=== PATIENT | female | born 1945 | race Two or more races ===

== ENCOUNTER 2018-10-28 00:53 | Inpatient (IN) | payer MEDICARE, MEDICAID ==
[2018-10-28] VITALS (7 sets, daily range): BP systolic 100–155; BP diastolic 66–80
[~2018-10-28] VITALS: Ht 154.9 cm; Wt 54.6 kg
--- NOTE | 2018-10-28 00:53 | NUR ---
ED Nurse Note: Patient marium from [facility] c/o ALOC that started about 14 today, patients baseline is alert and oriented x0. patient responds to deep pain, patient is nonverbal and is trached. patient presents with a disheveled apperance, has a pressure ulcer on the lower coccyx area, presents with no fever. initially [facility] called due to patient having an episode of hypotensiveness, states that it was 70/40 initially. when EMS got to the facility, stated blood pressure was 118/72. at time of arrival patients blood pressure is 103/82. IV started on right wrist 18 gauge, barboza inserted. will wait for further oders
--- NOTE | 2018-10-28 00:55 | NUR ---
RESPIRATORY NOTE: Pt received in ER, placed on vent with settings AC/VC 16, 500 VT, FiO2 40%, PEEP +5. Pt is trach-dependent with cuffed portex 7. Bilateral rhonchi breath sounds noted upon auscultation. Thin white, yellow secretions noted upon sxn. Pt is disoriented. No respiratory distress noted. Alarms on and audible. Ambubag present in room. Will continue to monitor.
--- NOTE | 2018-10-28 01:17 | Emergency Room Report ---
History of Present Illness General Chief Complaint: Altered Level of Consciousness Source: Medical Record, EMS Present Illness HPI This is a 72-year-old female who is vent dependent and also has a tracheostomy and G-tube. She presents with low blood pressure. detention called 911 because her blood pressure was 70/40. On arrival at the [facility], EMS got blood pressure 120/70. detention decided to send the patient here for evaluation just in case. Unable to get any history from this patient. She is nonverbal. There is no fever chills. There is no cough or congestion. Allergies: Coded Allergies: No Known Allergies (Unverified , 10/28/18) Patient History Past Medical History: see triage record, old chart reviewed Past Surgical History: other Pertinent Family History: none Social History: Denies: smoking Now: No Immunizations: other Reviewed Nursing Documentation: PMH: Agreed; PSxH: Agreed Nursing Documentation-PMH Hx Cardiac Problems: No Hx Hypertension: No Hx Pacemaker: No Hx COPD: No - TRACHEOSTOMY Hx Diabetes: No - GASTROSTOMY Hx Cancer: No - MALIGNANT NEOPLASM Hx Gastrointestinal Problems: No Hx Dialysis: No - PRESSURE ULCER ON L HIP, SACRAL, OTHER SITE Hx Neurological Problems: No - RESP FAILURE, DYSPHAGIA, ENCEPHALOPATHY Hx Cerebrovascular Accident: No Hx Seizures: No Review of Systems All Other Systems: limited - Secondary to patient condition Physical Exam Vital Signs Date Time Temp Pulse Resp B/P (MAP) Pulse Ox O2 Delivery O2 Flow Rate FiO2 10/28/18 00:51 98.8 81 20 120/76 (91) Room Air Vitals normal Sp02 EP Interpretation: reviewed, normal General Appearance: normal inspection, no apparent distress, Postictal Head: normocephalic, atraumatic Eyes: bilateral eye PERRL, bilateral eye EOMI ENT: hearing grossly normal, normal pharynx Neck: full range of motion, supple, no meningismus, tracheotomy Respiratory: chest non-tender, lungs clear, normal breath sounds Cardiovascular #1: regular rate, rhythm, no murmur Gastrointestinal: normal bowel sounds, non tender, no mass, no organomegaly, no bruit, non-distended Musculoskeletal: back normal, other - Contracted Psychiatric: mood/affect normal Medical Decision Making Diagnostic Impression: Primary Impression: HCAP (healthcare-associated pneumonia) Additional Impressions: UTI (urinary tract infection) Qualified Codes: N30.00 - Acute cystitis without hematuria Dehydration Respiratory failure, acute and chronic Qualified Codes: J96.20 - Acute and chronic respiratory failure, unspecified whether with hypoxia or hypercapnia Anemia, chronic disease ER Course Patient with altered mental status and transient hypotension. She does have a left lower lobe infiltrate. Also with UTI. Wide spectrum antibiotics given to cover for H CAP. Blood pressure stable. Patient will be admitted here. I discussed the case with Dr. Frias this patient for admission. Lab Results Impression Labs with leukocytosis and anemia EKG Diagnostic Results Rate: normal Rhythm: NSR ST Segments: no acute changes Rhythm Strip Diag. Results EP Interpretation: yes Rate: 80 Rhythm: NSR, no PVC's, no ectopy Chest X-Ray Diagnostic Results Chest X-Ray Diagnostic Results : Chest X-Ray Ordered: Yes # of Views/Limited/Complete: 1 View Indication: Shortness of Breath EP Interpretation: Yes Interpretation: no effusion, no pneumothorax, other - Left lower lobe infiltrate Impression: Other - LLL infiltrate Last Vital Signs Date Time Temp Pulse Resp B/P (MAP) Pulse Ox O2 Delivery O2 Flow Rate FiO2 10/28/18 00:51 98.8 81 20 120/76 (91) Room Air Status: improved Disposition: ADMITTED INPATIENT Condition: Serious Chris Holt MD Oct 28, 2018 01:17
[2018-10-28 01:41] LABS: APPEARANCE,URINE CLEAR; BILIRUBIN, URINE NEGATIVE (NEGATIVE); COLOR,URINE PALE YELLOW; GLUCOSE, URINE (UA) NEGATIVE (NEGATIVE); KETONES,URINE NEGATIVE (NEGATIVE); LEUKOCYTE ESTERASE ,URINE 2+ (NEGATIVE); NITRITE,URINE NEGATIVE (NEGATIVE); PH,URINE 7 (4.5-8.0); PROTEIN,URINE 1+ (NEGATIVE); UROBILINOGEN,URINE 1 MG/DL (0.0-1.0)
[2018-10-28 01:44] LABS: BASOPHILS % (AUTO) 0.4 % (0.0-2.0); EOSINOPHILS % (AUTO) 3.1 % (0.0-3.0); HEMATOCRIT 26.7 % (37.0-47.0); HEMOGLOBIN 8.4 G/DL (12.0-16.0); LYMPHOCYTES % (AUTO) 15.3 % (20.0-45.0); MEAN CORPUSCULAR VOLUME 93 FL (80-99); MONOCYTES % (AUTO) 4.6 % (1.0-10.0); NEUTROPHILS % (AUTO) 76.5 % (45.0-75.0); PLATELET COUNT 287 K/UL (150-450); RED BLOOD COUNT 2.86 M/UL (4.20-5.40); RED CELL DISTRIBUTION WIDTH 18.2 % (11.6-14.8); WHITE BLOOD COUNT 12.1 K/UL (4.8-10.8)
[2018-10-28 01:45] LABS: ANION GAP 6 mmol/L (5-15); BLOOD UREA NITROGEN 50 mg/dL (7-18); CALCIUM 9.4 MG/DL (8.5-10.1); CARBON DIOXIDE 36 MMOL/L (21-32); CHLORIDE 98 MMOL/L (98-107); CREATININE 0.6 MG/DL (0.55-1.30); POTASSIUM 4.7 MMOL/L (3.5-5.1); SODIUM 139 MMOL/L (136-145)
[2018-10-28 01:58] LABS: ALANINE AMINOTRANSFERASE 39 U/L (12-78); ALBUMIN 1.8 G/DL (3.4-5.0); ALBUMIN/GLOBULIN RATIO 0.3 (1.0-2.7); ALKALINE PHOSPHATASE 181 U/L (46-116); ASPARTATE AMINO TRANSFERASE 80 U/L (15-37); BILIRUBIN,TOTAL 0.3 MG/DL (0.2-1.0); CKMB 1.2 NG/ML (0.0-3.6); CREATINE KINASE 66 U/L (26-308)
[2018-10-28] MEDS ORDERED: Cefepime HCl 1 GM in D5W 55 ML IVPB ONE (02:00)
--- NOTE | 2018-10-28 02:30 | NUR ---
ED Nurse Note: Patient at no distress at this time
--- NOTE | 2018-10-28 03:15 | NUR ---
TRANSFER TO FLOOR: Patient transferred to SDU as ordered, per . Report given to EPIFANIO Pulido
[2018-10-28] MEDS ORDERED: LEVOTHYROXINE75 MCG ORAL (03:16)
[2018-10-28] MEDS ORDERED: METOPROLOL TART50 M1 ORAL (03:16)
[2018-10-28] MEDS ORDERED: ZOFRAN4 M3 ORAL (03:16)
[2018-10-28] MEDS ORDERED: PANTOPRAZOLE SO40 MG ORAL (03:16)
[2018-10-28] MEDS ORDERED: FUROSEMIDE20 M1 ORAL (03:16)
[2018-10-28] MEDS ORDERED: POTASSIUM BICARB1 GM MC (03:16)
[2018-10-28] MEDS ORDERED: LOSARTAN-HCTZ1 EAC2 ORAL (03:16)
[2018-10-28] MEDS ORDERED: ACIDOPHILUS1 EAC6 PO (03:16)
[2018-10-28] MEDS ORDERED: REFRESH OPTIVE1 EAC1 OP (03:16)
--- NOTE | 2018-10-28 03:29 | NUR ---
NURSE NOTES: RECEIVED PATIENT FROM ER NURSE/ARVIND [facility]IA [facility]. PATIENT NO RESPONSE TO VERBALLY STIMULI, ON TRACH TO VENT AC 16/TV500/FIO2 40%/PEEP5, O2 SATURATION 100% NOTED, ABDOMEN SOFT, HYPOACTIVE BOWEL SOUND TO 4 QUADRANTS, NO BOWEL MOVEMENT STATUS, G TUBE TO LEFT UPPER QUADRANT, INTACT AND PATENT, F/C INTACT AND PATENT, YELLOW URINE OUTED, PERIPHERAL LINE TO RIGHT WRIST 18G, INTACT AND PATENT, ONGOING LEVAQUIN IVPB, CONTRACTED, SKIN TEAR TO LEFT CHIN AND NECK AREA, PRESSURE WOUND TO LEFT EAR AND SACRAL, MADE LOWER BED POSITION, ON BED ALARM, WILL CONTINUE TO MONITOR.
--- NOTE | 2018-10-28 04:27 | NUR ---
NURSE NOTES: CALLED DR. BLANK REGARDING ADMISSION ORDER, LEFT MESSAGE.
--- NOTE | 2018-10-28 04:40 | NUR ---
NURSE NOTES: CALLED BACK FROM DR. BLANK, RECEIVED ADMISSION ORDER AND CARRIED OUT.
[2018-10-28] MEDS ORDERED: Albuterol/Ipratropium 3ml neb HHN PRN (05:00)
[2018-10-28] MEDS ORDERED: Milk of Magnesia 30ml Ud GT PRN (05:00)
--- NOTE | 2018-10-28 05:31 | NUR ---
RESPIRATORY NOTE: While doing trach care, noticed redness and minimal bleeding outside the stoma. RN notified.
[2018-10-28] MEDS ORDERED: OMEPRAZOLE20 M2 GT ×2 (06:13→19:20)
[2018-10-28] MEDS ORDERED: DUONEB 0.5-3(2.53 ML HHN ×2 (06:13)
[2018-10-28] MEDS ORDERED: ZOFRAN 4 MG4 MG/2 ML IV (06:33)
[2018-10-28] MEDS ORDERED: MILK OF MA400 MG/51 GT (06:33)
[2018-10-28] MEDS ORDERED: ATORVASTATIN CA10 MG GT (06:33)
[2018-10-28] MEDS ORDERED: LEVOTHYROXINE75 MCG GT (06:33)
[2018-10-28] MEDS ORDERED: FUROSEMIDE20 M1 GT (06:33)
[2018-10-28] MEDS ORDERED: ACIDOPHILUS1 EAC6 GT (06:33)
[2018-10-28] MEDS ORDERED: SENNA8.6 M2 GT (06:33)
[2018-10-28] MEDS ORDERED: VITAMIN C500 M1 GT (06:33)
[2018-10-28] MEDS ORDERED: MULTI-DELYN237 ML GT (06:33)
[2018-10-28] MEDS ORDERED: METOPROLOL TART50 M1 GT (06:33)
[2018-10-28] MEDS ORDERED: COLACE100 MG GT (06:33)
[2018-10-28] MEDS ORDERED: ACETAMINOPHEN325 M1 GT (06:33)
--- NOTE | 2018-10-28 06:36 | Consultation ---
History of Present Illness General Date patient seen: Oct 28, 2018 Chief Complaint: Altered Level of Consciousness Present Illness HPI 72 year old female with hx of sudden cardiac arrest, hypoxemic encephalopathy, s /p tracheostomy, s/p PEG, hypothyroid, HTN, CHF, COPD, on total life support in a subacute unit, was brought to ER with CC of Altered and less responsive and possible pneumonia. Allergies: Coded Allergies: No Known Allergies (Unverified , 10/28/18) Medication History Scheduled Furosemide* (Lasix*), 20 MG ORAL DAILY, (Reported) Ipratropium/Albuterol Sulfate (DuoNeb 0.5-3(2.5)mg/3ml), 3 ML HHN Q6HR, ( Reported) Levothyroxine Sodium* (Levothyroxine Sodium*), 75 MCG ORAL DAILY, (Reported) Losartan/Hydrochlorothiazide (Losartan-Hctz 50-12.5 Mg Tab), 1 TAB ORAL DAILY, ( Reported) Metoprolol Tartrate* (Metoprolol Tartrate*), 50 MG ORAL EVERY 12 HOURS, ( Reported) Omeprazole (Omeprazole), 20 MG GT DAILY, (Reported) Pantoprazole* (Pantoprazole*), 40 MG ORAL DAILY, (Reported) Scheduled PRN Ipratropium/Albuterol Sulfate (DuoNeb 0.5-3(2.5)mg/3ml), 3 ML HHN Q3HR PRN for Shortness of Breath, (Reported) Ondansetron* (Zofran*), 4 MG ORAL Q6H PRN for Nausea & Vomiting, (Reported) Miscellaneous Medications Carboxymethyl/Gly/Poly80/Pf (Refresh Optive Advanced Drops), 1 EACH OP, ( Reported) Lactobacillus Acidophilus (Acidophilus), 1 EACH PO, (Reported) Potassium Bicarbonate (Potassium Bicarbonate), 1 GM MC, (Reported) Patient History Healthcare decision maker Resuscitation status Advanced Directive on File Past Medical/Surgical History Past Medical/Surgical History: (1) PRESSURE WOUND (2) History of sudden cardiac arrest (3) Neoplasm of esophagus, malignant (4) Acute and chronic respiratory failure (5) Hypothyroidism (6) History of CHF (congestive heart failure) Review of Systems All Other Systems: negative except mentioned in HPI Physical Exam General Appearance: WD/WN Lines, tubes and drains: peripheral HEENT: normocephalic, atraumatic Neck: non-tender, normal alignment Respiratory/Chest: chest wall non-tender, lungs clear Breasts: no masses Cardiovascular/Chest: normal peripheral pulses, normal rate Abdomen: normal bowel sounds, non tender Genitourinary/Rectal: normal rectal exam Extremities: normal range of motion, non-tender Skin Exam: normal pigmentation Physical Exam Narrative very big decubiti ulcer. Last 24 Hour Vital Signs Date Time Temp Pulse Resp B/P (MAP) Pulse Ox O2 Delivery O2 Flow Rate FiO2 10/28/18 05:25 100 16 40 10/28/18 04:00 101 10/28/18 04:00 40 10/28/18 03:30 98.4 104 24 139/72 (94) 95 10/28/18 03:23 100 24 40 10/28/18 03:15 98.0 83 16 119/65 100 Mechanical Ventilator 40 10/28/18 03:06 98.2 89 16 123/69 99 Mechanical Ventilator 10/28/18 00:55 79 24 40 10/28/18 00:55 79 24 100 Mechanical Ventilator 40 10/28/18 00:53 98.8 83 20 115/73 100 Mechanical Ventilator 10/28/18 00:53 81 20 Endotracheal Tube 10/28/18 00:51 98.8 81 20 120/76 (91) Room Air Intake and Output 10/27/18 10/28/18 19:00 07:00 Intake Total 2000 ml Output Total 200 ml Balance 1800 ml Intake IV Total 2000 ml Output Urine Total 200 ml Laboratory Tests Test 10/28/18 01:05 White Blood Count 12.1 K/UL (4.8-10.8) H Red Blood Count 2.86 M/UL (4.20-5.40) L Hemoglobin 8.4 G/DL (12.0-16.0) L Hematocrit 26.7 % (37.0-47.0) L Mean Corpuscular Volume 93 FL (80-99) Mean Corpuscular Hemoglobin 29.5 PG (27.0-31.0) Mean Corpuscular Hemoglobin Concent 31.7 G/DL (32.0-36.0) L Red Cell Distribution Width 18.2 % (11.6-14.8) H Platelet Count 287 K/UL (150-450) Mean Platelet Volume 6.6 FL (6.5-10.1) Neutrophils (%) (Auto) 76.5 % (45.0-75.0) H Lymphocytes (%) (Auto) 15.3 % (20.0-45.0) L Monocytes (%) (Auto) 4.6 % (1.0-10.0) Eosinophils (%) (Auto) 3.1 % (0.0-3.0) H Basophils (%) (Auto) 0.4 % (0.0-2.0) Urine Color Pale yellow Urine Appearance Clear Urine pH 7 (4.5-8.0) Urine Specific Startex 1.010 (1.005-1.035) Urine Protein 1+ (NEGATIVE) H Urine Glucose (UA) Negative (NEGATIVE) Urine Ketones Negative (NEGATIVE) Urine Blood Negative (NEGATIVE) Urine Nitrite Negative (NEGATIVE) Urine Bilirubin Negative (NEGATIVE) Urine Urobilinogen 1 MG/DL (0.0-1.0) H Urine Leukocyte Esterase 2+ (NEGATIVE) H Urine RBC 2-4 /HPF (0 - 2) H Urine WBC 30-40 /HPF (0 - 2) H Urine Squamous Epithelial Cells Few /LPF (NONE/OCC) Urine Bacteria Few /HPF (NONE) Urine Yeast Few /HPF (NONE) H Sodium Level 139 MMOL/L (136-145) Potassium Level 4.7 MMOL/L (3.5-5.1) Chloride Level 98 MMOL/L (98-107) Carbon Dioxide Level 36 MMOL/L (21-32) H Anion Gap 6 mmol/L (5-15) Blood Urea Nitrogen 50 mg/dL (7-18) H Creatinine 0.6 MG/DL (0.55-1.30) Estimat Glomerular Filtration Rate mL/min (>60) Glucose Level 121 MG/DL (74-106) H Lactic Acid Level 1.90 mmol/L (0.4-2.0) Calcium Level 9.4 MG/DL (8.5-10.1) Total Bilirubin 0.3 MG/DL (0.2-1.0) Aspartate Amino Transf (AST/SGOT) 80 U/L (15-37) H Alanine Aminotransferase (ALT/SGPT) 39 U/L (12-78) Alkaline Phosphatase 181 U/L (46-116) H Total Creatine Kinase 66 U/L (26-308) Creatine Kinase MB 1.2 NG/ML (0.0-3.6) Creatine Kinase MB Relative Index 1.8 Troponin I 0.017 ng/mL (0.000-0.056) Total Protein 7.6 G/DL (6.4-8.2) Albumin 1.8 G/DL (3.4-5.0) L Globulin 5.8 g/dL Albumin/Globulin Ratio 0.3 (1.0-2.7) L Height (Feet): 5 Weight (Pounds): 180 Medications Current Medications Medications (Trade) Dose Ordered Sig/Reginaldo Route PRN Reason Start Time Stop Time Status Last Admin Dose Admin Acetaminophen (Tylenol) 650 mg Q4H PRN GT Mild Pain/Temp > 100.5 10/28/18 05:00 11/27/18 04:59 Albuterol/ Ipratropium (Albuterol/ Ipratropium) 3 ml Q3H PRN N Shortness of Breath 10/28/18 05:00 11/02/18 04:59 Albuterol/ Ipratropium (Albuterol/ Ipratropium) 3 ml Q6HRT HHN 10/28/18 07:00 11/02/18 06:59 Artificial Tears (Akwa-Tears) 1 drop TID BOTH EYES 10/28/18 09:00 11/27/18 08:59 Ascorbic Acid (Vitamin C) 500 mg DAILY GT 10/28/18 09:00 11/27/18 08:59 Atorvastatin Calcium (Lipitor) 10 mg BEDTIME GT 10/28/18 21:00 11/27/18 20:59 Cefepime HCl 1 gm/ Dextrose 55 ml @ 110 mls/hr Q24H IVPB 10/29/18 02:00 11/05/18 01:59 Docusate Sodium (Colace) 100 mg DAILY ORAL 10/28/18 09:00 11/27/18 08:59 Heparin Sodium (Porcine) (Heparin 5000 units/ml) 5,000 units EVERY 12 HOURS SUBQ 10/28/18 09:00 11/27/18 08:59 Lactobacillus Acidophilus (Culturelle) 1 tab DAILY GT 10/28/18 09:00 11/27/18 08:59 Lansoprazole (Prevacid) 30 mg BID GT 10/28/18 09:00 11/27/18 08:59 Levofloxacin 150 ml @ 100 mls/hr Q48H IVPB 10/29/18 03:00 11/05/18 02:59 Levothyroxine Sodium (Synthroid) 75 mcg DAILY@0630 GT 10/28/18 06:30 11/27/18 06:29 10/28/18 05:56 Losartan Potassium (Cozaar) 12.5 mg DAILY GT 10/28/18 09:00 11/27/18 08:59 Magnesium Hydroxide (Mom) 30 ml HSPRN PRN GT Constipation 10/28/18 05:00 11/27/18 04:59 Multivitamins (Multivitamins) 1 tab DAILY GT 10/28/18 09:00 11/27/18 08:59 Ondansetron HCl (Zofran) 4 mg Q4H PRN IVP Nausea & Vomiting 10/28/18 05:00 11/27/18 04:59 Sennosides (Senokot) 17.2 mg BEDTIME GT 10/28/18 21:00 11/27/18 20:59 Vitamin D (Vitamin D) 5,000 intlu DAILY GT 10/28/18 09:00 11/27/18 08:59 Assessment/Plan Problem List: (1) Respiratory failure, acute and chronic ICD Codes: J96.20 - Acute and chronic respiratory failure, unspecified whether with hypoxia or hypercapnia SNOMED: 40876916, [id number] Qualifiers: Qualified Codes: J96.20 - Acute and chronic respiratory failure, unspecified whether with hypoxia or hypercapnia (2) HCAP (healthcare-associated pneumonia) ICD Codes: J18.9 - Pneumonia, unspecified organism SNOMED: 573776125, 147214447 (3) ATN (acute tubular necrosis) ICD Codes: N17.0 - Acute kidney failure with tubular necrosis SNOMED: 81184852 (4) Dehydration ICD Codes: E86.0 - Dehydration SNOMED: 73113426, 086446983 (5) Hypothyroidism ICD Codes: E03.9 - Hypothyroidism, unspecified SNOMED: 60557897 (6) PRESSURE WOUND (7) Anemia, chronic disease ICD Codes: D63.8 - Anemia in other chronic diseases classified elsewhere SNOMED: 770687289, 850557631 (8) History of CHF (congestive heart failure) ICD Codes: Z86.79 - Personal history of other diseases of the circulatory system SNOMED: 718518263 (9) Neoplasm of esophagus, malignant ICD Codes: C15.9 - Malignant neoplasm of esophagus, unspecified SNOMED: 264286111 (10) History of sudden cardiac arrest ICD Codes: Z86.74 - Personal history of sudden cardiac arrest SNOMED: 45572148, 024047468 Respiratory: monitor respiratory rate, adjust FIO2, CXR Cardiac: continue to monitor HR/BP Renal: F/U I&O Infectious Disease: check cultures, continue antibiotics Gastrointestinal: continue feedings/current rate Endocrine: monitor blood sugar Neurologic: PRN Ativan, PRN Morphine Affect: PRN ativan Prophylaxis: Heparin Time Spent (Minutes): 40 Discussed with: nurses Belem Brooke MD Oct 28, 2018 06:36
--- NOTE | 2018-10-28 06:40 | NUR ---
NURSE NOTES: SEEN THE PATIENT BY DR. OROCSO, MADE NEW ORDER.
[2018-10-28] MEDS ORDERED: EFFER-K 20 MEQ20 MEQ GT (06:41)
[2018-10-28] MEDS ORDERED: LOSARTAN POTASS25 MG GT (06:41)
[2018-10-28] MEDS ORDERED: VITAMIN D1000 UNI1 GT (06:42)
[2018-10-28 07:21] LABS: HEMATOCRIT 25.2 % (37.0-47.0); MEAN CORPUSCULAR VOLUME 94 FL (80-99); PLATELET COUNT 262 K/UL (150-450); RED BLOOD COUNT 2.67 M/UL (4.20-5.40); RED CELL DISTRIBUTION WIDTH 18.6 % (11.6-14.8); WHITE BLOOD COUNT 13.9 K/UL (4.8-10.8)
[2018-10-28 07:22] LABS: BASOPHILS % (AUTO) 0.2 % (0.0-2.0); EOSINOPHILS % (AUTO) 2.4 % (0.0-3.0); LYMPHOCYTES % (AUTO) 8.9 % (20.0-45.0); NEUTROPHILS % (AUTO) 82.4 % (45.0-75.0)
--- NOTE | 2018-10-28 07:31 | NUR ---
NURSE NOTES: Report received from EPIFANIO Pulido. Observed patient in bed sleeping. Open eyes with shaking, non-verbal. On ventilator with previous setting and pt. is tolerated well with ventilator. No s/s of pain at this time. IV site intact and patent. GT site intact. GT feeding is on hold at this time due to Synthroid. F/C intact and draining well. Bed in lowest position. Call light within reach. Will continue to monitor.
[2018-10-28 07:43] LABS: ALANINE AMINOTRANSFERASE 35 U/L (12-78); ANION GAP 6 mmol/L (5-15); ASPARTATE AMINO TRANSFERASE 69 U/L (15-37); BLOOD UREA NITROGEN 38 mg/dL (7-18); CALCIUM 8.6 MG/DL (8.5-10.1); CARBON DIOXIDE 34 MMOL/L (21-32); CHLORIDE 102 MMOL/L (98-107); CREATININE 0.5 MG/DL (0.55-1.30); POTASSIUM 3.8 MMOL/L (3.5-5.1); SODIUM 141 MMOL/L (136-145)
[2018-10-28] MEDS: Losartan 25mg tab GT SCH (08:26)
[2018-10-28] MEDS: Artificial Tears 1.4% Op Soln BOTH EYES SCH ×3 (08:33→17:46)
[2018-10-28] MEDS: Lactobacillus-GG tablet GT SCH (08:33)
[2018-10-28] MEDS: Docusate 100mg/10ml Liq GT SCH (08:33)
[2018-10-28] MEDS: Acetaminophen 650mg/20.3ml GT PRN ×2 (08:34→16:09)
[2018-10-28] MEDS ORDERED: Ascorbic Acid 500mg tab GT SCH (09:00)
[2018-10-28] MEDS ORDERED: Heparin 5000 units/ml inj SUBQ SCH (09:00)
[2018-10-28] MEDS ORDERED: Vitamin D 1000 IU Tab GT SCH (09:00)
[2018-10-28 09:03] LABS: INR 1.1 (0.9-1.1)
[2018-10-28 09:16] LABS: CREATINE KINASE 42 U/L (26-308)
[2018-10-28 09:21] LABS: APPEARANCE,URINE CLEAR; BILIRUBIN, URINE NEGATIVE (NEGATIVE); COLOR,URINE PALE YELLOW; GLUCOSE, URINE (UA) NEGATIVE (NEGATIVE); KETONES,URINE NEGATIVE (NEGATIVE); LEUKOCYTE ESTERASE ,URINE 1+ (NEGATIVE); NITRITE,URINE NEGATIVE (NEGATIVE); PH,URINE 6 (4.5-8.0); PROTEIN,URINE 1+ (NEGATIVE); UROBILINOGEN,URINE NORMAL MG/DL (0.0-1.0)
--- NOTE | 2018-10-28 09:22 | NUR ---
RADIOLOGY DEPT., CHEST X-RAY DONE.-P.DYE
[2018-10-28 09:28] LABS: LACTATE DEHYDROGENASE 299 U/L (81-234)
[2018-10-28 09:48] LABS: % IRON SATURATION 11 % (15-50); IRON 20 ug/dL (50-175); TOTAL IRON BINDING CAPACITY 174 ug/dL (250-450)
[2018-10-28] MEDS: Albuterol/Ipratropium 3ml neb HHN SCH ×3 (09:55→19:44)
--- NOTE | 2018-10-28 10:36 | Diagnostic Imaging Report ---
Indication: Dyspnea Comparison: None A single view chest radiograph was obtained. Findings: The interstitium of the lung is prominent. Heart is enlarged. There may be a small left pleural effusion. Tracheostomy is present. Aorta is ectatic and bones are osteopenic. IMPRESSION: Prominent interstitium. Suspect chronic disease or fibrosis. Superimposed pneumonitis or mild CHF not excluded. Please correlate clinically. Possible small left pleural effusion Tracheostomy.
--- NOTE | 2018-10-28 11:39 | Consultation ---
History of Present Illness General Date patient seen: Oct 28, 2018 Chief Complaint: Altered Level of Consciousness Present Illness HPI 72 year old female skilled nursing resident with multiple medical comorbidities presented with hypotension, tachycardia, leukocytosis, sepsis. On admission noted to have multiple wounds requiring care. surgery called to evaluate and assist with care. patient seen, chart reviewed, patient examined. Allergies: Coded Allergies: No Known Allergies (Unverified , 10/28/18) Medication History Scheduled Atorvastatin Calcium* (Lipitor*), 10 MG GT BEDTIME, (Reported) Carboxymethyl/Gly/Poly80/Pf (Refresh Optive Advanced Drops), 1 DRP OP TID, ( Reported) Cholecalciferol (Vitamin D3)* (Vitamin D*), 5,000 UNIT GT DAILY, (Reported) Cran/Vitc/Mannose/Inulin/Brom (Uti-Stat Liquid), 30 ML GT BID, (Reported) Docusate Sodium* (Colace*), 100 MG GT DAILY, (Reported) Furosemide* (Lasix*), 20 MG GT DAILY, (Reported) Lactobacillus Acidophilus (Acidophilus), 1 EACH GT DAILY, (Reported) Levothyroxine Sodium* (Levothyroxine Sodium*), 75 MCG GT DAILY, (Reported) Losartan Potassium* (Losartan Potassium*), 12.5 MG GT DAILY, (Reported) Metoprolol Tartrate* (Metoprolol Tartrate*), 50 MG GT EVERY 12 HOURS, (Reported) Omeprazole (Omeprazole), 20 MG GT TWICE A DAY, (Reported) Potassium Bicarbonate/Cit Ac (Effer-K 20 Meq Tablet Eff), 40 MEQ GT DAILY, ( Reported) Sennosides (Senna), 17.2 MG GT QHS, (Reported) Scheduled PRN Acetaminophen* (Acetaminophen 325MG Tablet*), 650 MG GT Q4H PRN for Mild Pain/ Temp > 100.5, (Reported) Magnesium Hydroxide* (Milk Of Magnesia*), 30 ML GT QHS PRN for INEFFECTIVE COLACE, (Reported) Ondansetron* (Zofran*), 4 MG IV Q4HR PRN for Nausea & Vomiting, (Reported) Discontinued Medications Ascorbic Acid* (Vitamin C*), 500 MG GT DAILY, (Reported) Discontinued Reason: Pt stopped taking med Ipratropium/Albuterol Sulfate (DuoNeb 0.5-3(2.5)mg/3ml), 3 ML HHN Q3HR PRN for Shortness of Breath, (Reported) Discontinued Reason: Pt stopped taking med Ipratropium/Albuterol Sulfate (DuoNeb 0.5-3(2.5)mg/3ml), 3 ML HHN Q6HR, ( Reported) Discontinued Reason: Pt stopped taking med Lactobacillus Acidophilus (Acidophilus), 1 EACH PO, (Reported) Discontinued Reason: Pt stopped taking med Multivitamin Liquid* (Multi-Delyn*), 5 ML GT DAILY, (Reported) Discontinued Reason: Pt stopped taking med Omeprazole (Omeprazole), 20 MG GT DAILY, (Reported) Discontinued Reason: Pt stopped taking med Patient History Limited by: medical condition History Provided By: Medical Record, PMD Healthcare decision maker Resuscitation status Full Code Advanced Directive on File Past Medical/Surgical History Past Medical/Surgical History: (1) ATN (acute tubular necrosis) (2) Respiratory failure, acute and chronic (3) Anemia, chronic disease (4) Dehydration (5) UTI (urinary tract infection) (6) HCAP (healthcare-associated pneumonia) (7) PRESSURE WOUND (8) History of sudden cardiac arrest (9) Neoplasm of esophagus, malignant (10) Acute and chronic respiratory failure (11) Hypothyroidism (12) History of CHF (congestive heart failure) Review of Systems ROS Narrative cannot provide given medical condition Physical Exam General Appearance: no apparent distress Lines, tubes and drains: peripheral HEENT: mucous membranes moist Neck: trach Respiratory/Chest: on vent Cardiovascular/Chest: tachycardia Abdomen: soft, no organomegaly, no mass, feeding tube Extremities: normal inspection, other Skin Exam: warm/dry, other Neurologic: other Last 24 Hour Vital Signs Date Time Temp Pulse Resp B/P (MAP) Pulse Ox O2 Delivery O2 Flow Rate FiO2 10/28/18 11:32 40 10/28/18 10:59 118 16 40 10/28/18 09:05 120 16 40 10/28/18 09:04 99.7 10/28/18 08:26 106/75 10/28/18 08:00 40 10/28/18 08:00 100.9 113 16 106/75 (85) 95 10/28/18 08:00 114 10/28/18 08:00 Mechanical Ventilator 10/28/18 07:15 115 16 100 Mechanical Ventilator 50.0 40 10/28/18 07:00 115 16 100 Mechanical Ventilator 50.0 40 10/28/18 06:33 68 16 40 10/28/18 05:25 100 16 40 10/28/18 04:00 101 10/28/18 04:00 40 10/28/18 04:00 Mechanical Ventilator 10/28/18 03:35 Mechanical Ventilator 10/28/18 03:30 98.4 104 24 139/72 (94) 95 10/28/18 03:23 100 24 40 10/28/18 03:15 98.0 83 16 119/65 100 Mechanical Ventilator 40 10/28/18 03:06 98.2 89 16 123/69 99 Mechanical Ventilator 10/28/18 00:55 79 24 40 10/28/18 00:55 79 24 100 Mechanical Ventilator 40 10/28/18 00:53 98.8 83 20 115/73 100 Mechanical Ventilator 10/28/18 00:53 81 20 Endotracheal Tube 10/28/18 00:51 98.8 81 20 120/76 (91) Room Air Intake and Output 10/27/18 10/28/18 18:59 06:59 Intake Total 2000 ml Output Total 200 ml Balance 1800 ml IV Total 2000 ml Output Urine Total 200 ml Laboratory Tests Test 10/28/18 01:05 10/28/18 05:00 10/28/18 05:20 10/28/18 08:05 White Blood Count 12.1 K/UL (4.8-10.8) H 13.9 K/UL (4.8-10.8) H Red Blood Count 2.86 M/UL (4.20-5.40) L 2.67 M/UL (4.20-5.40) L Hemoglobin 8.4 G/DL (12.0-16.0) L 8.0 G/DL (12.0-16.0) L Hematocrit 26.7 % (37.0-47.0) L 25.2 % (37.0-47.0) L Mean Corpuscular Volume 93 FL (80-99) 94 FL (80-99) Mean Corpuscular Hemoglobin 29.5 PG (27.0-31.0) 29.9 PG (27.0-31.0) Mean Corpuscular Hemoglobin Concent 31.7 G/DL (32.0-36.0) L 31.7 G/DL (32.0-36.0) L Red Cell Distribution Width 18.2 % (11.6-14.8) H 18.6 % (11.6-14.8) H Platelet Count 287 K/UL (150-450) 262 K/UL (150-450) Mean Platelet Volume 6.6 FL (6.5-10.1) 6.3 FL (6.5-10.1) L Neutrophils (%) (Auto) 76.5 % (45.0-75.0) H 82.4 % (45.0-75.0) H Lymphocytes (%) (Auto) 15.3 % (20.0-45.0) L 8.9 % (20.0-45.0) L Monocytes (%) (Auto) 4.6 % (1.0-10.0) 6.0 % (1.0-10.0) Eosinophils (%) (Auto) 3.1 % (0.0-3.0) H 2.4 % (0.0-3.0) Basophils (%) (Auto) 0.4 % (0.0-2.0) 0.2 % (0.0-2.0) Urine Color Pale yellow Urine Appearance Clear Urine pH 7 (4.5-8.0) Urine Specific [place] 1.010 (1.005-1.035) Urine Protein 1+ (NEGATIVE) H Urine Glucose (UA) Negative (NEGATIVE) Urine Ketones Negative (NEGATIVE) Urine Blood Negative (NEGATIVE) Urine Nitrite Negative (NEGATIVE) Urine Bilirubin Negative (NEGATIVE) Urine Urobilinogen 1 MG/DL (0.0-1.0) H Urine Leukocyte Esterase 2+ (NEGATIVE) H Urine RBC 2-4 /HPF (0 - 2) H Urine WBC 30-40 /HPF (0 - 2) H Urine Squamous Epithelial Cells Few /LPF (NONE/OCC) Urine Bacteria Few /HPF (NONE) Urine Yeast Few /HPF (NONE) H Sodium Level 139 MMOL/L (136-145) 141 MMOL/L (136-145) Potassium Level 4.7 MMOL/L (3.5-5.1) 3.8 MMOL/L (3.5-5.1) Chloride Level 98 MMOL/L (98-107) 102 MMOL/L (98-107) Carbon Dioxide Level 36 MMOL/L (21-32) H 34 MMOL/L (21-32) H Anion Gap 6 mmol/L (5-15) 6 mmol/L (5-15) Blood Urea Nitrogen 50 mg/dL (7-18) H 38 mg/dL (7-18) H Creatinine 0.6 MG/DL (0.55-1.30) 0.5 MG/DL (0.55-1.30) L Estimat Glomerular Filtration Rate mL/min (>60) mL/min (>60) Glucose Level 121 MG/DL (74-106) H 97 MG/DL (74-106) Lactic Acid Level 1.90 mmol/L (0.4-2.0) Calcium Level 9.4 MG/DL (8.5-10.1) 8.6 MG/DL (8.5-10.1) Total Bilirubin 0.3 MG/DL (0.2-1.0) Aspartate Amino Transf (AST/SGOT) 80 U/L (15-37) H 69 U/L (15-37) H Alanine Aminotransferase (ALT/SGPT) 39 U/L (12-78) 35 U/L (12-78) Alkaline Phosphatase 181 U/L (46-116) H Total Creatine Kinase 66 U/L (26-308) 42 U/L (26-308) Creatine Kinase MB 1.2 NG/ML (0.0-3.6) Creatine Kinase MB Relative Index 1.8 Troponin I 0.017 ng/mL (0.000-0.056) Total Protein 7.6 G/DL (6.4-8.2) Albumin 1.8 G/DL (3.4-5.0) L Globulin 5.8 g/dL Albumin/Globulin Ratio 0.3 (1.0-2.7) L Vitamin D 25-Hydroxy Pending 25-Hydroxy Vitamin D2 Pending 25-Hydroxy Vitamin D3 Pending Differential Total Cells Counted 100 Neutrophils % (Manual) 77 % (45-75) H Lymphocytes % (Manual) 4 % (20-45) L Monocytes % (Manual) 5 % (1-10) Eosinophils % (Manual) 1 % (0-3) Basophils % (Manual) 0 % (0-2) Band Neutrophils 13 % (0-8) H Platelet Estimate Adequate Platelet Morphology Normal Hypochromasia 1+ Anisocytosis 2+ Erythrocyte Sedimentation Rate 133 MM/HR (0-30) H Pending Hemoglobin A1c 5.7 % (4.3-6.0) Reticulocyte Count Pending Prothrombin Time 11.4 SEC (9.30-11.50) Prothromb Time International Ratio 1.1 (0.9-1.1) Activated Partial Thromboplast Time 27 SEC (23-33) Uric Acid 3.9 MG/DL (2.6-7.2) Iron Level 20 ug/dL (50-175) L Total Iron Binding Capacity 174 ug/dL (250-450) L Percent Iron Saturation 11 % (15-50) L Unsaturated Iron Binding 154 ug/dL (112-346) Lactate Dehydrogenase 299 U/L (81-234) H Carcinoembryonic Antigen Pending Vitamin B12 Level 1472 PG/ML (193-986) H Folate 45.4 NG/ML (8.6-58.9) Test 10/28/18 08:46 Urine Color Pale yellow Urine Appearance Clear Urine pH 6 (4.5-8.0) Urine Specific [place] 1.010 (1.005-1.035) Urine Protein 1+ (NEGATIVE) H Urine Glucose (UA) Negative (NEGATIVE) Urine Ketones Negative (NEGATIVE) Urine Blood 1+ (NEGATIVE) H Urine Nitrite Negative (NEGATIVE) Urine Bilirubin Negative (NEGATIVE) Urine Urobilinogen Normal MG/DL (0.0-1.0) Urine Leukocyte Esterase 1+ (NEGATIVE) H Urine RBC 0-2 /HPF (0 - 2) Urine WBC 2-4 /HPF (0 - 2) Urine Squamous Epithelial Cells None /LPF (NONE/OCC) Urine Bacteria None /HPF (NONE) Urine Yeast Occasional /HPF (NONE) H Urine Eosinophils None seen (NONE SEEN) Urine Osmolality 519 mOsm/kg (429-449) H Urine Random Creatinine Pending Urine Random Microalbumin Pending Urine Random Sodium < 20 mmol/L (20-110) L Urine Microalbumin/Creatinine Ratio Pending Height (Feet): 5 Height (Inches): 1.00 Weight (Pounds): 96 Medications Current Medications Medications (Trade) Dose Ordered Sig/Reginaldo Route PRN Reason Start Time Stop Time Status Last Admin Dose Admin Acetaminophen (Tylenol) 650 mg Q4H PRN GT Mild Pain/Temp > 100.5 10/28/18 05:00 11/27/18 04:59 10/28/18 08:34 Albuterol/ Ipratropium (Albuterol/ Ipratropium) 3 ml Q3H PRN HHN Shortness of Breath 10/28/18 05:00 11/02/18 04:59 Albuterol/ Ipratropium (Albuterol/ Ipratropium) 3 ml Q6HRT HHN 10/28/18 07:00 11/02/18 06:59 10/28/18 09:55 Artificial Tears (Akwa-Tears) 1 drop TID BOTH EYES 10/28/18 09:00 11/27/18 08:59 10/28/18 08:33 Cefepime HCl 1 gm/ Dextrose 55 ml @ 110 mls/hr Q24H IVPB 10/29/18 02:00 11/05/18 01:59 Dextrose 1,000 ml @ 75 mls/hr [id number] IV 10/28/18 07:00 11/27/18 06:59 10/28/18 06:57 Docusate Sodium (Colace) 100 mg DAILY GT 10/28/18 09:00 11/27/18 08:59 10/28/18 08:33 Heparin Sodium (Porcine) (Heparin 5000 units/ml) 5,000 units EVERY 12 HOURS SUBQ 10/28/18 09:00 11/27/18 08:59 10/28/18 08:37 Lactobacillus Acidophilus (Culturelle) 1 tab DAILY GT 10/28/18 09:00 11/27/18 08:59 10/28/18 08:33 Lansoprazole (Prevacid) 30 mg BID GT 10/28/18 09:00 11/27/18 08:59 10/28/18 08:33 Levofloxacin 150 ml @ 100 mls/hr Q48H IVPB 10/29/18 03:00 11/05/18 02:59 Levothyroxine Sodium (Synthroid) 75 mcg DAILY@0630 GT 10/28/18 06:30 11/27/18 06:29 10/28/18 05:56 Losartan Potassium (Cozaar) 12.5 mg DAILY GT 10/28/18 09:00 11/27/18 08:59 Magnesium Hydroxide (Mom) 30 ml HSPRN PRN GT Constipation 10/28/18 05:00 11/27/18 04:59 Ondansetron HCl (Zofran) 4 mg Q4H PRN IVP Nausea & Vomiting 10/28/18 05:00 11/27/18 04:59 Assessment/Plan Problem List: (1) Sepsis Assessment & Plan: 72 year old female presented with sepsis. hypotension, tachycardic, leukocytosis. currently in [facility] under good care labs improving on iv abx responding to fluids cont with current care trend labs will follow with recs ICD Codes: A41.9 - Sepsis, unspecified organism SNOMED: 34520834 (2) ATN (acute tubular necrosis) ICD Codes: N17.0 - Acute kidney failure with tubular necrosis SNOMED: 01304595 (3) Respiratory failure, acute and chronic ICD Codes: J96.20 - Acute and chronic respiratory failure, unspecified whether with hypoxia or hypercapnia SNOMED: 61975198, 145788929 Qualifiers: Qualified Codes: J96.20 - Acute and chronic respiratory failure, unspecified whether with hypoxia or hypercapnia (4) Anemia, chronic disease ICD Codes: D63.8 - Anemia in other chronic diseases classified elsewhere SNOMED: 389501797, 782241522 (5) Dehydration ICD Codes: E86.0 - Dehydration SNOMED: 03499692, 218303979 (6) UTI (urinary tract infection) ICD Codes: N39.0 - Urinary tract infection, site not specified SNOMED: 07232272, 102983881 Qualifiers: Qualified Codes: N30.00 - Acute cystitis without hematuria (7) HCAP (healthcare-associated pneumonia) ICD Codes: J18.9 - Pneumonia, unspecified organism SNOMED: 830815901, 223959640 (8) PRESSURE WOUND (9) History of sudden cardiac arrest ICD Codes: Z86.74 - Personal history of sudden cardiac arrest SNOMED: 34565459, 095091754 (10) Neoplasm of esophagus, malignant ICD Codes: C15.9 - Malignant neoplasm of esophagus, unspecified SNOMED: 576115088 (11) Acute and chronic respiratory failure ICD Codes: J96.20 - Acute and chronic respiratory failure, unspecified whether with hypoxia or hypercapnia SNOMED: 51101978 (12) Hypothyroidism ICD Codes: E03.9 - Hypothyroidism, unspecified SNOMED: 11278296 (13) History of CHF (congestive heart failure) ICD Codes: Z86.79 - Personal history of other diseases of the circulatory system SNOMED: 438248819 (14) Decubitus skin ulcer Assessment & Plan: Patient presented with multiple decubitus ulcers unstageable large sacral decubitus - will need debridement left ear and left mandible with skin tears and pressure ulcers - ICD Codes: L89.90 - Pressure ulcer of unspecified site, unspecified stage SNOMED: 545850146 Emory Tran Oct 28, 2018 11:39
--- NOTE | 2018-10-28 12:00 | Diagnostic Imaging Report ---
Indication: Dyspnea Comparison: 10/28/2018 at 01:33 A single view chest radiograph was obtained. Findings: Current study performed 07:51 The lungs are hyperexpanded. There are interstitial opacities bilaterally without change. Heart is borderline enlarged. There is a probable small left pleural effusion. Tracheostomy noted. IMPRESSION: No change from the prior film
--- NOTE | 2018-10-28 12:38 | NUR ---
NURSE NOTES: Noted with episode of A-fib with HR went up to 150'. Informed Dr. Brooke with new order. Order carried out.
[2018-10-28] MEDS ORDERED: Heparin 25,000u/D5W 500ml 500 ML IV SCH ×2 (12:45→19:30)
[2018-10-28] MEDS ORDERED: Digoxin 0.5mg/2ml Inj IVP SCH (12:45)
[2018-10-28] MEDS ORDERED: Heparin 5000 units/ml inj IV ONE (12:45)
--- NOTE | 2018-10-28 13:07 | NUR ---
HAND-OFF: Report given to EPIFANIO Valentine. Informed about episode of new onset of A-fib with RVR and started Heparin drip.
--- NOTE | 2018-10-28 13:12 | NUR ---
NURSE NOTES: Received bedside report from Marsha GODFREY. Heparin drip running at present with 18u/kg/hr rate. PTT at 1900. Will cont. to monitor.
--- NOTE | 2018-10-28 13:52 | NUR ---
CASE MANAGEMENT: INITIAL REVIEW 72 YO F DAY[facility] FROM [facility] CC: [facility]OC PMHx: TRACH. MENDOZAUBE. ENCEPHALOPATHY. Si:HCAP. UTI. T 98.8 HR 108 RR 16 B/P 100/66 SATS 99% ON MECH VENT FIO2 40 WBC 13.9 CO2 34 BUN 38 CR 0.5 LACTATE DEHY 299 AST 69 IS: NS BOLUS X2 CEFEPIME IV X1 LEVOFLOXACIN X1 PATIENT ADMITTED TO SDU 10/28/2018 @ 0223 DCP: PATIENT TO BE DISCHARGED TO SNF ONCE MEDICALLY CLEARED. PLAN OF CARE: 2D ECHO US RENAL CXR Addendum: 10/30/18 at 0754 by Tamie Fairchild CM INTERQUAL MET
--- NOTE | 2018-10-28 16:44 | NUR ---
NURSE NOTES: Called Dr. Martinez (but per Dr. Perez Martinez out of town) told RN to call Dr. Kincaid instead. Call Dr. Kincaid and left a message regarding x1 episode of AFib with RVR HR 150 with orders already from Dr[address] Brooke. Awaiting for response.
--- NOTE | 2018-10-28 17:54 | Cardiology Progress Note ---
Assessment/Plan Assessment/Plan The patient is seen and examined, full consult note will be dictated. Objective Last 24 Hour Vital Signs Date Time Temp Pulse Resp B/P (MAP) Pulse Ox O2 Delivery O2 Flow Rate FiO2 10/28/18 17:24 104 20 40 10/28/18 16:39 99.0 10/28/18 16:00 Mechanical Ventilator 10/28/18 16:00 40 10/28/18 16:00 100.6 119 24 155/79 (104) 97 10/28/18 15:04 108 22 40 10/28/18 13:17 110 20 40 10/28/18 13:10 112 20 100 Mechanical Ventilator 50.0 40 10/28/18 13:00 110 20 100 Mechanical Ventilator 50.0 40 10/28/18 12:53 135 10/28/18 12:00 98.2 108 16 100/66 (77) 99 10/28/18 12:00 106 10/28/18 11:47 Mechanical Ventilator 10/28/18 11:32 40 10/28/18 10:59 118 16 40 10/28/18 09:05 120 16 40 10/28/18 08:26 106/75 10/28/18 08:00 40 10/28/18 08:00 100.9 113 16 106/75 (85) 95 10/28/18 08:00 114 10/28/18 08:00 Mechanical Ventilator 10/28/18 07:15 115 16 100 Mechanical Ventilator 50.0 40 10/28/18 07:00 115 16 100 Mechanical Ventilator 50.0 40 10/28/18 06:33 68 16 40 10/28/18 05:25 100 16 40 10/28/18 04:00 101 10/28/18 04:00 40 10/28/18 04:00 Mechanical Ventilator 10/28/18 03:35 Mechanical Ventilator 10/28/18 03:30 98.4 104 24 139/72 (94) 95 10/28/18 03:23 100 24 40 10/28/18 03:15 98.0 83 16 119/65 100 Mechanical Ventilator 40 10/28/18 03:06 98.2 89 16 123/69 99 Mechanical Ventilator 10/28/18 00:55 79 24 40 10/28/18 00:55 79 24 100 Mechanical Ventilator 40 10/28/18 00:53 98.8 83 20 115/73 100 Mechanical Ventilator 10/28/18 00:53 81 20 Endotracheal Tube 10/28/18 00:51 98.8 81 20 120/76 (91) Room Air Intake and Output 10/27/18 10/28/18 19:00 07:00 Intake Total 2000 ml Output Total 200 ml Balance 1800 ml IV Total 2000 ml Output Urine Total 200 ml Laboratory Tests Test 10/28/18 01:05 10/28/18 05:00 10/28/18 05:20 10/28/18 08:05 White Blood Count 12.1 K/UL (4.8-10.8) H 13.9 K/UL (4.8-10.8) H Red Blood Count 2.86 M/UL (4.20-5.40) L 2.67 M/UL (4.20-5.40) L Hemoglobin 8.4 G/DL (12.0-16.0) L 8.0 G/DL (12.0-16.0) L Hematocrit 26.7 % (37.0-47.0) L 25.2 % (37.0-47.0) L Mean Corpuscular Volume 93 FL (80-99) 94 FL (80-99) Mean Corpuscular Hemoglobin 29.5 PG (27.0-31.0) 29.9 PG (27.0-31.0) Mean Corpuscular Hemoglobin Concent 31.7 G/DL (32.0-36.0) L 31.7 G/DL (32.0-36.0) L Red Cell Distribution Width 18.2 % (11.6-14.8) H 18.6 % (11.6-14.8) H Platelet Count 287 K/UL (150-450) 262 K/UL (150-450) Mean Platelet Volume 6.6 FL (6.5-10.1) 6.3 FL (6.5-10.1) L Neutrophils (%) (Auto) 76.5 % (45.0-75.0) H 82.4 % (45.0-75.0) H Lymphocytes (%) (Auto) 15.3 % (20.0-45.0) L 8.9 % (20.0-45.0) L Monocytes (%) (Auto) 4.6 % (1.0-10.0) 6.0 % (1.0-10.0) Eosinophils (%) (Auto) 3.1 % (0.0-3.0) H 2.4 % (0.0-3.0) Basophils (%) (Auto) 0.4 % (0.0-2.0) 0.2 % (0.0-2.0) Urine Color Pale yellow Urine Appearance Clear Urine pH 7 (4.5-8.0) Urine Specific [place] 1.010 (1.005-1.035) Urine Protein 1+ (NEGATIVE) H Urine Glucose (UA) Negative (NEGATIVE) Urine Ketones Negative (NEGATIVE) Urine Blood Negative (NEGATIVE) Urine Nitrite Negative (NEGATIVE) Urine Bilirubin Negative (NEGATIVE) Urine Urobilinogen 1 MG/DL (0.0-1.0) H Urine Leukocyte Esterase 2+ (NEGATIVE) H Urine RBC 2-4 /HPF (0 - 2) H Urine WBC 30-40 /HPF (0 - 2) H Urine Squamous Epithelial Cells Few /LPF (NONE/OCC) Urine Bacteria Few /HPF (NONE) Urine Yeast Few /HPF (NONE) H Sodium Level 139 MMOL/L (136-145) 141 MMOL/L (136-145) Potassium Level 4.7 MMOL/L (3.5-5.1) 3.8 MMOL/L (3.5-5.1) Chloride Level 98 MMOL/L (98-107) 102 MMOL/L (98-107) Carbon Dioxide Level 36 MMOL/L (21-32) H 34 MMOL/L (21-32) H Anion Gap 6 mmol/L (5-15) 6 mmol/L (5-15) Blood Urea Nitrogen 50 mg/dL (7-18) H 38 mg/dL (7-18) H Creatinine 0.6 MG/DL (0.55-1.30) 0.5 MG/DL (0.55-1.30) L Estimat Glomerular Filtration Rate mL/min (>60) mL/min (>60) Glucose Level 121 MG/DL (74-106) H 97 MG/DL (74-106) Lactic Acid Level 1.90 mmol/L (0.4-2.0) Calcium Level 9.4 MG/DL (8.5-10.1) 8.6 MG/DL (8.5-10.1) Total Bilirubin 0.3 MG/DL (0.2-1.0) Aspartate Amino Transf (AST/SGOT) 80 U/L (15-37) H 69 U/L (15-37) H Alanine Aminotransferase (ALT/SGPT) 39 U/L (12-78) 35 U/L (12-78) Alkaline Phosphatase 181 U/L (46-116) H Total Creatine Kinase 66 U/L (26-308) 42 U/L (26-308) Creatine Kinase MB 1.2 NG/ML (0.0-3.6) Creatine Kinase MB Relative Index 1.8 Troponin I 0.017 ng/mL (0.000-0.056) Total Protein 7.6 G/DL (6.4-8.2) Albumin 1.8 G/DL (3.4-5.0) L Globulin 5.8 g/dL Albumin/Globulin Ratio 0.3 (1.0-2.7) L Vitamin D 25-Hydroxy Pending 25-Hydroxy Vitamin D2 Pending 25-Hydroxy Vitamin D3 Pending Differential Total Cells Counted 100 Neutrophils % (Manual) 77 % (45-75) H Lymphocytes % (Manual) 4 % (20-45) L Monocytes % (Manual) 5 % (1-10) Eosinophils % (Manual) 1 % (0-3) Basophils % (Manual) 0 % (0-2) Band Neutrophils 13 % (0-8) H Platelet Estimate Adequate Platelet Morphology Normal Hypochromasia 1+ Anisocytosis 2+ Erythrocyte Sedimentation Rate 133 MM/HR (0-30) H 133 MM/HR (0-30) H Hemoglobin A1c 5.7 % (4.3-6.0) Reticulocyte Count 1.0 % (0.5-2.0) Prothrombin Time 11.4 SEC (9.30-11.50) Prothromb Time International Ratio 1.1 (0.9-1.1) Activated Partial Thromboplast Time 27 SEC (23-33) Uric Acid 3.9 MG/DL (2.6-7.2) Iron Level 20 ug/dL (50-175) L Total Iron Binding Capacity 174 ug/dL (250-450) L Percent Iron Saturation 11 % (15-50) L Unsaturated Iron Binding 154 ug/dL (112-346) Lactate Dehydrogenase 299 U/L (81-234) H Carcinoembryonic Antigen Pending Vitamin B12 Level 1472 PG/ML (193-986) H Folate 45.4 NG/ML (8.6-58.9) Test 10/28/18 08:46 Urine Color Pale yellow Urine Appearance Clear Urine pH 6 (4.5-8.0) Urine Specific [place] 1.010 (1.005-1.035) Urine Protein 1+ (NEGATIVE) H Urine Glucose (UA) Negative (NEGATIVE) Urine Ketones Negative (NEGATIVE) Urine Blood 1+ (NEGATIVE) H Urine Nitrite Negative (NEGATIVE) Urine Bilirubin Negative (NEGATIVE) Urine Urobilinogen Normal MG/DL (0.0-1.0) Urine Leukocyte Esterase 1+ (NEGATIVE) H Urine RBC 0-2 /HPF (0 - 2) Urine WBC 2-4 /HPF (0 - 2) Urine Squamous Epithelial Cells None /LPF (NONE/OCC) Urine Bacteria None /HPF (NONE) Urine Yeast Occasional /HPF (NONE) H Urine Eosinophils None seen (NONE SEEN) Urine Osmolality 519 mOsm/kg (429-449) H Urine Random Creatinine Pending Urine Random Microalbumin Pending Urine Random Sodium < 20 mmol/L (20-110) L Urine Microalbumin/Creatinine Ratio Pending Microbiology Date/Time Source Procedure Growth Status 10/28/18 01:30 Rectum Received Stephan Kincaid MD Oct 28, 2018 17:54
--- NOTE | 2018-10-28 18:00 | NUR ---
NURSE NOTES: Seen by Dr. Kincaid with new orders.
--- NOTE | 2018-10-28 19:12 | NUR ---
NURSE NOTES: Received patient from Meme GODFREY. Patient is obtunded, receiving oxygen via trach to vent: Portex 7, AC 16, TV 500, FiO2 40%, PEEP 5. G-tube is patent and intact receiving Glucerna 1.2 at 40cc/hr, goal is 65cc/hr. Ellis catheter is patent and draining. IV site is right wrist 18g, patent and asymptomatic. Bed is locked, placed in lowest position, side rails up x3, bed alarm on, call light within reach. Will continue to monitor.
--- NOTE | 2018-10-28 19:22 | NUR ---
HAND-OFF: Report given to Wilfrido RN. Pt. remain stable.
[2018-10-28] MEDS ORDERED: Heparin 5000 units/ml inj IV SCH (19:30)
[2018-10-28] MEDS ORDERED: UTI-STAT L3875 MG/31 GT (19:32)
--- NOTE | 2018-10-28 19:43 | NUR ---
NURSE NOTES: Received new order for Heparin drip from Juliette from Pharmacy, 3500 units IV bolus, new rate of rate 22u/kg/hr.
[2018-10-28] MEDS: Metoprolol Tartrate 50mg tab GT SCH (20:31)
[2018-10-28] MEDS ORDERED: Sennosides 8.6mg tab GT SCH (21:00)
--- NOTE | 2018-10-28 23:30 | Consultation ---
DATE OF CONSULTATION: 10/28/2018 CARDIOLOGY CONSULTATION CONSULTING PHYSICIAN: Stephan Kincaid M.D. REFERRING PHYSICIAN: Che Firas M.D., covering for Dr. Archie Martinez. HISTORY OF PRESENT ILLNESS: The patient is a very unfortunate 72-year-old female, nonverbal, who was brought in by ambulance after nursing staff called 911 due to hypotension with blood pressure of 70/40 mmHg. The patient at the time of arrival to this facility had the blood pressure of 120/76 and pulse of 81. In the emergency department, initially the patient had a rhythm of sinus tachycardia, however, converted to atrial fibrillation with rapid ventricular response at the rate of 146. There were no acute ischemic changes. First troponin I level was negative. Review of the record shows that the patient had been taking furosemide 20 mg daily. PAST MEDICAL HISTORY: 1. Dysphagia, status post PEG placement. 2. History of head and neck cancer, status post tracheostomy tube placement. 3. Ventilatory-drive respiratory failure. 4. Pressure ulcer on the left hip, sacral. 5. Encephalopathy. PAST SURGICAL HISTORY: PEG placement and tracheostomy tube placement. MEDICATIONS: List of medications in the nursing facility: Acetaminophen 650 G-tube q.4 hours p.r.n. temperature above 100.5 and mild pain, ascorbic acid 500 mg G-tube daily, Lipitor 10 mg G-tube at bedtime, vitamin D 5000 unit G-tube daily, Colace 100 mg G-tube daily, Lasix 20 mg G-tube daily, DuoNeb 3 mL HHN q.3 hours p.r.n. shortness of breath, acidophilus 1 capsule G-tube daily, levothyroxine 75 mg G-tube daily, losartan 12.5 mg G-tube daily, milk of magnesia 30 mL G-tube at bedtime p.r.n. constipation, metoprolol 50 mg G-tube q.12 hours, 5 mL G-tube daily, omeprazole 10 mg G-tube daily, Zofran 4 mg intravenous q.4 hours p.r.n. nausea and vomiting, acetate 40 mEq G-tube daily, and senna 17.2 mg G-tube at bedtime. FAMILY HISTORY: No premature coronary artery disease according to the records in the first-degree relatives. SOCIAL HISTORY: No history of tobacco, alcohol, or illicit drug use in the past. REVIEW OF SYSTEMS: The patient is nonverbal. Therefore, cannot provide 12-system review. PHYSICAL EXAMINATION: VITAL SIGNS: At the time of arrival to the hospital, blood pressure was 120/76, respirations 20, pulse of 81, temperature 98.8 degrees Fahrenheit, and O2 saturation was not determined in the emergency department. GENERAL: The patient is a very unfortunate 72-year-old lady, nonverbal with facial asymmetry, protruded tongue, comatose. HEENT: Atraumatic. Bitemporal wasting. Pupils are equal, round, and reactive to light and accommodation. Conjunctiva pallor. NECK: JVP cannot be assessed as the patient in positive respiratory inspiration. CVS: Normal S1 and S2. Regular rate and rhythm. Tachycardic. No murmurs, gallops, or rubs. LUNGS: Clear to auscultation bilaterally. ABDOMEN: Soft, nontender, and nondistended. Positive G-tube in place. EXTREMITIES: posture muscle. No edema. LABORATORY FINDINGS: Sodium 139, potassium 4.7, chloride 98, bicarbonate 36, BUN 15, creatinine 0.6, and glucose 121. Calcium 9.4. Troponin I was 0.017. WBC 12.1, hemoglobin of 8.4, hematocrit of 26.7, and platelet count is 287,000. INR is 1.1. Chest x-ray shows no acute cardiopulmonary disease with hyperexpanded lungs, possible small left pleural effusion and tracheostomy tube in place. ASSESSMENT AND PLAN: The patient is a very unfortunate 72-year-old lady, who is seen in Cardiology consultation on behalf of Dr. Archie Martinez. 1. Paroxysmal atrial fibrillation with rapid ventricular response, could be treated by a combination of hypovolemia, as the patient was on furosemide in the nursing facility, also presence of sepsis, as there is evidence of leukocytosis with left shift and bandemia. The patient is on IV antibiotic. We will administer intravenous fluids. She is off furosemide. We will be more aggressive with doses of metoprolol. I agree with administration of digoxin. I believe that the patient is not a suitable candidate for anticoagulation treatment in view of current anemia. 2. Ventilatory-drive respiratory failure, status post tracheostomy tube placement. 3. Dysphagia, status post PEG placement. 4. Head and neck cancer. 5. Hypothyroidism, on thyroid supplementation. 6. History of hypertension. I would like to thank, Dr. Frias, for allowing me to participate in the care of this patient. Stephan Kincaid M.D. DR: REYNALDO JOB#: [id number] CC: Archie Martinez M.D.
[2018-10-29] VITALS: BP 102/67
[2018-10-29] MEDS: Metoprolol 5mg/5ml Inj IVP PRN ×2 (00:55→06:55)
[2018-10-29] MEDS: Albuterol/Ipratropium 3ml neb HHN SCH ×4 (01:24→20:19)
--- NOTE | 2018-10-29 01:55 | NUR ---
NURSE NOTES: Patient had first ECG conversion to Atrial Flutter, previously all other ECG were Sinus Tachycardia. Dr. Kincaid was notified.
[2018-10-29] MEDS ORDERED: Cefepime HCl 1 GM in D5W 55 ML IVPB SCH (02:00)
--- NOTE | 2018-10-29 02:00 | NUR ---
NURSE NOTES: New ECG reading was received. Patient converted from Atrial Flutter to Sinus Rhythm with PAC's. Dr. Kincaid was notified.
[2018-10-29 02:07] LABS: BASOPHILS % (AUTO) 0.3 % (0.0-2.0); EOSINOPHILS % (AUTO) 0.2 % (0.0-3.0); HEMATOCRIT 25.7 % (37.0-47.0); HEMOGLOBIN 8.2 G/DL (12.0-16.0); LYMPHOCYTES % (AUTO) 10.2 % (20.0-45.0); MEAN CORPUSCULAR VOLUME 92 FL (80-99); MONOCYTES % (AUTO) 5.9 % (1.0-10.0); NEUTROPHILS % (AUTO) 83.3 % (45.0-75.0); PLATELET COUNT 250 K/UL (150-450); RED BLOOD COUNT 2.79 M/UL (4.20-5.40); RED CELL DISTRIBUTION WIDTH 18.3 % (11.6-14.8); WHITE BLOOD COUNT 11.2 K/UL (4.8-10.8)
--- NOTE | 2018-10-29 02:24 | NUR ---
NURSE NOTES: APTT results for 0145 has not been resulted yet. Followed up with Lab, they stated they are still running the APTT test.
[2018-10-29 02:27] LABS: ALANINE AMINOTRANSFERASE 26 U/L (12-78); ALBUMIN 1.4 G/DL (3.4-5.0); ALBUMIN/GLOBULIN RATIO 0.3 (1.0-2.7); ALKALINE PHOSPHATASE 154 U/L (46-116); ANION GAP 5 mmol/L (5-15); ASPARTATE AMINO TRANSFERASE 60 U/L (15-37); BILIRUBIN,TOTAL 0.2 MG/DL (0.2-1.0); BLOOD UREA NITROGEN 25 mg/dL (7-18); CALCIUM 8.9 MG/DL (8.5-10.1); CARBON DIOXIDE 32 MMOL/L (21-32); CHLORIDE 103 MMOL/L (98-107); CREATININE 0.5 MG/DL (0.55-1.30); POTASSIUM 3.5 MMOL/L (3.5-5.1); SODIUM 140 MMOL/L (136-145)
[2018-10-29] MEDS ORDERED: Heparin 5000 units/ml inj IV ONE (03:00)
[2018-10-29] MEDS ORDERED: Heparin 25,000u/D5W 500ml 500 ML IV SCH ×3 (03:00→10:15)
--- NOTE | 2018-10-29 03:00 | NUR ---
NURSE NOTES: New Heparin drip rate is 26u/kg/hr. Timed PTT is ordered.
[2018-10-29 04:00] VITALS: BP 124/70
--- NOTE | 2018-10-29 07:11 | NUR ---
HAND-OFF: Report given to Meme GODFREY.
--- NOTE | 2018-10-29 07:15 | NUR ---
RESPIRATORY NOTE: Received pt on vent settings: AC 16-500ml-40% FiO2-peep 5. Pt is trach dependent with trach Portex cuffed size 7.0. Pt is obtunded, wound noted near stoma and under the chin, covered with gauze. RN Wilfrido and RN Vicente made aware. VS is in normal range. Mansoor rhonchi B/S heard upon auscultation, suctioned moderate amount of thick azul yellow secretions without incidents. Breathing Tx Duoneb given without any adverse reactions. Alarms are set and audible, vent is plugged into the red outlet, ambu bag is at bedside. Vent circuits and sxn tubing are patent and out of the way. No SOB or resp distress noted at this time. Will continue to monitor pt.
--- NOTE | 2018-10-29 07:18 | NUR ---
NURSE NOTES: Received bedside report from Wilfrido RN. Pt. in bed, obtunded. No sign of distress. On mech. vent. AC16/VT500/FiO2 of 40%/PEEP5. No grimacing noted. F/C in placed patent/intact draining yellow colored urine. HOB elevated at all times. On GTF with Glucerna 1.2 at 65cc/hr. Tolerating well. On heparin drip with rate of 26u/kg/hr. Next PTT at 0900. No a/r noted, no bleeding noted. IV site at right wrist 18g. in placed and right AC #24g in placed. Bed in low position, locked. Call light within reach. Will cont. to monitor.
[2018-10-29 08:00] VITALS: BP 127/75
[2018-10-29] MEDS: Docusate 100mg/10ml Liq GT SCH (08:39)
[2018-10-29] MEDS: Acetaminophen 650mg/20.3ml GT PRN (08:40)
[2018-10-29] MEDS: Losartan 25mg tab GT SCH (08:41)
[2018-10-29] MEDS: Lactobacillus-GG tablet GT SCH (08:41)
[2018-10-29] MEDS: Metoprolol Tartrate 50mg tab GT SCH ×2 (08:42→21:18)
[2018-10-29] MEDS: Artificial Tears 1.4% Op Soln BOTH EYES SCH ×3 (08:43→17:11)
--- NOTE | 2018-10-29 09:42 | Consultation ---
History of Present Illness General Date patient seen: Oct 29, 2018 Chief Complaint: Altered Level of Consciousness Reason for Consultation: Sepsis Present Illness HPI Ms. Danielle is a 72 yo female with PMHx of head and neck cancer, S/P trach, vent dependent, Dysphagia s/p PEG and Encephalopathy who was [facility] ED [facility] for hypotension. She is not verbal so history was obtained from the chart. In the ED she was febrile up to 102. Had WBCs of 12. She also had Afib RVR. CXR shows Pneumonitis. She was also noted to have pressures ulcer on her bottom and left face. ID was consulted for Sepsis PMHx/PSHx Head and neck cancer S/P trach Vent dependent Dysphagia s/p PEG Encephalopathy SocHx Lives at a usp FamHx Unable to obtain as patient not verbal Allergies: Coded Allergies: No Known Allergies (Unverified , 10/28/18) Medication History Scheduled Atorvastatin Calcium* (Lipitor*), 10 MG GT BEDTIME, (Reported) Carboxymethyl/Gly/Poly80/Pf (Refresh Optive Advanced Drops), 1 DRP OP TID, ( Reported) Cholecalciferol (Vitamin D3)* (Vitamin D*), 5,000 UNIT GT DAILY, (Reported) Cran/Vitc/Mannose/Inulin/Brom (Uti-Stat Liquid), 30 ML GT BID, (Reported) Docusate Sodium* (Colace*), 100 MG GT DAILY, (Reported) Furosemide* (Lasix*), 20 MG GT DAILY, (Reported) Lactobacillus Acidophilus (Acidophilus), 1 EACH GT DAILY, (Reported) Levothyroxine Sodium* (Levothyroxine Sodium*), 75 MCG GT DAILY, (Reported) Losartan Potassium* (Losartan Potassium*), 12.5 MG GT DAILY, (Reported) Metoprolol Tartrate* (Metoprolol Tartrate*), 50 MG GT EVERY 12 HOURS, (Reported) Omeprazole (Omeprazole), 20 MG GT TWICE A DAY, (Reported) Potassium Bicarbonate/Cit Ac (Effer-K 20 Meq Tablet Eff), 40 MEQ GT DAILY, ( Reported) Sennosides (Senna), 17.2 MG GT QHS, (Reported) Scheduled PRN Acetaminophen* (Acetaminophen 325MG Tablet*), 650 MG GT Q4H PRN for Mild Pain/ Temp > 100.5, (Reported) Magnesium Hydroxide* (Milk Of Magnesia*), 30 ML GT QHS PRN for INEFFECTIVE COLACE, (Reported) Ondansetron* (Zofran*), 4 MG IV Q4HR PRN for Nausea & Vomiting, (Reported) Discontinued Medications Ascorbic Acid* (Vitamin C*), 500 MG GT DAILY, (Reported) Discontinued Reason: Pt stopped taking med Ipratropium/Albuterol Sulfate (DuoNeb 0.5-3(2.5)mg/3ml), 3 ML HHN Q3HR PRN for Shortness of Breath, (Reported) Discontinued Reason: Pt stopped taking med Ipratropium/Albuterol Sulfate (DuoNeb 0.5-3(2.5)mg/3ml), 3 ML HHN Q6HR, ( Reported) Discontinued Reason: Pt stopped taking med Lactobacillus Acidophilus (Acidophilus), 1 EACH PO, (Reported) Discontinued Reason: Pt stopped taking med Multivitamin Liquid* (Multi-Delyn*), 5 ML GT DAILY, (Reported) Discontinued Reason: Pt stopped taking med Omeprazole (Omeprazole), 20 MG GT DAILY, (Reported) Discontinued Reason: Pt stopped taking med Patient History Healthcare decision maker Resuscitation status Full Code Advanced Directive on File Review of Systems ROS Narrative 12 point ROS negative except as noted in the HPI Physical Exam Last 24 Hour Vital Signs Date Time Temp Pulse Resp B/P (MAP) Pulse Ox O2 Delivery O2 Flow Rate FiO2 10/29/18 09:14 107 15 40 10/29/18 09:10 98.2 10/29/18 08:42 116 127/75 10/29/18 08:42 116 10/29/18 08:41 127/75 10/29/18 08:00 Mechanical Ventilator 10/29/18 08:00 102.4 116 16 127/75 (92) 97 10/29/18 08:00 40 10/29/18 07:15 120 19 99 Mechanical Ventilator 40 10/29/18 07:06 118 21 98 Mechanical Ventilator 40 10/29/18 07:05 119 21 40 10/29/18 06:55 145 130/90 10/29/18 05:23 106 18 40 10/29/18 04:00 Mechanical Ventilator 10/29/18 04:00 99.9 110 18 124/70 (88) 98 10/29/18 04:00 40 10/29/18 03:45 108 10/29/18 03:02 101 17 40 10/29/18 01:27 106 16 40 10/29/18 01:26 105 21 100 Mechanical Ventilator 40 10/29/18 01:25 97 10/29/18 01:15 100 20 98 Mechanical Ventilator 40 10/29/18 00:55 145 125/89 10/29/18 00:00 Mechanical Ventilator 10/29/18 00:00 98.4 113 18 102/67 (79) 98 10/28/18 23:36 103 10/28/18 23:30 86 18 40 10/28/18 21:30 100 18 40 10/28/18 20:31 117 134/82 10/28/18 20:00 98.8 118 23 129/80 (96) 98 10/28/18 20:00 Mechanical Ventilator 10/28/18 20:00 40 10/28/18 19:51 118 22 100 Mechanical Ventilator 40 10/28/18 19:39 115 22 100 Mechanical Ventilator 40 10/28/18 19:30 110 19 40 10/28/18 19:13 112 10/28/18 17:24 104 20 40 10/28/18 16:00 Mechanical Ventilator 10/28/18 16:00 40 10/28/18 16:00 100.6 119 24 155/79 (104) 97 10/28/18 15:14 125 10/28/18 15:04 108 22 40 10/28/18 13:17 110 20 40 10/28/18 13:10 112 20 100 Mechanical Ventilator 50.0 40 10/28/18 13:00 110 20 100 Mechanical Ventilator 50.0 40 10/28/18 12:53 135 10/28/18 12:00 98.2 108 16 100/66 (77) 99 10/28/18 12:00 106 10/28/18 11:47 Mechanical Ventilator 10/28/18 11:32 40 10/28/18 10:59 118 16 40 Intake and Output 10/28/18 10/29/18 18:59 06:59 Intake Total 1140 ml 864.206 ml Output Total 700 ml Balance 440 ml 864.206 ml Intake Free Water 350 ml IV Total 450 ml 374.206 ml Tube Feeding 340 ml 490 ml Output Urine Total 700 ml Laboratory Tests Test 10/28/18 18:50 10/29/18 01:45 10/29/18 05:20 Activated Partial Thromboplast Time 39 SEC (23-33) H 50 SEC (23-33) H White Blood Count 11.2 K/UL (4.8-10.8) H Red Blood Count 2.79 M/UL (4.20-5.40) L Hemoglobin 8.2 G/DL (12.0-16.0) L Hematocrit 25.7 % (37.0-47.0) L Mean Corpuscular Volume 92 FL (80-99) Mean Corpuscular Hemoglobin 29.2 PG (27.0-31.0) Mean Corpuscular Hemoglobin Concent 31.8 G/DL (32.0-36.0) L Red Cell Distribution Width 18.3 % (11.6-14.8) H Platelet Count 250 K/UL (150-450) Mean Platelet Volume 6.2 FL (6.5-10.1) L Neutrophils (%) (Auto) 83.3 % (45.0-75.0) H Lymphocytes (%) (Auto) 10.2 % (20.0-45.0) L Monocytes (%) (Auto) 5.9 % (1.0-10.0) Eosinophils (%) (Auto) 0.2 % (0.0-3.0) Basophils (%) (Auto) 0.3 % (0.0-2.0) Sodium Level 140 MMOL/L (136-145) Potassium Level 3.5 MMOL/L (3.5-5.1) Chloride Level 103 MMOL/L (98-107) Carbon Dioxide Level 32 MMOL/L (21-32) Anion Gap 5 mmol/L (5-15) Blood Urea Nitrogen 25 mg/dL (7-18) H Creatinine 0.5 MG/DL (0.55-1.30) L Estimat Glomerular Filtration Rate mL/min (>60) Glucose Level 166 MG/DL (74-106) H Calcium Level 8.9 MG/DL (8.5-10.1) Total Bilirubin 0.2 MG/DL (0.2-1.0) Aspartate Amino Transf (AST/SGOT) 60 U/L (15-37) H Alanine Aminotransferase (ALT/SGPT) 26 U/L (12-78) Alkaline Phosphatase 154 U/L (46-116) H Pro-B-Type Natriuretic Peptide 1467 pg/mL (0-125) H Total Protein 6.6 G/DL (6.4-8.2) Albumin 1.4 G/DL (3.4-5.0) L Globulin 5.2 g/dL Albumin/Globulin Ratio 0.3 (1.0-2.7) L Stool Occult Blood Pending Height (Feet): 5 Height (Inches): 1.00 Weight (Pounds): 96 Medications Current Medications Medications (Trade) Dose Ordered Sig/Reginaldo Route PRN Reason Start Time Stop Time Status Last Admin Dose Admin Acetaminophen (Tylenol) 650 mg Q4H PRN GT Mild Pain/Temp > 100.5 10/28/18 05:00 11/27/18 04:59 10/29/18 08:40 Albuterol/ Ipratropium (Albuterol/ Ipratropium) 3 ml Q3H PRN HHN Shortness of Breath 10/28/18 05:00 11/02/18 04:59 Albuterol/ Ipratropium (Albuterol/ Ipratropium) 3 ml Q6HRT HHN 10/28/18 07:00 11/02/18 06:59 10/29/18 07:06 Artificial Tears (Akwa-Tears) 1 drop TID BOTH EYES 10/28/18 09:00 11/27/18 08:59 10/29/18 08:43 Cefepime HCl 1 gm/ Dextrose 55 ml @ 110 mls/hr Q24H IVPB 10/29/18 02:00 11/05/18 01:59 10/29/18 01:33 Digoxin (Lanoxin) 0.25 mg DAILY ORAL 10/29/18 09:00 11/28/18 08:59 10/29/18 08:42 Docusate Sodium (Colace) 100 mg DAILY GT 10/28/18 09:00 11/27/18 08:59 10/29/18 08:39 Heparin Sodium/ Dextrose 500 ml @ 22.643 mls/ hr ADJUST PER PROTOCOL IV 10/29/18 03:00 11/27/18 19:29 10/29/18 02:54 Lactobacillus Acidophilus (Culturelle) 1 tab DAILY GT 10/28/18 09:00 11/27/18 08:59 10/29/18 08:41 Lansoprazole (Prevacid) 30 mg BID GT 10/28/18 09:00 11/27/18 08:59 10/29/18 08:41 Levofloxacin 150 ml @ 100 mls/hr Q48H IVPB 10/29/18 03:00 11/05/18 02:59 10/29/18 03:22 Levothyroxine Sodium (Synthroid) 75 mcg DAILY@0630 GT 10/28/18 06:30 11/27/18 06:29 10/29/18 06:16 Losartan Potassium (Cozaar) 12.5 mg DAILY GT 10/28/18 09:00 11/27/18 08:59 10/29/18 08:41 Magnesium Hydroxide (Mom) 30 ml HSPRN PRN GT Constipation 10/28/18 05:00 11/27/18 04:59 Metoprolol Tartrate (Lopressor) 5 mg Q1H PRN IVP spb more than 120 10/28/18 12:45 11/27/18 12:44 10/29/18 06:55 Metoprolol Tartrate (Lopressor) 50 mg Q12HR GT 10/28/18 21:00 11/27/18 20:59 10/29/18 08:42 Ondansetron HCl (Zofran) 4 mg Q4H PRN IVP Nausea & Vomiting 10/28/18 05:00 11/27/18 04:59 Objective Narrative Gen: Not responsive, On Vent HEENT: NCAT, MMM, PERRL, left face ulceration, Left ear ulceration NECK: supple, No LAD, No JVD, Trach ( No E/P) LUNGS: CTAB, No W/C, No Accessory muscle use CARDS: RRR, S1, S2, No M/R/G, ABD: Soft, NT, ND, No R/G, + BS, No HSM, No Masses, PED ( No E/P) : Deferred Ext: C/C/E, Pulses 2+ B/L (DP, Rad) NEURO: Not responsive, No spont movements SKIN: Warm/dry, No rashes, Unstagable Decubs Necrotic tissue Assessment/Plan Assessment/Plan: Ms. Danielle is a 72 yo female with PMHx of head and neck cancer, S/P trach, vent dependent, Dysphagia s/p PEG and Encephalopathy who was [facility] ED [facility] 10[facility]18 for hypotension. She is not verbal so history was obtained from the chart. In the ED she was febrile up to 102. Had WBCs of 12. She also had Afib RVR. CXR shows Pneumonitis. She was also noted to have pressures ulcer on her bottom and left face. Sepsis PNA vs Infected ulcers CXR possible Pneumonitis Leukocytosis up to 13 Fever x 1 up to 102 UA (-) Head and neck cancer S/P trach Vent dependent Dysphagia s/p PEG Encephalopathy PLAN - Start Zosyn #1 and Vancomycin #1 - 10/29/18 S/P Cefepime #1 and Levofloxacin - f/u Cultures - wound care - f/u surgery recs for debridement - Monitor CBC and Temps Thank you for this consult. We will continue to follow the patient during this hospitalization. Archie Serrano MD Oct 29, 2018 09:42
[2018-10-29] MEDS ORDERED: Heparin 5000 units/ml inj IV SCH (10:06)
--- NOTE | 2018-10-29 10:48 | NUR ---
RESPIRATORY NOTE: Found pt was cover in thick yellow fluid from mouth to over the trach area. Called RN Vicente to inform pt vomiting.RN Vicente said she saw it and did stop the feeding already. Trach care done, cleaned pt's trach and stoma, changed new trach gauze, suctioned around the stoma to make sure pt not aspirated, cleaned the wound and changed new gauze. Tracheal suctioned moderate amt of thick azul yellow secretions, no indication of aspiration at this time. RN Vicente at bedside. Will continue to monitor pt closely.
--- NOTE | 2018-10-29 11:50 | Surgery Progress Note ---
Surgery Progress Note Subjective Additional Comments no acute events. family (son) at bedside today. labs improved. exam stable. resting comfortable on vent support. Objective Last 24 Hour Vital Signs Date Time Temp Pulse Resp B/P (MAP) Pulse Ox O2 Delivery O2 Flow Rate FiO2 10/29/18 10:48 84 16 40 10/29/18 09:14 107 15 40 10/29/18 09:10 98.2 10/29/18 08:42 116 127/75 10/29/18 08:42 116 10/29/18 08:41 127/75 10/29/18 08:00 Mechanical Ventilator 10/29/18 08:00 102.4 116 16 127/75 (92) 97 10/29/18 08:00 40 10/29/18 07:42 121 10/29/18 07:15 120 19 99 Mechanical Ventilator 40 10/29/18 07:06 118 21 98 Mechanical Ventilator 40 10/29/18 07:05 119 21 40 10/29/18 06:55 145 130/90 10/29/18 05:23 106 18 40 10/29/18 04:00 Mechanical Ventilator 10/29/18 04:00 99.9 110 18 124/70 (88) 98 10/29/18 04:00 40 10/29/18 03:45 108 10/29/18 03:02 101 17 40 10/29/18 01:27 106 16 40 10/29/18 01:26 105 21 100 Mechanical Ventilator 40 10/29/18 01:25 97 10/29/18 01:15 100 20 98 Mechanical Ventilator 40 10/29/18 00:55 145 125/89 10/29/18 00:00 Mechanical Ventilator 10/29/18 00:00 98.4 113 18 102/67 (79) 98 10/28/18 23:36 103 10/28/18 23:30 86 18 40 10/28/18 21:30 100 18 40 10/28/18 20:31 117 134/82 10/28/18 20:00 98.8 118 23 129/80 (96) 98 10/28/18 20:00 Mechanical Ventilator 10/28/18 20:00 40 10/28/18 19:51 118 22 100 Mechanical Ventilator 40 10/28/18 19:39 115 22 100 Mechanical Ventilator 40 10/28/18 19:30 110 19 40 10/28/18 19:13 112 10/28/18 17:24 104 20 40 10/28/18 16:00 Mechanical Ventilator 10/28/18 16:00 40 10/28/18 16:00 100.6 119 24 155/79 (104) 97 10/28/18 15:14 125 10/28/18 15:04 108 22 40 10/28/18 13:17 110 20 40 10/28/18 13:10 112 20 100 Mechanical Ventilator 50.0 40 10/28/18 13:00 110 20 100 Mechanical Ventilator 50.0 40 10/28/18 12:53 135 10/28/18 12:00 98.2 108 16 100/66 (77) 99 10/28/18 12:00 106 I&O Intake and Output 10/28/18 10/29/18 18:59 06:59 Intake Total 1140 ml 864.206 ml Output Total 700 ml Balance 440 ml 864.206 ml Intake Free Water 350 ml IV Total 450 ml 374.206 ml Tube Feeding 340 ml 490 ml Output Urine Total 700 ml Dressing: dry Wound: clean Cardiovascular: RSR Respiratory: decreased breath sounds Abdomen: soft, present bowel sounds, non-distended Extremities: no tenderness, no cyanosis Laboratory Tests Test 10/28/18 18:50 10/29/18 01:45 10/29/18 05:20 10/29/18 09:20 Activated Partial Thromboplast Time 39 SEC (23-33) H 50 SEC (23-33) H 29 SEC (23-33) White Blood Count 11.2 K/UL (4.8-10.8) H Red Blood Count 2.79 M/UL (4.20-5.40) L Hemoglobin 8.2 G/DL (12.0-16.0) L Hematocrit 25.7 % (37.0-47.0) L Mean Corpuscular Volume 92 FL (80-99) Mean Corpuscular Hemoglobin 29.2 PG (27.0-31.0) Mean Corpuscular Hemoglobin Concent 31.8 G/DL (32.0-36.0) L Red Cell Distribution Width 18.3 % (11.6-14.8) H Platelet Count 250 K/UL (150-450) Mean Platelet Volume 6.2 FL (6.5-10.1) L Neutrophils (%) (Auto) 83.3 % (45.0-75.0) H Lymphocytes (%) (Auto) 10.2 % (20.0-45.0) L Monocytes (%) (Auto) 5.9 % (1.0-10.0) Eosinophils (%) (Auto) 0.2 % (0.0-3.0) Basophils (%) (Auto) 0.3 % (0.0-2.0) Sodium Level 140 MMOL/L (136-145) Potassium Level 3.5 MMOL/L (3.5-5.1) Chloride Level 103 MMOL/L (98-107) Carbon Dioxide Level 32 MMOL/L (21-32) Anion Gap 5 mmol/L (5-15) Blood Urea Nitrogen 25 mg/dL (7-18) H Creatinine 0.5 MG/DL (0.55-1.30) L Estimat Glomerular Filtration Rate mL/min (>60) Glucose Level 166 MG/DL (74-106) H Calcium Level 8.9 MG/DL (8.5-10.1) Total Bilirubin 0.2 MG/DL (0.2-1.0) Aspartate Amino Transf (AST/SGOT) 60 U/L (15-37) H Alanine Aminotransferase (ALT/SGPT) 26 U/L (12-78) Alkaline Phosphatase 154 U/L (46-116) H Pro-B-Type Natriuretic Peptide 1467 pg/mL (0-125) H Total Protein 6.6 G/DL (6.4-8.2) Albumin 1.4 G/DL (3.4-5.0) L Globulin 5.2 g/dL Albumin/Globulin Ratio 0.3 (1.0-2.7) L Stool Occult Blood Pending Plan Problems: (1) Sepsis Assessment & Plan: 72 year old female presented with sepsis. hypotension, tachycardic, leukocytosis. 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
--- NOTE | 2018-10-29 11:51 | NUR ---
RD ASSESSMENT & RECOMMENDATIONS SEE CARE ACTIVITY FOR COMPLETE ASSESSMENT DAILY ESTIMATED NEEDS: Needs based on Critical care, wound 45.5kg 25-30 kcals/kg 9960-3797 total kcals 1.25-2 g protein/kg 57-91 g total protein 25-30 mL/kg 0681-6317 total fluid mLs NUTRITION DIAGNOSIS: 1) Increased kcal and pro needs r/t wound healing as evidenced by pt w/ unstageable sacral wound, w/ L ear + L mandible ulcer. 2) Swallowing difficulty r/t respiratory status as evidenced by pt is trach and PEG dep. CURRENT TF: Glucerna 1.2 @65ml/hr x20 hrs + Prostat/ prosource x1 daily ENTERAL NUTRITION RECOMMENDATIONS: Maintain current TF order of Glucerna 1.2 @65ml/hr x20 hrs + PS x1 to provide 1300ml, 1560 kcal, 78g + 11g pro, 1047ml free H2O - Maintain current TF as tolerated, provides 100% est needs - Flush per MD. HOB over 30 degrees. ADDITIONAL RECOMMENDATIONS: 1) Monitor weight daily 2) Wound care: Add DAINA BID Add VIT C 250mg BID Add ZnSO4 220 mg daily x10 days 3) Check lytes daily, replete as needed 4) Hypoglycemics/ niss for glycemic control
[2018-10-29 12:00] VITALS: BP 108/59
[2018-10-29] MEDS ORDERED: Vancomycin 750mg/NS 275ml IVPB SCH ×2 (12:00)
[2018-10-29] MEDS: Vancomycin 750mg/NS 275ml IVPB SCH ×2 (13:43)
--- NOTE | 2018-10-29 14:30 | NUR ---
NURSE NOTES: Seen by Dr. Tran and asked the RN to get consent to family (son) for wound debridement. Will cont. to monitor.
--- NOTE | 2018-10-29 14:30 | Diagnostic Imaging Report ---
Indication: Dyspnea Comparison: 10/28/2018 A single view chest radiograph was obtained. Findings: Increasing interstitial edema demonstrated since the prior study. Heart is enlarged. There is a small left pleural effusion. There is an air-fluid level projected over the retrocardiac region of the left lung base which may be a hiatal hernia. Tracheostomy noted. IMPRESSION: Increasing interstitial edema Left pleural effusion. Probable hiatal hernia
[2018-10-29] MEDS: Piperacillin/Tazobactam 3.375 GM in NS 110 ML IVPB SCH ×2 (14:32→21:14)
--- NOTE | 2018-10-29 15:56 | NUR ---
NURSE NOTES: Seen by Dr. Frias with new orders to stop Heparin drip and ordered Heparin 5000u SQ x [address] Frias if become afib again he might put her on Xarelto or coumadin. Will cont. to monitor.
[2018-10-29 16:00] VITALS: BP 124/77
[2018-10-29] MEDS: Metoclopramide 10mg/2ml Inj IVP SCH (17:11)
--- NOTE | 2018-10-29 19:31 | NUR ---
HAND-OFF: Report given to Christiano GODFREY. Pt. remain stable.
--- NOTE | 2018-10-29 19:32 | NUR ---
NURSE NOTES: Received patient from EPIFANIO Dorman. patient in bed, no signs of acute distress. Patient on vent AC 16, TV 599 Fio2 40% PEEP 5, G-tube feeding running, patient resting with eyes open and tongue slightly out . Bed at its lowest position, call light ion reach and X 3 bed rails up.
[2018-10-29 20:00] VITALS: BP 134/77
[2018-10-29] MEDS: Heparin 5000 units/ml inj SUBQ SCH ×2 (21:00→21:20)
--- NOTE | 2018-10-29 21:53 | NUR ---
NURSE NOTES: Patient vomited a small amount; color and consistency of the tube feeding. Administered anti vomiting medication and tube feeding held. Charge nurse aware. Will continue to monitor.
--- NOTE | 2018-10-29 22:39 | Cardiology Progress Note ---
Assessment/Plan Assessment/Plan 1. Paroxysmal atrial fibrillation, currently in SR. Continue metoprolol and digoxin. 2. Ventilatory-drive respiratory failure, status post tracheostomy tube placement. 3. Dysphagia, status post PEG placement. 4. Head and neck cancer. 5. Hypothyroidism, on thyroid supplementation. 6. History of hypertension. Subjective Subjective Sinus rhythm at rate of 98. Non-verbal. Objective Last 24 Hour Vital Signs Date Time Temp Pulse Resp B/P (MAP) Pulse Ox O2 Delivery O2 Flow Rate FiO2 10/29/18 21:42 98 16 40 10/29/18 21:18 97 134/77 10/29/18 20:37 97 16 100 Mechanical Ventilator 40 10/29/18 20:20 84 16 40 10/29/18 20:19 80 16 99 Mechanical Ventilator 40 10/29/18 20:00 Mechanical Ventilator 10/29/18 20:00 40 10/29/18 20:00 97.9 97 22 134/77 (96) 100 10/29/18 19:47 93 10/29/18 17:07 90 16 40 10/29/18 16:00 Mechanical Ventilator 10/29/18 16:00 40 10/29/18 16:00 97.2 88 24 124/77 (93) 100 10/29/18 15:27 88 10/29/18 15:24 85 16 40 10/29/18 13:22 85 16 100 Mechanical Ventilator 40 10/29/18 13:13 86 16 100 Mechanical Ventilator 40 10/29/18 13:12 83 16 40 10/29/18 12:00 97.9 81 16 108/59 (75) 99 10/29/18 12:00 40 10/29/18 12:00 Mechanical Ventilator 10/29/18 11:31 88 10/29/18 10:48 84 16 40 10/29/18 09:14 107 15 40 10/29/18 09:10 98.2 10/29/18 08:42 116 127/75 10/29/18 08:42 116 10/29/18 08:41 127/75 10/29/18 08:00 Mechanical Ventilator 10/29/18 08:00 102.4 116 16 127/75 (92) 97 10/29/18 08:00 40 10/29/18 07:42 121 10/29/18 07:15 120 19 99 Mechanical Ventilator 40 10/29/18 07:06 118 21 98 Mechanical Ventilator 40 10/29/18 07:05 119 21 40 10/29/18 06:55 145 130/90 10/29/18 05:23 106 18 40 10/29/18 04:00 Mechanical Ventilator 10/29/18 04:00 99.9 110 18 124/70 (88) 98 10/29/18 04:00 40 10/29/18 03:45 108 10/29/18 03:02 101 17 40 10/29/18 01:27 106 16 40 10/29/18 01:26 105 21 100 Mechanical Ventilator 40 10/29/18 01:25 97 10/29/18 01:15 100 20 98 Mechanical Ventilator 40 10/29/18 00:55 145 125/89 10/29/18 00:00 Mechanical Ventilator 10/29/18 00:00 98.4 113 18 102/67 (79) 98 10/28/18 23:36 103 10/28/18 23:30 86 18 40 Intake and Output 10/28/18 10/29/18 19:00 07:00 Intake Total 1180 ml 824.206 ml Output Total 700 ml Balance 480 ml 824.206 ml Intake Free Water 350 ml IV Total 450 ml 374.206 ml Tube Feeding 380 ml 450 ml Output Urine Total 700 ml 2D Echo: LVEF 60%, Mild LVH, RADHA 1.9 cm2, Mod AR, RVSP 50 mmHg, Mild MR, Pleural Eff Laboratory Tests Test 10/29/18 01:45 10/29/18 05:20 10/29/18 09:20 White Blood Count 11.2 K/UL (4.8-10.8) H Red Blood Count 2.79 M/UL (4.20-5.40) L Hemoglobin 8.2 G/DL (12.0-16.0) L Hematocrit 25.7 % (37.0-47.0) L Mean Corpuscular Volume 92 FL (80-99) Mean Corpuscular Hemoglobin 29.2 PG (27.0-31.0) Mean Corpuscular Hemoglobin Concent 31.8 G/DL (32.0-36.0) L Red Cell Distribution Width 18.3 % (11.6-14.8) H Platelet Count 250 K/UL (150-450) Mean Platelet Volume 6.2 FL (6.5-10.1) L Neutrophils (%) (Auto) 83.3 % (45.0-75.0) H Lymphocytes (%) (Auto) 10.2 % (20.0-45.0) L Monocytes (%) (Auto) 5.9 % (1.0-10.0) Eosinophils (%) (Auto) 0.2 % (0.0-3.0) Basophils (%) (Auto) 0.3 % (0.0-2.0) Activated Partial Thromboplast Time 50 SEC (23-33) H 29 SEC (23-33) Sodium Level 140 MMOL/L (136-145) Potassium Level 3.5 MMOL/L (3.5-5.1) Chloride Level 103 MMOL/L (98-107) Carbon Dioxide Level 32 MMOL/L (21-32) Anion Gap 5 mmol/L (5-15) Blood Urea Nitrogen 25 mg/dL (7-18) H Creatinine 0.5 MG/DL (0.55-1.30) L Estimat Glomerular Filtration Rate mL/min (>60) Glucose Level 166 MG/DL (74-106) H Calcium Level 8.9 MG/DL (8.5-10.1) Total Bilirubin 0.2 MG/DL (0.2-1.0) Aspartate Amino Transf (AST/SGOT) 60 U/L (15-37) H Alanine Aminotransferase (ALT/SGPT) 26 U/L (12-78) Alkaline Phosphatase 154 U/L (46-116) H Pro-B-Type Natriuretic Peptide 1467 pg/mL (0-125) H Total Protein 6.6 G/DL (6.4-8.2) Albumin 1.4 G/DL (3.4-5.0) L Globulin 5.2 g/dL Albumin/Globulin Ratio 0.3 (1.0-2.7) L Stool Occult Blood Pending Microbiology Date/Time Source Procedure Growth Status 10/28/18 01:05 Blood Blood Culture - Preliminary NO GROWTH AFTER 24 HOURS Resulted 10/28/18 00:50 Blood Blood Culture - Preliminary NO GROWTH AFTER 24 HOURS Resulted 10/28/18 01:05 Urine,Clean Catch Urine Culture - Preliminary Yeast Species Resulted 10/28/18 01:30 Rectum Received Objective HEENT: Atraumatic. Bitemporal wasting. Pupils are equal, round, and reactive to light and accommodation. Conjunctiva pallor. NECK: JVP cannot be assessed as the patient in positive respiratory inspiration. CVS: Normal S1 and S2. Regular rate and rhythm. Tachycardic. No murmurs, gallops, or rubs. LUNGS: Clear to auscultation bilaterally. ABDOMEN: Soft, nontender, and nondistended. Positive G-tube in place. EXTREMITIES: Decerebrate posture, wasted lower extremity muscles. No edema. Stephan Kincaid MD Oct 29, 2018 22:39
[2018-10-30] VITALS: BP 109/68
[2018-10-30] MEDS: Metoclopramide 10mg/2ml Inj IVP SCH ×5 (00:55→23:03)
[2018-10-30] MEDS: Albuterol/Ipratropium 3ml neb HHN SCH ×4 (01:15→18:56)
--- NOTE | 2018-10-30 02:15 | History and Physical Report ---
DATE OF ADMISSION: 10/28/2018 HISTORY OF PRESENT ILLNESS: The patient is a 72-year-old resident of [facility] subacute unit that was transferred to [facility] ER after sudden onset of altered mental status, nonresponsiveness, fever, tachycardia, and pulmonary congestion. She was assessed at [facility] ER and was found to have bilateral pneumonia and UTI and was admitted. PAST MEDICAL HISTORY: Several months ago, the patient underwent sudden onset of cardiac arrest. She developed respiratory failure, had to be intubated and placed on mechanical ventilation. During this time, the patient developed anoxic encephalopathy. She was unable to be weaned. She underwent tracheostomy and gastrostomy and referred to subacute unit. Clinically, she is known to have high blood pressure; congestive heart failure, stage II; COPD; intermittent atrial fibrillation; hypothyroidism; and gastroesophageal reflux disease. ALLERGIES: No known drug allergies. MEDICATIONS: The patient was on Lasix 20 mg daily, which was discontinued. She was on inhalation therapy of ipratropium bromide and albuterol sulfate q.4 h. p.r.n. and she was on levothyroxine 75 mcg daily. She is on losartan 12.5 mg daily; metoprolol tartrate 50 mg q.12 h.; and omeprazole 20 mg daily, note, replaced pantoprazole prior to that. FAMILY HISTORY: Noncontributory. SOCIAL HISTORY: She is a . She was born in [place]. She has been in [place] for many years. 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 HABITS: The patient does not smoke, drink, or use illicit drugs. REVIEW OF SYSTEMS: The patient did not reveal any information regarding her state of health. PHYSICAL EXAMINATION: VITAL SIGNS: Blood pressure was 108/59, pulse was 116, respirations 15, and temperature of 102.4 degrees. HEENT: Eyes were normal. Pupils were round, equal, and reacting to light. Extraocular movements could not be assessed. Temporal arteries were palpable bilaterally. There was bilateral temporal wasting. Visual reddy to confrontation. Neglect sign could not be assessed. ENT, mucous membranes were dehydrated. Auditory canals were clear and tympanic membranes could not be visualized. Nasal cavity was not congested. Nasal septum was intact. Pharynx, larynx, and uvula could not be visualized. Tongue was protruded, midline, and normally papillated. NECK: Supple. There was no goiter. No mass. No lymphadenopathy. There was no JVD. No bruits. Carotid upstroke was 2+. LUNGS: There were bilateral rhonchi in both bases. HEART: PMI was in fifth left intercostal space in midclavicular line. There was normal S1 and normal S2. There was no murmur. No arrhythmia. No S3. No S4. No pericardial rub. Heart sounds mimic atrial fibrillation with rapid ventricular response. ABDOMEN: Soft and nontender without organomegaly. There were no masses palpable. Normal bowel sounds without bruits. There was no guarding. No rebound tenderness. No ascites. No hernia. No CVA tenderness. Liver span was 8 cm, mostly nontender. Gastrostomy site is clean. EXTREMITIES: No cyanosis, no clubbing, and no edema. Extremities were warm. There was bilateral extension contracture of both feet. NEUROLOGICAL: Reflexes in biceps, triceps, and brachioradialis were difficult to obtain. Patellar was present. Plantar could not be obtained. Plantars were indifferent bilaterally. Cranial nerves II through XII were symmetric and equal except tongue was protruded. Cerebellar function, there was no tremor. No nystagmus. No extrapyramidal rigidity. Sensory exam to pinprick, cotton touch, position, and motor strength could not be assessed appropriately because of the patient's clinical status. LABORATORY AND DIAGNOSTIC DATA: Her hemoglobin was 8.8, hematocrit 25.2 with MCV of 94, WBC of 17.9, and platelets are 262,000. Her BUN and creatinine are 38 and 0.5 respectively. Her sodium is 141, potassium 3.8, chloride 102, CO2 is 34, and iron was 20. Her total iron-binding capacity is 174 and O2 saturation was 11. SGOT was 69 and SGPT was 35. LDH was 299. B12 was 1472. Folate is 45.4. Total CK was 42. ProBNP was 1467. Albumin was 1.4. Total protein was 6.6. Urinalysis show 1+ negative nitrite and negative leukocyte esterase. . Her chest x-ray revealed pulmonary interstitial marking with cardiomegaly and bilateral pneumonia with small left pleural effusion. PLAN: The patient is currently on gentamicin, tazobactam 3.375 g IV piggyback q.6. h., IV vancomycin, Zosyn IV piggyback q.12. h., and levofloxacin 750 mg IV piggyback q.48. h. The patient was placed on heparin drip and Cardiology consult. Pulmonary insurance consultant was called to assist in the management of this case. Cardiology consult was called to assist the patient because of the cardiac arrhythmia. Repeat laboratory tests will be done in the a.m. Che Frias M.D. DR: Yuri JOB#: [id number] CC:
[2018-10-30 04:00] VITALS: BP 140/88
[2018-10-30] MEDS: Piperacillin/Tazobactam 3.375 GM in NS 110 ML IVPB SCH ×3 (06:27→21:00)
--- NOTE | 2018-10-30 07:00 | NUR ---
RESPIRATORY NOTES: Received patient on ventilator settings of ACVC RR 16, VT 500, FIO2 40%, PEEP +5. Patient trached with a Portex 7 tracheostomy tube, secured with trach ties. Bilateral rhonchi breath sounds noted. Suction minimal amounts of thin white clear secretions through trach. Vent plugged into red outlet. Alarms are on and audible. Will continue to closely monitor throughout the day.
--- NOTE | 2018-10-30 07:29 | NUR ---
HAND-OFF: Report given to Roberth GODFREY.
--- NOTE | 2018-10-30 07:31 | NUR ---
NURSE NOTES: Received report from EPIFANIO Alvarado. Patient is resting in bed, instable condition. No s/sx of SOB, breathing is even and unlabored, Vent settings are as ordered. Observed no presence of pain or discomfort at this time. Bed is in lowest position, brakes engaged. Call light is kept within easy reach. Will continue to monitor patient.
[2018-10-30 08:00] VITALS: BP 133/85
[2018-10-30] MEDS: Docusate 100mg/10ml Liq GT SCH (08:24)
[2018-10-30] MEDS: Lactobacillus-GG tablet GT SCH (08:24)
[2018-10-30] MEDS: Losartan 25mg tab GT SCH (08:24)
[2018-10-30] MEDS: Acetaminophen 650mg/20.3ml GT PRN ×2 (08:25→18:07)
[2018-10-30] MEDS: Metoprolol Tartrate 50mg tab GT SCH ×2 (08:25→20:09)
[2018-10-30] MEDS: Artificial Tears 1.4% Op Soln BOTH EYES SCH ×3 (08:26→17:20)
[2018-10-30] MEDS: Heparin 5000 units/ml inj SUBQ SCH ×2 (08:32→20:13)
--- NOTE | 2018-10-30 10:41 | Pulmonolgy Critical Care Note ---
Critical Care - Asmt/Plan Problems: (1) Respiratory failure, acute and chronic (2) HCAP (healthcare-associated pneumonia) (3) Sepsis (4) ATN (acute tubular necrosis) (5) Atrial fibrillation (6) Anemia, chronic disease (7) Hypothyroidism (8) Neoplasm of esophagus, malignant (9) History of CHF (congestive heart failure) (10) Decubitus skin ulcer (11) History of sudden cardiac arrest Respiratory: monitor respiratory rate, adjust FIO2, CXR Cardiac: continue to monitor HR/BP Renal: F/U I&O, check electrolytes Infectious Disease: check cultures, continue antibiotics Gastrointestinal: continue feedings/current rate Endocrine: monitor blood sugar, check HgA1C Neurologic: PRN Morphine, keep patient comfortable Prophylaxis: Protonix Discussed with: nurses, case monitortechnology services manager - Objective Last 24 Hour Vital Signs Date Time Temp Pulse Resp B/P (MAP) Pulse Ox O2 Delivery O2 Flow Rate FiO2 10/30/18 08:55 99.1 10/30/18 08:48 102 18 40 10/30/18 08:25 110 133/85 10/30/18 08:24 110 10/30/18 08:24 133/85 10/30/18 08:00 100.5 110 22 133/85 (101) 98 10/30/18 08:00 40 10/30/18 08:00 Mechanical Ventilator 10/30/18 08:00 111 10/30/18 07:34 102 16 98 Mechanical Ventilator 40 10/30/18 07:30 102 16 97 Mechanical Ventilator 40 10/30/18 07:29 102 16 40 10/30/18 05:06 104 18 40 10/30/18 04:00 40 10/30/18 04:00 113 10/30/18 04:00 Mechanical Ventilator 10/30/18 04:00 97.9 100 22 140/88 (105) 99 10/30/18 03:39 104 16 40 10/30/18 01:25 98 16 100 Mechanical Ventilator 40 10/30/18 01:15 85 16 40 10/30/18 01:15 85 16 100 Mechanical Ventilator 40 10/30/18 00:00 97.8 83 20 109/68 (82) 100 10/30/18 00:00 Mechanical Ventilator 10/29/18 23:26 87 10/29/18 23:15 99 16 40 10/29/18 21:42 98 16 40 10/29/18 21:18 97 134/77 10/29/18 20:37 97 16 100 Mechanical Ventilator 40 10/29/18 20:20 84 16 40 10/29/18 20:19 80 16 99 Mechanical Ventilator 40 10/29/18 20:00 Mechanical Ventilator 10/29/18 20:00 40 10/29/18 20:00 97.9 97 22 134/77 (96) 100 10/29/18 19:47 93 10/29/18 17:07 90 16 40 10/29/18 16:00 Mechanical Ventilator 10/29/18 16:00 40 10/29/18 16:00 97.2 88 24 124/77 (93) 100 10/29/18 15:27 88 10/29/18 15:24 85 16 40 10/29/18 13:22 85 16 100 Mechanical Ventilator 40 10/29/18 13:13 86 16 100 Mechanical Ventilator 40 10/29/18 13:12 83 16 40 10/29/18 12:00 97.9 81 16 108/59 (75) 99 10/29/18 12:00 40 10/29/18 12:00 Mechanical Ventilator 10/29/18 11:31 88 10/29/18 10:48 84 16 40 Status: obtunded Condition: critical Neck: full ROM, trach Lungs: clear Heart: HR/BP stable Abdomen: soft, non-tender, active bowel sounds Extremities: no C/C/E Micro: Microbiology Date/Time Source Procedure Growth Status 10/28/18 01:05 Blood Blood Culture - Preliminary NO GROWTH AFTER 48 HOURS Resulted 10/28/18 00:50 Blood Blood Culture - Preliminary NO GROWTH AFTER 48 HOURS Resulted 10/28/18 01:30 Nasal Nares MRSA Culture - Final NO METHICILLIN RESISTANT STAPH AUREUS... 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 Complete 10/28/18 01:30 Rectum Received Accucheck: 139 Critical Care - Subjective ROS Limited/Unobtainable: Yes Condition: critical EKG Rhythm: Sinus Rhythm FI02: 40 Vent Support Breath Rate: 16 Vent Support Mode: AC Vent Tidal Volume: 500 Sputum Amount: Small PEEP: 5.0 PIP: 39 Tube Feeding Amount: 40 I&O: Intake and Output 10/29/18 10/30/18 19:00 07:00 Intake Total 220 ml 110.00 ml Output Total 450 ml 400 ml Balance -230 ml -290.00 ml Intake Free Water 50 ml IV Total 110.00 ml Tube Feeding 170 ml Output Urine Total 450 ml 400 ml # Bowel Movements 4 1 CXR: pulmonary edema, left effusion Belem Brooke MD Oct 30, 2018 10:41
--- NOTE | 2018-10-30 11:07 | Surgery Progress Note ---
Surgery Progress Note Subjective Additional Comments no acute events son consented to debridement of sacral wound exam otherwise stable. Objective Last 24 Hour Vital Signs Date Time Temp Pulse Resp B/P (MAP) Pulse Ox O2 Delivery O2 Flow Rate FiO2 10/30/18 10:56 96 30 40 10/30/18 08:55 99.1 10/30/18 08:48 102 18 40 10/30/18 08:25 110 133/85 10/30/18 08:24 110 10/30/18 08:24 133/85 10/30/18 08:00 100.5 110 22 133/85 (101) 98 10/30/18 08:00 40 10/30/18 08:00 Mechanical Ventilator 10/30/18 08:00 111 10/30/18 07:34 102 16 98 Mechanical Ventilator 40 10/30/18 07:30 102 16 97 Mechanical Ventilator 40 10/30/18 07:29 102 16 40 10/30/18 05:06 104 18 40 10/30/18 04:00 40 10/30/18 04:00 113 10/30/18 04:00 Mechanical Ventilator 10/30/18 04:00 97.9 100 22 140/88 (105) 99 10/30/18 03:39 104 16 40 10/30/18 01:25 98 16 100 Mechanical Ventilator 40 10/30/18 01:15 85 16 40 10/30/18 01:15 85 16 100 Mechanical Ventilator 40 10/30/18 00:00 97.8 83 20 109/68 (82) 100 10/30/18 00:00 Mechanical Ventilator 10/29/18 23:26 87 10/29/18 23:15 99 16 40 10/29/18 21:42 98 16 40 10/29/18 21:18 97 134/77 10/29/18 20:37 97 16 100 Mechanical Ventilator 40 10/29/18 20:20 84 16 40 10/29/18 20:19 80 16 99 Mechanical Ventilator 40 10/29/18 20:00 Mechanical Ventilator 10/29/18 20:00 40 10/29/18 20:00 97.9 97 22 134/77 (96) 100 10/29/18 19:47 93 10/29/18 17:07 90 16 40 10/29/18 16:00 Mechanical Ventilator 10/29/18 16:00 40 10/29/18 16:00 97.2 88 24 124/77 (93) 100 10/29/18 15:27 88 10/29/18 15:24 85 16 40 10/29/18 13:22 85 16 100 Mechanical Ventilator 40 10/29/18 13:13 86 16 100 Mechanical Ventilator 40 10/29/18 13:12 83 16 40 10/29/18 12:00 97.9 81 16 108/59 (75) 99 10/29/18 12:00 40 10/29/18 12:00 Mechanical Ventilator 10/29/18 11:31 88 I&O Intake and Output 10/29/18 10/30/18 19:00 07:00 Intake Total 220 ml 110.00 ml Output Total 450 ml 400 ml Balance -230 ml -290.00 ml Intake Free Water 50 ml IV Total 110.00 ml Tube Feeding 170 ml Output Urine Total 450 ml 400 ml # Bowel Movements 4 1 Dressing: saturated Wound: other Drains: other Cardiovascular: RSR Respiratory: decreased breath sounds Abdomen: soft, present bowel sounds, other, non-distended Extremities: no cyanosis Plan Problems: (1) Sepsis Assessment & Plan: 72 year old female presented with sepsis. hypotension, tachycardic, leukocytosis. currently in [facility] under good care labs improving on iv abx responding to fluids cont with current care trend labs will follow with recs (2) ATN (acute tubular necrosis) (3) Respiratory failure, acute and chronic (4) Anemia, chronic disease (5) Dehydration Assessment & Plan: DAILY ESTIMATED NEEDS: Needs based on Critical care, wound 45.5kg 25-30 kcals/kg 7568-7852 total kcals 1.25-2 g protein/kg 57-91 g total protein 25-30 mL/kg 9441-8605 total fluid mLs NUTRITION DIAGNOSIS: 1) Increased kcal and pro needs r/t wound healing as evidenced by pt w/ unstageable sacral wound, w/ L ear + L mandible ulcer. 2) Swallowing difficulty r/t respiratory status as evidenced by pt is trach and PEG dep. CURRENT TF: Glucerna 1.2 @65ml/hr x20 hrs + Prostat/ prosource x1 daily ENTERAL NUTRITION RECOMMENDATIONS: Maintain current TF order of Glucerna 1.2 @65ml/hr x20 hrs + PS x1 to provide 1300ml, 1560 kcal, 78g + 11g pro, 1047ml free H2O - Maintain current TF as tolerated, provides 100% est needs - Flush per MD. HOB over 30 degrees. ADDITIONAL RECOMMENDATIONS: 1) Monitor weight daily 2) Wound care: Add DAINA BID Add VIT C 250mg BID Add ZnSO4 220 mg daily x10 days 3) Check lytes daily, replete as needed 4) Hypoglycemics/ niss for glycemic control (6) UTI (urinary tract infection) (7) HCAP (healthcare-associated pneumonia) (8) PRESSURE WOUND (9) History of sudden cardiac arrest (10) Neoplasm of esophagus, malignant (11) Acute and chronic respiratory failure (12) Hypothyroidism (13) History of CHF (congestive heart failure) (14) Decubitus skin ulcer Assessment & Plan: Patient presented with multiple decubitus ulcers unstageable large sacral decubitus - will need debridement left ear and left mandible with skin tears and pressure ulcers - spoke with son obtained consent for debridement of sacral wound will schedule soon Emory Tran Oct 30, 2018 11:07
[2018-10-30 12:00] VITALS: BP 138/98
--- NOTE | 2018-10-30 12:20 | Brief Operative Note ---
Immediate Post Operative Note Operative Note Pre-op Diagnosis: large unstageable sacral decubitus ulcer Procedure: excisional debridement of sacral decubitus ulcer Post-op Diagnosis: stage 4 sacral decubitus ulcer Surgeon: helga aguilera md Specimen: none Complications: none Condition: stable Fluids: n/a Estimated Blood Loss: minimal Drains: none Implant(s) used?: Emory Goel Oct 30, 2018 12:20
--- NOTE | 2018-10-30 14:07 | Diagnostic Imaging Report ---
Indication: Abnormal renal function tests Technique: Grayscale and duplex images of the kidneys, retroperitoneum, and bladder were obtained. Comparison: none Findings: Right kidney measures 9.9 cm in length. Left kidney measures 11.3 cm in length. Both kidneys demonstrate normal echogenicity. No hydronephrosis. No focal abnormality. Normal inferior vena cava. The bladder contains a Ellis catheter. There is retained urine, calculated volume of approximately 90 mL, despite the presence of a Ellis catheter.. Impression: Negative for hydronephrosis. Small amount retained urine, despite the presence and satisfactory position of a Ellis catheter.
[2018-10-30] MEDS: Vancomycin 750mg/NS 275ml IVPB SCH ×2 (15:00)
--- NOTE | 2018-10-30 15:32 | NUR ---
NURSE NOTES:WOUND CARE NOTES: Pt presented on admission with Unstageable pressure injury sacrum. Excisional debridement done at bedside by . Pt tolerated procedure. Pt also noted to have wound L of tracheostomy. Base of wound viable. Dry necrosis L earlobe. both heels are pink and blanchable.
[2018-10-30 16:00] VITALS: BP 149/94
[2018-10-30] MEDS: Ascorbic Acid 500mg tab ORAL SCH (17:20)
--- NOTE | 2018-10-30 18:08 | Infectious Diseases Prog Note ---
Assessment/Plan Assessment/Plan Assessment/Plan: Ms. Danielle is a 72 yo female with PMHx of head and neck cancer, S/P trach, vent dependent, Dysphagia s/p PEG and Encephalopathy who was sent to the ED from her [facility] on 10/28/18 for hypotension. She is not verbal so history was obtained from the chart. In the ED she was febrile up to 102. Had WBCs of 12. She also had Afib RVR. CXR shows Pneumonitis. She was also noted to have pressures ulcer on her bottom and left face. Sepsis PNA vs Infected ulcers CXR possible Pneumonitis Leukocytosis up to 13; improving Fever up to 102; improving UA (-); ucx yeast sp Bcx NTD Head and neck cancer S/P trach Vent dependent Dysphagia s/p PEG Encephalopathy PLAN - Start Zosyn #2 and Vancomycin #2 - 10/29/18 S/P Cefepime #1 and Levofloxacin - f/u Cultures - wound care - f/u surgery recs for debridement - Monitor CBC and Temps -sp cx Thank you for this consult. We will continue to follow the patient during this hospitalization. Subjective Allergies: Coded Allergies: No Known Allergies (Unverified , 10/28/18) Objective Vital Signs Last 24 Hour Vital Signs Date Time Temp Pulse Resp B/P (MAP) Pulse Ox O2 Delivery O2 Flow Rate FiO2 10/30/18 17:20 92 16 40 10/30/18 16:00 Mechanical Ventilator 10/30/18 16:00 40 10/30/18 15:17 91 16 40 10/30/18 13:31 98 19 99 Mechanical Ventilator 40 10/30/18 13:20 98 19 100 Mechanical Ventilator 40 10/30/18 13:20 98 19 40 10/30/18 12:00 40 10/30/18 12:00 Mechanical Ventilator 10/30/18 10:56 96 30 40 10/30/18 08:55 99.1 10/30/18 08:48 102 18 40 10/30/18 08:25 110 133/85 10/30/18 08:24 110 10/30/18 08:24 133/85 10/30/18 08:00 100.5 110 22 133/85 (101) 98 10/30/18 08:00 40 10/30/18 08:00 Mechanical Ventilator 10/30/18 08:00 111 10/30/18 07:34 102 16 98 Mechanical Ventilator 40 10/30/18 07:30 102 16 97 Mechanical Ventilator 40 10/30/18 07:29 102 16 40 10/30/18 05:06 104 18 40 10/30/18 04:00 40 10/30/18 04:00 113 10/30/18 04:00 Mechanical Ventilator 10/30/18 04:00 97.9 100 22 140/88 (105) 99 10/30/18 03:39 104 16 40 10/30/18 01:25 98 16 100 Mechanical Ventilator 40 10/30/18 01:15 85 16 40 10/30/18 01:15 85 16 100 Mechanical Ventilator 40 10/30/18 00:00 97.8 83 20 109/68 (82) 100 10/30/18 00:00 Mechanical Ventilator 10/29/18 23:26 87 10/29/18 23:15 99 16 40 10/29/18 21:42 98 16 40 10/29/18 21:18 97 134/77 10/29/18 20:37 97 16 100 Mechanical Ventilator 40 10/29/18 20:20 84 16 40 10/29/18 20:19 80 16 99 Mechanical Ventilator 40 10/29/18 20:00 Mechanical Ventilator 10/29/18 20:00 40 10/29/18 20:00 97.9 97 22 134/77 (96) 100 10/29/18 19:47 93 Height (Feet): 5 Height (Inches): 1.00 Weight (Pounds): 96 Objective Objective Narrative Gen: Not responsive, On Vent HEENT: NCAT, MMM, PERRL, left face ulceration, Left ear ulceration NECK: supple, No LAD, No JVD, Trach ( No E/P) LUNGS: CTAB, No W/C, No Accessory muscle use CARDS: RRR, S1, S2, No M/R/G, ABD: Soft, NT, ND, No R/G, + BS, No HSM, No Masses, PED ( No E/P) : Deferred Ext: C/C/E, Pulses 2+ B/L (DP, Rad) NEURO: Not responsive, No spont movements SKIN: Warm/dry, No rashes, Unstagable Decubs Necrotic tissue Microbiology Date/Time Source Procedure Growth Status 10/28/18 01:05 Blood Blood Culture - Preliminary NO GROWTH AFTER 48 HOURS Resulted 10/28/18 00:50 Blood Blood Culture - Preliminary NO GROWTH AFTER 48 HOURS Resulted 10/28/18 01:30 Nasal Nares MRSA Culture - Final NO METHICILLIN RESISTANT STAPH AUREUS... 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 Complete 10/28/18 01:30 Rectum Received Current Medications Medications (Trade) Dose Ordered Sig/Reginaldo Route PRN Reason Start Time Stop Time Status Last Admin Dose Admin Acetaminophen (Tylenol) 650 mg Q4H PRN GT Mild Pain/Temp > 100.5 10/28/18 05:00 11/27/18 04:59 10/30/18 08:25 Albuterol/ Ipratropium (Albuterol/ Ipratropium) 3 ml Q3H PRN N Shortness of Breath 10/28/18 05:00 11/02/18 04:59 Albuterol/ Ipratropium (Albuterol/ Ipratropium) 3 ml Q6HRT HHN 10/28/18 07:00 11/02/18 06:59 10/30/18 13:30 Artificial Tears (Akwa-Tears) 1 drop TID BOTH EYES 10/28/18 09:00 11/27/18 08:59 10/30/18 17:20 Ascorbic Acid (Vitamin C) 250 mg TWICE A DAY ORAL 10/30/18 18:00 11/29/18 17:59 10/30/18 17:20 Digoxin (Lanoxin) 0.25 mg DAILY ORAL 10/29/18 09:00 11/28/18 08:59 10/30/18 08:24 Docusate Sodium (Colace) 100 mg DAILY GT 10/28/18 09:00 11/27/18 08:59 10/30/18 08:24 Heparin Sodium (Porcine) (Heparin 5000 units/ml) 5,000 units EVERY 12 HOURS SUBQ 10/29/18 21:00 10/31/18 09:00 Lactobacillus Acidophilus (Culturelle) 1 tab DAILY GT 10/28/18 09:00 11/27/18 08:59 10/30/18 08:24 Lansoprazole (Prevacid) 30 mg BID GT 10/28/18 09:00 11/27/18 08:59 10/30/18 17:20 Levothyroxine Sodium (Synthroid) 75 mcg DAILY@0630 GT 10/28/18 06:30 11/27/18 06:29 10/30/18 06:27 Losartan Potassium (Cozaar) 12.5 mg DAILY GT 10/28/18 09:00 11/27/18 08:59 10/30/18 08:24 Magnesium Hydroxide (Mom) 30 ml HSPRN PRN GT Constipation 10/28/18 05:00 11/27/18 04:59 Metoclopramide HCl (Reglan) 10 mg Q6HR IVP 10/29/18 16:21 11/28/18 16:20 10/30/18 17:20 Metoprolol Tartrate (Lopressor) 5 mg Q1H PRN IVP spb more than 120 10/28/18 12:45 11/27/18 12:44 10/29/18 06:55 Metoprolol Tartrate (Lopressor) 50 mg Q12HR GT 10/28/18 21:00 11/27/18 20:59 10/30/18 08:25 Ondansetron HCl (Zofran) 4 mg Q4H PRN IVP Nausea & Vomiting 10/28/18 05:00 11/27/18 04:59 10/29/18 21:36 Piperacillin Sod/ Tazobactam Sod 3.375 gm/Sodium Chloride 110 ml @ 27.5 mls/hr EVERY 8 HOURS IVPB 10/29/18 14:00 11/03/18 13:59 10/30/18 15:00 Vancomycin HCl (Vanco rx to dose) 1 ea DAILY PRN MISC Per rx protocol 10/29/18 09:45 11/28/18 09:44 Vancomycin HCl 750 mg/Sodium Chloride 275 ml @ 183.333 mls/hr Q24H IVPB 10/29/18 12:00 11/03/18 11:59 10/30/18 15:00 Zinc Sulfate (Zinc Sulfate) 220 mg DAILY ORAL 10/31/18 09:00 11/10/18 08:59 Shauna Bobo M.D. Oct 30, 2018 18:08
--- NOTE | 2018-10-30 19:00 | NUR ---
RESPIRATORY NOTE: Received pt on AC 16, 500VT, 40%, PEEP +5. Pt is trach-dependent w/ a cuffed, Portex 7 tube. Pt obtunded. B/S bruno. rhonchi, sxn small amounts of thick, azul-yellow secretions. Family present at bedside. Vent plugged into red outlet, ambubag at bedside. Pt in no apparent distress at this time. Will continue plan of care.
--- NOTE | 2018-10-30 19:20 | NUR ---
NURSE NOTES: Received report from Roberth RN, pt. in bed obtunded, no signs or symptoms of acute cardiac or respiratory distress noted, bed in lowest position and call light within easy reach, bed alarm on, side rails up times 3 and safety brakes locked, pt. appears to be tolerating current vent settings well- AC16, TV 500, Fio2 at 40% and Peep 5- no distress noted, G tube feeding Glucerna 1.2 from previous shift held due to high residual- residual now is 75cc- will continue to monitor patient and check residual. Will continue G tube feeding once residual has decreased and pt. is able to tolerate feeding at 65cc/hr. PT. appears to be resting comfortably, STACY 24G and Rt. hand 22G- both IVs intact and patent. Safety measures continued, will continue with plan of care.
--- NOTE | 2018-10-30 19:27 | NUR ---
HAND-OFF: Report given to EPIFANIO Pearson.
[2018-10-30 20:00] VITALS: BP 138/90
--- NOTE | 2018-10-30 20:17 | NUR ---
NURSE NOTES: pt. has temp of 99.9- axillary- cooling measures applied and fan in room- Tylenol was administered by previous nurse at 18:07- will continue to monitor pt. and with plan of care. Pt. remains stable.
--- NOTE | 2018-10-30 20:33 | NUR ---
CASE MANAGEMENT: REVIEW SI: PNA . LARGE UNSTAGEABLE SACRAL DECUBITUS ULCER EXCISIONAL DEBRIDEMENT OF SACRAL DECUBITUS ULCER 10/30 T 99.9 HR 117 RR 24 BP 138/90 SAT 98% MECH VENT FIO2 40 IS: ZOSYN IV Q8HR DIGOXIN PO QD ZINC PO QD ALBUTEROL HHN Q6HR STEP DOWN UNIT STATUS DCP: PATENT IS FROM [facility] PLAN: SPUTUM CX
--- NOTE | 2018-10-30 20:45 | Operative Note - Dictated ---
DATE OF OPERATION: 10/30/2018 PREOPERATIVE DIAGNOSIS: Unstageable large sacral decubitus ulcer. POSTOPERATIVE DIAGNOSIS: Stage IV 10 cm x 7 cm x 4 cm stage IV decubitus ulcer. OPERATION PERFORMED: Excisional debridement of sacral decubitus ulcer with plans for potential flap or graft in future. ATTENDING SURGEON: Emory Tran M.D. POLL WATCHER: None. ANESTHESIOLOGIST: Not applicable. ANESTHESIA: ESTIMATED BLOOD LOSS: Minimal. IV FLUIDS: Not applicable. WOUND CLASSIFICATION: Class III. COUNTS: Sponge and needle count correct x2. SPECIMENS: None. ANTIBIOTICS: The patient on scheduled IV antibiotics. DRAINS: None. DRESSINGS: Gauze packing and dressing placed with plans for wound VAC in future. INDICATIONS FOR PROCEDURE: This 72-year-old female who is currently admitted to [facility] for care and management, who was identified on admission to have a large unstageable sacral decubitus ulcer of 10 cm x 7 cm with soft unstable eschar cap. Family was at the bedside and care was discussed with the patient's son and recommendations for debridement was made. Risks, benefits, and alternatives were discussed in detail and consent was obtained. Given the size, location, and no prior intervention, plans were for excision and debridement down to healthy viable tissue with dressing changes until ready for potential skin graft versus flap. OPERATIVE NOTE: The patient was made comfortable at the bedside and turned onto the left lateral decubitus position. The sacral area was prepped and draped in standard surgical fashion. We ensured availability of scalpels, instruments, and heat cautery. Once this was complete, time-out was taken identifying the patient, procedure, and staff. A fresh #10 scalpel was used and the borders of the eschar were incised and the eschar cap was slowly excised using #10 scalpel and Metzenbaum scissors. Once this was complete, the wound cavity was identified to be stage IV with palpable sacrum that did not look actively infected or otherwise abnormal. Coccyx could be noted. The wound bed was irrigated, cleansed, and the remaining slough and necrotic tissue were excised down to healthy viable tissue. Hemostasis was obtained with heat cautery. Once this was complete, pressure was held until good hemostasis was noted and wound bed was irrigated, inspected, and noted to be viable and otherwise healthy. At this time, decision was made to continue with wet-to-dry t.i.d. dressings for few days and then an application of wound VAC and when ready, flap or skin graft. Dressings were applied. The patient tolerated the procedure well and was placed back in the supine position with all bony prominences well padded. Emory Tran M.D. DR: Krish JOB#: [id number] CC:
--- NOTE | 2018-10-30 21:16 | NUR ---
NURSE NOTES: re-assessed temp now 98.9- axillary- temp is trending down - cooling measures and fan in room effective, will continue to monitor pt. and with plan of care.
[2018-10-31] VITALS: BP 145/86
[2018-10-31] MEDS: Albuterol/Ipratropium 3ml neb HHN SCH ×4 (01:04→20:23)
[2018-10-31 04:00] VITALS: BP 136/82
[2018-10-31] MEDS: Piperacillin/Tazobactam 3.375 GM in NS 110 ML IVPB SCH ×3 (05:30→21:11)
[2018-10-31] MEDS: Metoclopramide 10mg/2ml Inj IVP SCH ×4 (05:30→23:10)
[2018-10-31 05:44] LABS: HEMATOCRIT 21.4 % (37.0-47.0); MEAN CORPUSCULAR VOLUME 94 FL (80-99); PLATELET COUNT 267 K/UL (150-450); RED BLOOD COUNT 2.28 M/UL (4.20-5.40); RED CELL DISTRIBUTION WIDTH 17.4 % (11.6-14.8); WHITE BLOOD COUNT 8.8 K/UL (4.8-10.8)
[2018-10-31 05:53] LABS: ALANINE AMINOTRANSFERASE 23 U/L (12-78); ALBUMIN 1.5 G/DL (3.4-5.0); ALBUMIN/GLOBULIN RATIO 0.3 (1.0-2.7); ALKALINE PHOSPHATASE 124 U/L (46-116); ANION GAP 8 mmol/L (5-15); ASPARTATE AMINO TRANSFERASE 43 U/L (15-37); BILIRUBIN,TOTAL 0.4 MG/DL (0.2-1.0); BLOOD UREA NITROGEN 19 mg/dL (7-18); CALCIUM 8.6 MG/DL (8.5-10.1); CARBON DIOXIDE 30 MMOL/L (21-32); CHLORIDE 108 MMOL/L (98-107); CREATININE 0.5 MG/DL (0.55-1.30); PHOSPHORUS 3.2 MG/DL (2.5-4.9); SODIUM 145 MMOL/L (136-145)
[2018-10-31 05:56] LABS: POTASSIUM 2.3 MMOL/L (3.5-5.1)
[2018-10-31 06:23] LABS: HEMOGLOBIN 6.7 G/DL (12.0-16.0)
--- NOTE | 2018-10-31 06:27 | NUR ---
NURSE NOTES: left message for DR. Frias for critical labs HGB 6.7 and Potassium 2.3 also Mag 1.7- left message for DR. Frias- awaiting for call back from doctor.
[2018-10-31] MEDS ORDERED: Tubing IV Secondary IV ONE ×2 (06:49→17:25)
[2018-10-31] MEDS ORDERED: NS 275ml ONE ×2 (06:49→17:25)
--- NOTE | 2018-10-31 06:50 | NUR ---
RESPIRATORY NOTE: Patient received mechanically ventilated on PB 840 with current ordered vent settings. Patient has trach Portex 7.0 that is secured with trach tie and guard. Vent alarms are functional and audible. There is an ambu bag available at the bedside and the vent is connected to a red outlet. Patient appears comfortable at this time. Inline breathing treatment given with no adverse reaction noted. Will continue to monitor.
--- NOTE | 2018-10-31 07:01 | NUR ---
HAND-OFF: Report given to Keyana RN, pt. remains stable and no signs of distress noted. Nurse aware to f/u on abnormal labs -message left for DR. Frias.
--- NOTE | 2018-10-31 07:27 | NUR ---
NURSE NOTES: received patient report from song blackwood. patient is on bed as;eep with family member in the room. no signs of acute distress noted. no report of arrythmias reported during the night. will continue to monitor. Addendum: 10/31/18 at 0732 by WHIT GARCIA RN disregard above note
--- NOTE | 2018-10-31 07:33 | NUR ---
NURSE NOTES: received patient report from aida blackwood. patient is on bed as;eep. on vent at prescribed rate. no signs of acute resp distress. no arrythmias reported during the night. will follow plan of care.
[2018-10-31 08:00] VITALS: BP 134/72
[2018-10-31] MEDS: Losartan 25mg tab GT SCH (08:13)
[2018-10-31] MEDS: Lactobacillus-GG tablet GT SCH (08:14)
[2018-10-31] MEDS: Metoprolol Tartrate 50mg tab GT SCH ×2 (08:14→20:12)
[2018-10-31] MEDS: Ascorbic Acid 500mg tab ORAL SCH ×2 (08:14→17:05)
[2018-10-31] MEDS: Docusate 100mg/10ml Liq GT SCH (08:14)
[2018-10-31] MEDS: Heparin 5000 units/ml inj SUBQ SCH (08:17)
[2018-10-31] MEDS: Zinc Sulfate 220mg cap ORAL SCH (08:20)
[2018-10-31] MEDS: Artificial Tears 1.4% Op Soln BOTH EYES SCH ×3 (08:21→17:05)
--- NOTE | 2018-10-31 08:29 | Progress Note ---
DATE: 10/30/2018 NOTE: POOR AUDIO SUBJECTIVE: The patient is awake, alert, afebrile, and hemodynamically stable. Her eyes are open. There is no eye contact. Her tongue is protrudent, but she does not appear in any distress. PHYSICAL EXAMINATION: VITAL SIGNS: Blood pressure is 138/90, pulse is 86, respirations of 22, and temperature 98.9. HEENT: Eyes were normal. ENT, mucous membranes were moist and intact. NECK: Supple with no JVD without lymph nodes. Tracheostomy site is clean. LUNGS: Clear without rhonchi, rales, or wheezing. Secretions are small, thin, and duval. HEART: Normal sounds with regular beats. There is no tachycardia at rest. ABDOMEN: Soft and nontender with normal bowel sounds. Gastrostomy site is clean. EXTREMITIES: Warm without cyanosis, clubbing, or edema. LABORATORY AND DIAGNOSTIC DATA: Hemoglobin is 8.2, hematocrit 25.7, MCV of 92, WBC of 11.2, and platelets are 240,000. WBC was 13.9 on 10/28/2018, platelet was 262,000, hemoglobin and hematocrit were 8 and 25.2. . BUN and creatinine are 25 and 0.5 respectively. Her sodium is 140, potassium 3.5, chloride 103, and CO2 is 32. HbA1c is 5.7. Calcium is 8.9. Uric acid is 3.9. SGOT is 60 and SGPT is 25. Her BNP 1467. Albumin is 1.4. Stool for occult blood was positive. Urine culture on 10/28/2018 showed yeast was negative. Chest x-ray has left pleural effusion, hiatal hernia edema Ellis. Her repeat laboratory tests will be done in the a.m. pulmonary qa consultant. Che Frias M.D. DR: BRENDA JOB#: [id number] CC:
[2018-10-31 11:31] LABS: ANION GAP 6 mmol/L (5-15); BLOOD UREA NITROGEN 17 mg/dL (7-18); CALCIUM 8.7 MG/DL (8.5-10.1); CARBON DIOXIDE 31 MMOL/L (21-32); CHLORIDE 108 MMOL/L (98-107); CREATININE 0.5 MG/DL (0.55-1.30); SODIUM 145 MMOL/L (136-145)
[2018-10-31 11:32] LABS: POTASSIUM 2.7 MMOL/L (3.5-5.1)
--- NOTE | 2018-10-31 11:49 | Pulmonolgy Critical Care Note ---
Critical Care - Asmt/Plan Problems: (1) Respiratory failure, acute and chronic (2) HCAP (healthcare-associated pneumonia) (3) Sepsis (4) ATN (acute tubular necrosis) (5) Atrial fibrillation (6) Anemia, chronic disease (7) Hypothyroidism (8) Neoplasm of esophagus, malignant (9) History of CHF (congestive heart failure) (10) Decubitus skin ulcer (11) History of sudden cardiac arrest Respiratory: monitor respiratory rate, adjust FIO2, CXR Cardiac: continue to monitor HR/BP Renal: F/U I&O, keep IV fluid, check electrolytes Infectious Disease: check cultures Gastrointestinal: continue feedings/current rate Endocrine: check TSH, check HgA1C Hematologic: transfuse if hgb<8.5 Neurologic: PRN Ativan, keep patient comfortable Affect: PRN ativan Prophylaxis: Heparin Disposition: keep in ICU Time Spent (Minutes): 40 Notes Reviewed: renal Discussed with: nurses, consultants, clinical case managermanager night - Objective Last 24 Hour Vital Signs Date Time Temp Pulse Resp B/P (MAP) Pulse Ox O2 Delivery O2 Flow Rate FiO2 10/31/18 11:25 80 19 40 10/31/18 09:00 Mechanical Ventilator 10/31/18 08:53 80 19 40 10/31/18 08:14 88 134/72 10/31/18 08:14 88 10/31/18 08:13 134/72 10/31/18 08:00 40 10/31/18 08:00 98.4 88 16 134/72 (92) 100 10/31/18 08:00 94 10/31/18 06:55 100 17 100 Mechanical Ventilator 40 10/31/18 06:46 88 16 40 10/31/18 06:45 88 16 99 Mechanical Ventilator 40 10/31/18 05:14 88 16 40 10/31/18 04:00 90 10/31/18 04:00 Mechanical Ventilator 10/31/18 04:00 98.9 88 20 136/82 (100) 100 10/31/18 04:00 40 10/31/18 03:10 91 17 40 10/31/18 01:14 85 19 100 Mechanical Ventilator 40 10/31/18 01:04 86 16 40 10/31/18 01:04 86 16 100 Mechanical Ventilator 40 10/31/18 00:00 40 10/31/18 00:00 93 10/31/18 00:00 Mechanical Ventilator 10/31/18 00:00 98.0 93 24 145/86 (105) 99 10/30/18 23:13 93 25 40 10/30/18 21:15 98.9 10/30/18 21:07 86 22 40 10/30/18 20:09 117 138/90 10/30/18 20:00 Mechanical Ventilator 10/30/18 20:00 117 10/30/18 20:00 40 10/30/18 20:00 99.9 99 24 138/90 (106) 98 10/30/18 19:06 109 23 100 Mechanical Ventilator 40 10/30/18 18:56 104 22 40 10/30/18 18:56 104 22 97 Mechanical Ventilator 40 10/30/18 17:20 92 16 40 10/30/18 16:00 98.6 99 22 149/94 (112) 98 10/30/18 16:00 93 10/30/18 16:00 Mechanical Ventilator 10/30/18 16:00 40 10/30/18 15:17 91 16 40 10/30/18 13:31 98 19 99 Mechanical Ventilator 40 10/30/18 13:20 98 19 100 Mechanical Ventilator 40 10/30/18 13:20 98 19 40 10/30/18 12:00 96 10/30/18 12:00 40 10/30/18 12:00 98.8 95 22 138/98 (111) 97 10/30/18 12:00 Mechanical Ventilator Status: awake Condition: critical HEENT: atraumatic Neck: full ROM Lungs: clear Heart: HR/BP stable, regular Abdomen: soft, active bowel sounds, feeding tube Decubiti: location Accucheck: 147 Critical Care - Subjective ROS Limited/Unobtainable: Yes Condition: critical EKG Rhythm: Sinus Rhythm FI02: 40 Vent Support Breath Rate: 16 Vent Support Mode: AC Vent Tidal Volume: 500 Sputum Amount: Moderate PEEP: 5.0 PIP: 33 Tube Feeding Amount: 50 I&O: Intake and Output 10/30/18 10/31/18 19:00 07:00 Intake Total 160 ml 770.0 ml Output Total 400 ml 650 ml Balance -240 ml 120.0 ml Intake Free Water 250 ml IV Total 110.0 ml Tube Feeding 160 ml 410 ml Output Urine Total 400 ml 650 ml # Bowel Movements 4 4 CXR: NAD Labs: Laboratory Tests Test 10/31/18 03:40 10/31/18 11:10 White Blood Count 8.8 K/UL (4.8-10.8) Red Blood Count 2.28 M/UL (4.20-5.40) L Hemoglobin 6.7 G/DL (12.0-16.0) *L Hematocrit 21.4 % (37.0-47.0) L Mean Corpuscular Volume 94 FL (80-99) Mean Corpuscular Hemoglobin 29.5 PG (27.0-31.0) Mean Corpuscular Hemoglobin Concent 31.4 G/DL (32.0-36.0) L Red Cell Distribution Width 17.4 % (11.6-14.8) H Platelet Count 267 K/UL (150-450) Mean Platelet Volume 6.1 FL (6.5-10.1) L Neutrophils (%) (Auto) % (45.0-75.0) Lymphocytes (%) (Auto) % (20.0-45.0) Monocytes (%) (Auto) % (1.0-10.0) Eosinophils (%) (Auto) % (0.0-3.0) Basophils (%) (Auto) % (0.0-2.0) Differential Total Cells Counted 100 Neutrophils % (Manual) 79 % (45-75) H Lymphocytes % (Manual) 5 % (20-45) L Monocytes % (Manual) 11 % (1-10) H Eosinophils % (Manual) 5 % (0-3) H Basophils % (Manual) 0 % (0-2) Band Neutrophils 0 % (0-8) Platelet Estimate Adequate Platelet Morphology Normal Hypochromasia 1+ Anisocytosis 1+ Sodium Level 145 MMOL/L (136-145) 145 MMOL/L (136-145) Potassium Level 2.3 MMOL/L (3.5-5.1) *L 2.7 MMOL/L (3.5-5.1) *L Chloride Level 108 MMOL/L (98-107) H 108 MMOL/L (98-107) H Carbon Dioxide Level 30 MMOL/L (21-32) 31 MMOL/L (21-32) Anion Gap 8 mmol/L (5-15) 6 mmol/L (5-15) Blood Urea Nitrogen 19 mg/dL (7-18) H 17 mg/dL (7-18) Creatinine 0.5 MG/DL (0.55-1.30) L 0.5 MG/DL (0.55-1.30) L Estimat Glomerular Filtration Rate mL/min (>60) mL/min (>60) Glucose Level 154 MG/DL (74-106) H 162 MG/DL (74-106) H Calcium Level 8.6 MG/DL (8.5-10.1) 8.7 MG/DL (8.5-10.1) Phosphorus Level 3.2 MG/DL (2.5-4.9) Magnesium Level 1.7 MG/DL (1.8-2.4) L Total Bilirubin 0.4 MG/DL (0.2-1.0) Aspartate Amino Transf (AST/SGOT) 43 U/L (15-37) H Alanine Aminotransferase (ALT/SGPT) 23 U/L (12-78) Alkaline Phosphatase 124 U/L (46-116) H Total Protein 6.5 G/DL (6.4-8.2) Albumin 1.5 G/DL (3.4-5.0) L Globulin 5.0 g/dL Albumin/Globulin Ratio 0.3 (1.0-2.7) L Belem Brooke MD Oct 31, 2018 11:49
--- NOTE | 2018-10-31 11:52 | NUR ---
NURSE NOTES: per dr escobar, discontinue the other bag of PRBC. Administer [address] Escobar ordered 40meqs KCL GT.will continue to monitor.
[2018-10-31 12:00] VITALS: BP 144/82
[2018-10-31] MEDS: Vancomycin 750mg/NS 275ml IVPB SCH ×2 (12:18)
--- NOTE | 2018-10-31 13:27 | NUR ---
NURSE NOTES: madeline workman anymore for hgb 7.6. will continue to monitor. Addendum: 10/31/18 at 1906 by WHIT GARCIA RN disregard above note
--- NOTE | 2018-10-31 15:07 | Surgery Progress Note ---
Surgery Progress Note Subjective Procedure Performed excisional debridement of sacral decubitus ulcer Additional Comments exam stable family at bedside considering possible end of life care Objective Last 24 Hour Vital Signs Date Time Temp Pulse Resp B/P (MAP) Pulse Ox O2 Delivery O2 Flow Rate FiO2 10/31/18 14:45 90 16 40 10/31/18 13:15 83 17 40 10/31/18 12:49 81 10/31/18 12:33 100 17 100 Mechanical Ventilator 40 10/31/18 12:23 83 17 94 Mechanical Ventilator 40 10/31/18 12:00 98.5 84 17 144/82 (102) 100 10/31/18 12:00 Mechanical Ventilator 10/31/18 12:00 40 10/31/18 11:25 80 19 40 10/31/18 09:00 Mechanical Ventilator 10/31/18 08:53 80 19 40 10/31/18 08:14 88 134/72 10/31/18 08:14 88 10/31/18 08:13 134/72 10/31/18 08:00 40 10/31/18 08:00 98.4 88 16 134/72 (92) 100 10/31/18 08:00 94 10/31/18 06:55 100 17 100 Mechanical Ventilator 40 10/31/18 06:46 88 16 40 10/31/18 06:45 88 16 99 Mechanical Ventilator 40 10/31/18 05:14 88 16 40 10/31/18 04:00 90 10/31/18 04:00 Mechanical Ventilator 10/31/18 04:00 98.9 88 20 136/82 (100) 100 10/31/18 04:00 40 10/31/18 03:10 91 17 40 10/31/18 01:14 85 19 100 Mechanical Ventilator 40 10/31/18 01:04 86 16 40 10/31/18 01:04 86 16 100 Mechanical Ventilator 40 10/31/18 00:00 40 10/31/18 00:00 93 10/31/18 00:00 Mechanical Ventilator 10/31/18 00:00 98.0 93 24 145/86 (105) 99 10/30/18 23:13 93 25 40 10/30/18 21:15 98.9 10/30/18 21:07 86 22 40 10/30/18 20:09 117 138/90 10/30/18 20:00 Mechanical Ventilator 10/30/18 20:00 117 10/30/18 20:00 40 10/30/18 20:00 99.9 99 24 138/90 (106) 98 10/30/18 19:06 109 23 100 Mechanical Ventilator 40 10/30/18 18:56 104 22 40 10/30/18 18:56 104 22 97 Mechanical Ventilator 40 10/30/18 17:20 92 16 40 10/30/18 16:00 98.6 99 22 149/94 (112) 98 10/30/18 16:00 93 10/30/18 16:00 Mechanical Ventilator 10/30/18 16:00 40 10/30/18 15:17 91 16 40 I&O Intake and Output 10/30/18 10/31/18 18:59 06:59 Intake Total 160 ml 770.0 ml Output Total 400 ml 650 ml Balance -240 ml 120.0 ml Intake Free Water 250 ml IV Total 110.0 ml Tube Feeding 160 ml 410 ml Output Urine Total 400 ml 650 ml # Bowel Movements 4 4 Dressing: saturated Wound: clean Cardiovascular: RSR Respiratory: clear Abdomen: soft, present bowel sounds, non-distended Extremities: no cyanosis, other Laboratory Tests Test 10/31/18 03:40 10/31/18 11:10 White Blood Count 8.8 K/UL (4.8-10.8) Red Blood Count 2.28 M/UL (4.20-5.40) L Hemoglobin 6.7 G/DL (12.0-16.0) *L Hematocrit 21.4 % (37.0-47.0) L Mean Corpuscular Volume 94 FL (80-99) Mean Corpuscular Hemoglobin 29.5 PG (27.0-31.0) Mean Corpuscular Hemoglobin Concent 31.4 G/DL (32.0-36.0) L Red Cell Distribution Width 17.4 % (11.6-14.8) H Platelet Count 267 K/UL (150-450) Mean Platelet Volume 6.1 FL (6.5-10.1) L Neutrophils (%) (Auto) % (45.0-75.0) Lymphocytes (%) (Auto) % (20.0-45.0) Monocytes (%) (Auto) % (1.0-10.0) Eosinophils (%) (Auto) % (0.0-3.0) Basophils (%) (Auto) % (0.0-2.0) Differential Total Cells Counted 100 Neutrophils % (Manual) 79 % (45-75) H Lymphocytes % (Manual) 5 % (20-45) L Monocytes % (Manual) 11 % (1-10) H Eosinophils % (Manual) 5 % (0-3) H Basophils % (Manual) 0 % (0-2) Band Neutrophils 0 % (0-8) Platelet Estimate Adequate Platelet Morphology Normal Hypochromasia 1+ Anisocytosis 1+ Sodium Level 145 MMOL/L (136-145) 145 MMOL/L (136-145) Potassium Level 2.3 MMOL/L (3.5-5.1) *L 2.7 MMOL/L (3.5-5.1) *L Chloride Level 108 MMOL/L (98-107) H 108 MMOL/L (98-107) H Carbon Dioxide Level 30 MMOL/L (21-32) 31 MMOL/L (21-32) Anion Gap 8 mmol/L (5-15) 6 mmol/L (5-15) Blood Urea Nitrogen 19 mg/dL (7-18) H 17 mg/dL (7-18) Creatinine 0.5 MG/DL (0.55-1.30) L 0.5 MG/DL (0.55-1.30) L Estimat Glomerular Filtration Rate mL/min (>60) mL/min (>60) Glucose Level 154 MG/DL (74-106) H 162 MG/DL (74-106) H Calcium Level 8.6 MG/DL (8.5-10.1) 8.7 MG/DL (8.5-10.1) Phosphorus Level 3.2 MG/DL (2.5-4.9) Magnesium Level 1.7 MG/DL (1.8-2.4) L Total Bilirubin 0.4 MG/DL (0.2-1.0) Aspartate Amino Transf (AST/SGOT) 43 U/L (15-37) H Alanine Aminotransferase (ALT/SGPT) 23 U/L (12-78) Alkaline Phosphatase 124 U/L (46-116) H Total Protein 6.5 G/DL (6.4-8.2) Albumin 1.5 G/DL (3.4-5.0) L Globulin 5.0 g/dL Albumin/Globulin Ratio 0.3 (1.0-2.7) L Assessment Post-op Diagnosis stage 4 sacral decubitus ulcer Plan Problems: (1) Sepsis Assessment & Plan: 72 year old female presented with sepsis. hypotension, tachycardic, leukocytosis. currently in [facility] under good care labs improving on iv abx responding to fluids cont with current care trend labs will follow with recs (2) ATN (acute tubular necrosis) (3) Respiratory failure, acute and chronic (4) Anemia, chronic disease (5) Dehydration Assessment & Plan: DAILY ESTIMATED NEEDS: Needs based on Critical care, wound 45.5kg 25-30 kcals/kg 0511-6681 total kcals 1.25-2 g protein/kg 57-91 g total protein 25-30 mL/kg 4815-8142 total fluid mLs NUTRITION DIAGNOSIS: 1) Increased kcal and pro needs r/t wound healing as evidenced by pt w/ unstageable sacral wound, w/ L ear + L mandible ulcer. 2) Swallowing difficulty r/t respiratory status as evidenced by pt is trach and PEG dep. CURRENT TF: Glucerna 1.2 @65ml/hr x20 hrs + Prostat/ prosource x1 daily ENTERAL NUTRITION RECOMMENDATIONS: Maintain current TF order of Glucerna 1.2 @65ml/hr x20 hrs + PS x1 to provide 1300ml, 1560 kcal, 78g + 11g pro, 1047ml free H2O - Maintain current TF as tolerated, provides 100% est needs - Flush per MD. HOB over 30 degrees. 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 Emory Tran Oct 31, 2018 15:07
[2018-10-31] MEDS: Sodium Chloride for KCL Premix x 2hrs IV SCH ×2 (15:33→17:03)
[2018-10-31 16:00] VITALS: BP 135/80
--- NOTE | 2018-10-31 18:03 | Infectious Diseases Prog Note ---
Assessment/Plan Assessment/Plan Assessment/Plan: Ms. Danielle is a 72 yo female with PMHx of head and neck cancer, S/P trach, vent dependent, Dysphagia s/p PEG and Encephalopathy who was sent to the ED from her alf on 10/28/18 for hypotension. She is not verbal so history was obtained from the chart. In the ED she was febrile up to 102. Had WBCs of 12. She also had Afib RVR. CXR shows Pneumonitis. She was also noted to have pressures ulcer on her bottom and left face. Sepsis PNA vs Infected ulcers CXR possible Pneumonitis Leukocytosis up to 13; improving Fever up to 102; improving UA (-); ucx Rema Bcx NTD Head and neck cancer S/P trach Vent dependent Dysphagia s/p PEG Encephalopathy PLAN - Cont empiric Zosyn #3 and Vancomycin #3 pedning sp cx - 10/29/18 S/P Cefepime #1 and Levofloxacin - f/u Cultures - wound care - f/u surgery recs for debridement - Monitor CBC and Temps -f/u sp cx Thank you for this consult. We will continue to follow the patient during this hospitalization. Subjective Allergies: Coded Allergies: No Known Allergies (Unverified , 10/28/18) Subjective afebrile >24hrs leukocytosis resolved Bcx NTD Objective Vital Signs Last 24 Hour Vital Signs Date Time Temp Pulse Resp B/P (MAP) Pulse Ox O2 Delivery O2 Flow Rate FiO2 10/31/18 16:56 93 16 40 10/31/18 16:00 98.9 96 17 135/80 (98) 100 10/31/18 16:00 Mechanical Ventilator 10/31/18 16:00 40 10/31/18 15:24 93 10/31/18 14:45 90 16 40 10/31/18 13:15 83 17 40 10/31/18 12:49 81 10/31/18 12:33 100 17 100 Mechanical Ventilator 40 10/31/18 12:23 83 17 94 Mechanical Ventilator 40 10/31/18 12:00 98.5 84 17 144/82 (102) 100 10/31/18 12:00 Mechanical Ventilator 10/31/18 12:00 40 10/31/18 11:25 80 19 40 10/31/18 09:00 Mechanical Ventilator 10/31/18 08:53 80 19 40 10/31/18 08:14 88 134/72 10/31/18 08:14 88 10/31/18 08:13 134/72 10/31/18 08:00 40 10/31/18 08:00 98.4 88 16 134/72 (92) 100 10/31/18 08:00 94 10/31/18 06:55 100 17 100 Mechanical Ventilator 40 10/31/18 06:46 88 16 40 10/31/18 06:45 88 16 99 Mechanical Ventilator 40 10/31/18 05:14 88 16 40 10/31/18 04:00 90 10/31/18 04:00 Mechanical Ventilator 10/31/18 04:00 98.9 88 20 136/82 (100) 100 10/31/18 04:00 40 10/31/18 03:10 91 17 40 10/31/18 01:14 85 19 100 Mechanical Ventilator 40 10/31/18 01:04 86 16 40 10/31/18 01:04 86 16 100 Mechanical Ventilator 40 10/31/18 00:00 40 10/31/18 00:00 93 10/31/18 00:00 Mechanical Ventilator 10/31/18 00:00 98.0 93 24 145/86 (105) 99 10/30/18 23:13 93 25 40 10/30/18 21:15 98.9 10/30/18 21:07 86 22 40 10/30/18 20:09 117 138/90 10/30/18 20:00 Mechanical Ventilator 10/30/18 20:00 117 10/30/18 20:00 40 10/30/18 20:00 99.9 99 24 138/90 (106) 98 10/30/18 19:06 109 23 100 Mechanical Ventilator 40 10/30/18 18:56 104 22 40 10/30/18 18:56 104 22 97 Mechanical Ventilator 40 Height (Feet): 5 Height (Inches): 1.00 Weight (Pounds): 96 Objective Objective Narrative Gen: Not responsive, On Vent HEENT: NCAT, MMM, PERRL, left face ulceration, Left ear ulceration NECK: supple, No LAD, No JVD, Trach ( No E/P) LUNGS: CTAB, No W/C, No Accessory muscle use CARDS: RRR, S1, S2, No M/R/G, ABD: Soft, NT, ND, No R/G, + BS, No HSM, No Masses, PED ( No E/P) : Deferred Ext: C/C/E, Pulses 2+ B/L (DP, Rad) NEURO: Not responsive, No spont movements SKIN: Warm/dry, No rashes, Unstagable Decubs Necrotic tissue Laboratory Tests Test 10/31/18 03:40 10/31/18 11:10 White Blood Count 8.8 K/UL (4.8-10.8) Red Blood Count 2.28 M/UL (4.20-5.40) L Hemoglobin 6.7 G/DL (12.0-16.0) *L Hematocrit 21.4 % (37.0-47.0) L Mean Corpuscular Volume 94 FL (80-99) Mean Corpuscular Hemoglobin 29.5 PG (27.0-31.0) Mean Corpuscular Hemoglobin Concent 31.4 G/DL (32.0-36.0) L Red Cell Distribution Width 17.4 % (11.6-14.8) H Platelet Count 267 K/UL (150-450) Mean Platelet Volume 6.1 FL (6.5-10.1) L Neutrophils (%) (Auto) % (45.0-75.0) Lymphocytes (%) (Auto) % (20.0-45.0) Monocytes (%) (Auto) % (1.0-10.0) Eosinophils (%) (Auto) % (0.0-3.0) Basophils (%) (Auto) % (0.0-2.0) Differential Total Cells Counted 100 Neutrophils % (Manual) 79 % (45-75) H Lymphocytes % (Manual) 5 % (20-45) L Monocytes % (Manual) 11 % (1-10) H Eosinophils % (Manual) 5 % (0-3) H Basophils % (Manual) 0 % (0-2) Band Neutrophils 0 % (0-8) Platelet Estimate Adequate Platelet Morphology Normal Hypochromasia 1+ Anisocytosis 1+ Sodium Level 145 MMOL/L (136-145) 145 MMOL/L (136-145) Potassium Level 2.3 MMOL/L (3.5-5.1) *L 2.7 MMOL/L (3.5-5.1) *L Chloride Level 108 MMOL/L (98-107) H 108 MMOL/L (98-107) H Carbon Dioxide Level 30 MMOL/L (21-32) 31 MMOL/L (21-32) Anion Gap 8 mmol/L (5-15) 6 mmol/L (5-15) Blood Urea Nitrogen 19 mg/dL (7-18) H 17 mg/dL (7-18) Creatinine 0.5 MG/DL (0.55-1.30) L 0.5 MG/DL (0.55-1.30) L Estimat Glomerular Filtration Rate mL/min (>60) mL/min (>60) Glucose Level 154 MG/DL (74-106) H 162 MG/DL (74-106) H Calcium Level 8.6 MG/DL (8.5-10.1) 8.7 MG/DL (8.5-10.1) Phosphorus Level 3.2 MG/DL (2.5-4.9) Magnesium Level 1.7 MG/DL (1.8-2.4) L Total Bilirubin 0.4 MG/DL (0.2-1.0) Aspartate Amino Transf (AST/SGOT) 43 U/L (15-37) H Alanine Aminotransferase (ALT/SGPT) 23 U/L (12-78) Alkaline Phosphatase 124 U/L (46-116) H Total Protein 6.5 G/DL (6.4-8.2) Albumin 1.5 G/DL (3.4-5.0) L Globulin 5.0 g/dL Albumin/Globulin Ratio 0.3 (1.0-2.7) L Current Medications Medications (Trade) Dose Ordered Sig/Reginaldo Route PRN Reason Start Time Stop Time Status Last Admin Dose Admin Acetaminophen (Tylenol) 650 mg Q4H PRN GT Mild Pain/Temp > 100.5 10/28/18 05:00 11/27/18 04:59 10/30/18 18:07 Albuterol/ Ipratropium (Albuterol/ Ipratropium) 3 ml Q3H PRN HHN Shortness of Breath 10/28/18 05:00 11/02/18 04:59 Albuterol/ Ipratropium (Albuterol/ Ipratropium) 3 ml Q6HRT HHN 10/28/18 07:00 11/02/18 06:59 10/31/18 12:23 Artificial Tears (Akwa-Tears) 1 drop TID BOTH EYES 10/28/18 09:00 11/27/18 08:59 10/31/18 17:05 Ascorbic Acid (Vitamin C) 250 mg TWICE A DAY ORAL 10/30/18 18:00 11/29/18 17:59 10/31/18 17:05 Digoxin (Lanoxin) 0.25 mg DAILY ORAL 10/29/18 09:00 11/28/18 08:59 10/31/18 08:14 Docusate Sodium (Colace) 100 mg DAILY GT 10/28/18 09:00 11/27/18 08:59 10/31/18 08:14 Lactobacillus Acidophilus (Culturelle) 1 tab DAILY GT 10/28/18 09:00 11/27/18 08:59 10/31/18 08:14 Lansoprazole (Prevacid) 30 mg BID GT 10/28/18 09:00 11/27/18 08:59 10/31/18 17:05 Levothyroxine Sodium (Synthroid) 75 mcg DAILY@0630 GT 10/28/18 06:30 11/27/18 06:29 10/31/18 05:30 Losartan Potassium (Cozaar) 12.5 mg DAILY GT 10/28/18 09:00 11/27/18 08:59 10/31/18 08:13 Magnesium Hydroxide (Mom) 30 ml HSPRN PRN GT Constipation 10/28/18 05:00 11/27/18 04:59 Metoclopramide HCl (Reglan) 10 mg Q6HR IVP 10/29/18 16:21 11/28/18 16:20 10/31/18 17:05 Metoprolol Tartrate (Lopressor) 5 mg Q1H PRN IVP spb more than 120 10/28/18 12:45 11/27/18 12:44 10/29/18 06:55 Metoprolol Tartrate (Lopressor) 50 mg Q12HR GT 10/28/18 21:00 11/27/18 20:59 10/31/18 08:14 Ondansetron HCl (Zofran) 4 mg Q4H PRN IVP Nausea & Vomiting 10/28/18 05:00 11/27/18 04:59 10/29/18 21:36 Piperacillin Sod/ Tazobactam Sod 3.375 gm/Sodium Chloride 110 ml @ 27.5 mls/hr EVERY 8 HOURS IVPB 10/29/18 14:00 11/03/18 13:59 10/31/18 13:35 Potassium Chloride (K-Dur) 40 meq ONCE ORAL 10/31/18 18:00 10/31/18 19:00 10/31/18 17:07 Vancomycin HCl (Vanco rx to dose) 1 ea DAILY PRN MISC Per rx protocol 10/29/18 09:45 11/28/18 09:44 Vancomycin HCl 750 mg/Sodium Chloride 275 ml @ 183.333 mls/hr Q24H IVPB 10/29/18 12:00 11/03/18 11:59 10/31/18 12:18 Zinc Sulfate (Zinc Sulfate) 220 mg DAILY ORAL 10/31/18 09:00 11/10/18 08:59 10/31/18 08:20 Shauna Bobo M.D. Oct 31, 2018 18:03
--- NOTE | 2018-10-31 19:02 | NUR ---
NURSE NOTES: Received report from Keyana GODFREY, pt. is in bed obtunded, no signs or symptoms of acute cardiac or respiratory distress noted, bed in lowest position and call light within easy reach, bed alarm on, side rails up X's 3 and safety brakes engaged, pt. appears to be tolerating current vent settings well- AC16, TV 500, Fio2 at 40% and Peep 5- no distress noted, pt. is clean and dry, G tube feeding Glucerna 1.2 running @30cc/hr- not at Goal which is 65cc/hr- as pt. is not tolerating feeding- will continue to monitor, PT. appears to be resting comfortably, STACY 24G and Rt. hand 22G- both IVs intact and patent. Safety measures continued, will continue with plan of care.
--- NOTE | 2018-10-31 19:27 | NUR ---
NURSE NOTES: noted blood from wound at the back, gauze dressing was soaked with blood. reinforced and packed with dressing. endorsed to business relationship manager nurse to monitor and to call dr aguilera if blood still coming out.
[2018-10-31 20:00] VITALS: BP 135/80
--- NOTE | 2018-10-31 22:03 | NUR ---
NURSE NOTES: Accidentally entered DuoNeb for pt. from 6hrs to 4 hrs for wrong pt. re-changed DuoNeb back to Q6hrs and entered under primary doctors name.
[2018-10-31] MEDS ORDERED: Albuterol/Ipratropium 3ml neb HHN SCH (23:00)
--- NOTE | 2018-10-31 23:45 | Cardiology Progress Note ---
Assessment/Plan Assessment/Plan 1. Paroxysmal atrial fibrillation, currently in SR. Continue metoprolol and digoxin. Keep K above 4.0 to avoid digoxin toxicity. 2. Ventilatory-drive respiratory failure, status post tracheostomy tube placement. 3. Dysphagia, status post PEG placement. 4. Head and neck cancer. 5. Hypothyroidism, on thyroid supplementation. 6. History of hypertension. Subjective Subjective Sinus rhythm at rate of 85. Objective Last 24 Hour Vital Signs Date Time Temp Pulse Resp B/P (MAP) Pulse Ox O2 Delivery O2 Flow Rate FiO2 10/31/18 23:01 85 16 40 10/31/18 20:40 83 16 40 10/31/18 20:38 82 17 98 Mechanical Ventilator 40 10/31/18 20:23 89 16 100 Mechanical Ventilator 40 10/31/18 20:12 96 135/80 10/31/18 20:09 98 16 40 10/31/18 20:00 Mechanical Ventilator 10/31/18 20:00 40 10/31/18 20:00 97 10/31/18 20:00 98.4 99 16 135/80 (98) 97 10/31/18 16:56 93 16 40 10/31/18 16:00 98.9 96 17 135/80 (98) 100 10/31/18 16:00 Mechanical Ventilator 10/31/18 16:00 40 10/31/18 15:24 93 10/31/18 14:45 90 16 40 10/31/18 13:15 83 17 40 10/31/18 12:49 81 10/31/18 12:33 100 17 100 Mechanical Ventilator 40 10/31/18 12:23 83 17 94 Mechanical Ventilator 40 10/31/18 12:00 98.5 84 17 144/82 (102) 100 10/31/18 12:00 Mechanical Ventilator 10/31/18 12:00 40 10/31/18 11:25 80 19 40 10/31/18 09:00 Mechanical Ventilator 10/31/18 08:53 80 19 40 10/31/18 08:14 88 134/72 10/31/18 08:14 88 10/31/18 08:13 134/72 10/31/18 08:00 40 10/31/18 08:00 98.4 88 16 134/72 (92) 100 10/31/18 08:00 94 10/31/18 06:55 100 17 100 Mechanical Ventilator 40 10/31/18 06:46 88 16 40 10/31/18 06:45 88 16 99 Mechanical Ventilator 40 10/31/18 05:14 88 16 40 10/31/18 04:00 90 10/31/18 04:00 Mechanical Ventilator 10/31/18 04:00 98.9 88 20 136/82 (100) 100 10/31/18 04:00 40 10/31/18 03:10 91 17 40 10/31/18 01:14 85 19 100 Mechanical Ventilator 40 10/31/18 01:04 86 16 40 10/31/18 01:04 86 16 100 Mechanical Ventilator 40 10/31/18 00:00 40 10/31/18 00:00 93 10/31/18 00:00 Mechanical Ventilator 10/31/18 00:00 98.0 93 24 145/86 (105) 99 Intake and Output 10/30/18 10/31/18 19:00 07:00 Intake Total 160 ml 770.0 ml Output Total 400 ml 650 ml Balance -240 ml 120.0 ml Intake Free Water 250 ml IV Total 110.0 ml Tube Feeding 160 ml 410 ml Output Urine Total 400 ml 650 ml # Bowel Movements 4 4 2D Echo: LVEF 60%, Mild LVH, RADHA 1.9 cm2, Mod AR, RVSP 50 mmHg, Mild MR, Pleural Eff Laboratory Tests Test 10/31/18 03:40 10/31/18 11:10 White Blood Count 8.8 K/UL (4.8-10.8) Red Blood Count 2.28 M/UL (4.20-5.40) L Hemoglobin 6.7 G/DL (12.0-16.0) *L Hematocrit 21.4 % (37.0-47.0) L Mean Corpuscular Volume 94 FL (80-99) Mean Corpuscular Hemoglobin 29.5 PG (27.0-31.0) Mean Corpuscular Hemoglobin Concent 31.4 G/DL (32.0-36.0) L Red Cell Distribution Width 17.4 % (11.6-14.8) H Platelet Count 267 K/UL (150-450) Mean Platelet Volume 6.1 FL (6.5-10.1) L Neutrophils (%) (Auto) % (45.0-75.0) Lymphocytes (%) (Auto) % (20.0-45.0) Monocytes (%) (Auto) % (1.0-10.0) Eosinophils (%) (Auto) % (0.0-3.0) Basophils (%) (Auto) % (0.0-2.0) Differential Total Cells Counted 100 Neutrophils % (Manual) 79 % (45-75) H Lymphocytes % (Manual) 5 % (20-45) L Monocytes % (Manual) 11 % (1-10) H Eosinophils % (Manual) 5 % (0-3) H Basophils % (Manual) 0 % (0-2) Band Neutrophils 0 % (0-8) Platelet Estimate Adequate Platelet Morphology Normal Hypochromasia 1+ Anisocytosis 1+ Sodium Level 145 MMOL/L (136-145) 145 MMOL/L (136-145) Potassium Level 2.3 MMOL/L (3.5-5.1) *L 2.7 MMOL/L (3.5-5.1) *L Chloride Level 108 MMOL/L (98-107) H 108 MMOL/L (98-107) H Carbon Dioxide Level 30 MMOL/L (21-32) 31 MMOL/L (21-32) Anion Gap 8 mmol/L (5-15) 6 mmol/L (5-15) Blood Urea Nitrogen 19 mg/dL (7-18) H 17 mg/dL (7-18) Creatinine 0.5 MG/DL (0.55-1.30) L 0.5 MG/DL (0.55-1.30) L Estimat Glomerular Filtration Rate mL/min (>60) mL/min (>60) Glucose Level 154 MG/DL (74-106) H 162 MG/DL (74-106) H Calcium Level 8.6 MG/DL (8.5-10.1) 8.7 MG/DL (8.5-10.1) Phosphorus Level 3.2 MG/DL (2.5-4.9) Magnesium Level 1.7 MG/DL (1.8-2.4) L Total Bilirubin 0.4 MG/DL (0.2-1.0) Aspartate Amino Transf (AST/SGOT) 43 U/L (15-37) H Alanine Aminotransferase (ALT/SGPT) 23 U/L (12-78) Alkaline Phosphatase 124 U/L (46-116) H Total Protein 6.5 G/DL (6.4-8.2) Albumin 1.5 G/DL (3.4-5.0) L Globulin 5.0 g/dL Albumin/Globulin Ratio 0.3 (1.0-2.7) L Objective HEENT: Atraumatic. Bitemporal wasting. Pupils are equal, round, and reactive to light and accommodation. Conjunctiva pallor. NECK: JVP cannot be assessed as the patient in positive respiratory inspiration. CVS: Normal S1 and S2. Regular rate and rhythm. Tachycardic. No murmurs, gallops, or rubs. LUNGS: Clear to auscultation bilaterally. ABDOMEN: Soft, nontender, and nondistended. Positive G-tube in place. EXTREMITIES: Decerebrate posture, wasted lower extremity muscles. No edema. Stephan Kincaid MD Oct 31, 2018 23:45
[2018-11-01] VITALS: BP 125/76
[2018-11-01] MEDS: Albuterol/Ipratropium 3ml neb HHN SCH ×4 (00:58→19:11)
[2018-11-01] MEDS ORDERED: Albuterol/Ipratropium 3ml neb HHN SCH (01:00)
--- NOTE | 2018-11-01 01:15 | NUR ---
NURSE NOTES: pt. appeared to be warm to touch during cleaning- temp 99.5- axillary- cooling measures applied and Tylenol administered- will continue to monitor pt. and with plan of care.
[2018-11-01] MEDS: Acetaminophen 650mg/20.3ml GT PRN ×2 (01:21→17:27)
[2018-11-01 04:00] VITALS: BP 145/87
[2018-11-01] MEDS: Metoclopramide 10mg/2ml Inj IVP SCH ×4 (05:30→23:58)
[2018-11-01] MEDS: Piperacillin/Tazobactam 3.375 GM in NS 110 ML IVPB SCH ×3 (05:30→21:39)
--- NOTE | 2018-11-01 06:47 | NUR ---
NURSE NOTES: left message with exchange Estelle, for Dr. Bobo, regarding blood culture gram positive for gram negative rods x's1 bottle- awaiting for call back from doctor.
--- NOTE | 2018-11-01 07:01 | NUR ---
HAND-OFF: Report given to Keyana GODFREY, pt. remains stable and no signs of distress noted. Dressing clean and dry. Nurse aware to f/u with DR. Bobo regarding positive blood culture.
--- NOTE | 2018-11-01 07:21 | NUR ---
NURSE NOTES: received patient report from song blackwood.patient is on bed. not in acute distress.obtunded. no bleeding from the wound. on vent at prescribed rate. will follow plan of care.
[2018-11-01 08:00] VITALS: BP 137/97
[2018-11-01] MEDS: Ascorbic Acid 500mg tab ORAL SCH (08:43)
[2018-11-01] MEDS: Artificial Tears 1.4% Op Soln BOTH EYES SCH ×3 (08:43→17:23)
[2018-11-01] MEDS: Zinc Sulfate 220mg cap ORAL SCH (08:43)
[2018-11-01] MEDS: Losartan 25mg tab GT SCH (08:43)
[2018-11-01] MEDS: Docusate 100mg/10ml Liq GT SCH (08:43)
[2018-11-01] MEDS: Metoprolol Tartrate 50mg tab GT SCH ×2 (08:44→20:37)
[2018-11-01] MEDS: Lactobacillus-GG tablet GT SCH (08:44)
--- NOTE | 2018-11-01 10:52 | Pulmonolgy Critical Care Note ---
Critical Care - Asmt/Plan Problems: (1) Respiratory failure, acute and chronic (2) HCAP (healthcare-associated pneumonia) (3) Sepsis (4) ATN (acute tubular necrosis) (5) Atrial fibrillation (6) Anemia, chronic disease (7) Hypothyroidism (8) Neoplasm of esophagus, malignant (9) History of CHF (congestive heart failure) (10) Decubitus skin ulcer (11) History of sudden cardiac arrest Respiratory: monitor respiratory rate, adjust FIO2, CXR Cardiac: continue to monitor HR/BP Renal: F/U I&O Infectious Disease: check cultures Gastrointestinal: continue feedings/current rate Endocrine: monitor blood sugar Prophylaxis: Protonix, Heparin Notes Reviewed: chiropractic physician, renal Discussed with: nurses, consultants - family requested to have a meeting with all family members today. The want to decide about plan of care. Critical Care - Objective Last 24 Hour Vital Signs Date Time Temp Pulse Resp B/P (MAP) Pulse Ox O2 Delivery O2 Flow Rate FiO2 11/01/18 09:20 82 20 40 11/01/18 08:44 115 137/97 11/01/18 08:44 115 11/01/18 08:43 137/97 11/01/18 08:00 40 11/01/18 08:00 Mechanical Ventilator 11/01/18 08:00 99.9 115 22 137/97 (110) 97 11/01/18 07:35 109 11/01/18 07:25 99 16 100 Mechanical Ventilator 40 11/01/18 07:15 101 20 100 Mechanical Ventilator 40 11/01/18 07:13 99 21 40 11/01/18 05:14 101 20 40 11/01/18 04:00 99.1 100 21 145/87 (106) 98 11/01/18 04:00 100 11/01/18 04:00 40 11/01/18 04:00 Mechanical Ventilator 11/01/18 03:17 91 16 40 11/01/18 01:51 98.8 11/01/18 01:51 98.8 11/01/18 01:21 99.5 11/01/18 01:14 97 16 99 Mechanical Ventilator 40 11/01/18 00:58 88 16 100 Mechanical Ventilator 40 11/01/18 00:58 88 16 40 11/01/18 00:00 Mechanical Ventilator 11/01/18 00:00 98.8 85 16 125/76 (92) 98 11/01/18 00:00 40 10/31/18 23:20 86 10/31/18 23:01 85 16 40 10/31/18 20:40 83 16 40 10/31/18 20:38 82 17 98 Mechanical Ventilator 40 10/31/18 20:23 89 16 100 Mechanical Ventilator 40 10/31/18 20:12 96 135/80 10/31/18 20:09 98 16 40 10/31/18 20:00 Mechanical Ventilator 10/31/18 20:00 40 10/31/18 20:00 97 10/31/18 20:00 98.4 99 16 135/80 (98) 97 10/31/18 16:56 93 16 40 10/31/18 16:00 98.9 96 17 135/80 (98) 100 10/31/18 16:00 Mechanical Ventilator 10/31/18 16:00 40 10/31/18 15:24 93 10/31/18 14:45 90 16 40 10/31/18 13:15 83 17 40 10/31/18 12:49 81 10/31/18 12:33 100 17 100 Mechanical Ventilator 40 10/31/18 12:23 83 17 94 Mechanical Ventilator 40 10/31/18 12:00 98.5 84 17 144/82 (102) 100 10/31/18 12:00 Mechanical Ventilator 10/31/18 12:00 40 10/31/18 11:25 80 19 40 Status: obtunded Condition: critical HEENT: atraumatic Neck: full ROM, trach Lungs: clear Heart: HR/BP stable, regular Abdomen: non-tender, feeding tube Extremities: edema Micro: Microbiology Date/Time Source Procedure Growth Status 10/31/18 05:30 Sputum Gram Stain - Final Resulted 10/31/18 05:30 Sputum Culture - Preliminary Gram Negative Edouard Resulted Accucheck: 137 Critical Care - Subjective ROS Limited/Unobtainable: Yes Condition: critical EKG Rhythm: Sinus Rhythm FI02: 40 Vent Support Breath Rate: 16 Vent Support Mode: AC Vent Tidal Volume: 500 Sputum Amount: Small PEEP: 5.0 PIP: 35 Tube Feeding Amount: 30 I&O: Intake and Output 10/31/18 11/01/18 19:00 07:00 Intake Total 1389.166 ml 425.0 ml Output Total 750 ml 500 ml Balance 639.166 ml -75.0 ml Intake Free Water 70 ml 30 ml IV Total 959.166 ml 110.0 ml Tube Feeding 360 ml 285 ml Output Urine Total 750 ml 500 ml # Bowel Movements 3 4 CXR: no changes Labs: Laboratory Tests Test 10/31/18 11:10 Sodium Level 145 MMOL/L (136-145) Potassium Level 2.7 MMOL/L (3.5-5.1) *L Chloride Level 108 MMOL/L (98-107) H Carbon Dioxide Level 31 MMOL/L (21-32) Anion Gap 6 mmol/L (5-15) Blood Urea Nitrogen 17 mg/dL (7-18) Creatinine 0.5 MG/DL (0.55-1.30) L Estimat Glomerular Filtration Rate mL/min (>60) Glucose Level 162 MG/DL (74-106) H Calcium Level 8.7 MG/DL (8.5-10.1) Belem Brooke MD Nov 01, 2018 10:52
[2018-11-01 12:00] VITALS: BP 115/63
[2018-11-01] MEDS ORDERED: Vancomycin 750mg/NS 275ml IVPB SCH ×2 (12:00)
--- NOTE | 2018-11-01 13:02 | Infectious Diseases Prog Note ---
Assessment/Plan Assessment/Plan Assessment/Plan: Ms. Danielle is a 72 yo female with PMHx of head and neck cancer, S/P trach, vent dependent, Dysphagia s/p PEG and Encephalopathy who was sent to the ED from her [facility] on 10/28/18 for hypotension. She is not verbal so history was obtained from the chart. In the ED she was febrile up to 102. Had WBCs of 12. She also had Afib RVR. CXR shows Pneumonitis. She was also noted to have pressures ulcer on her bottom and left face. Sepsis PNA CXR possible Pneumonitis sp cx GNR Leukocytosis up to 13; SP Fever up to 102; improving UA (-); ucx Rema Bcx NTD Gram negative bacteremia -10/28 Bcx 1/4 GNR Head and neck cancer S/P trach Vent dependent Dysphagia s/p PEG Encephalopathy PLAN - Cont empiric Zosyn #4 pending Sp and blood cx -D/c Vancomycin #4 - 10/29/18 S/P Cefepime #1 and Levofloxacin - f/u Cultures - wound care - f/u surgery recs for debridement - Monitor CBC and Temps -f/u sp cx -Bcx x2 -CXR Thank you for this consult. We will continue to follow the patient during this hospitalization. Subjective Allergies: Coded Allergies: No Known Allergies (Unverified , 10/28/18) Subjective afebrile >48hrs no leukocytosis bacteremic GNR Objective Vital Signs Last 24 Hour Vital Signs Date Time Temp Pulse Resp B/P (MAP) Pulse Ox O2 Delivery O2 Flow Rate FiO2 11/01/18 12:00 Mechanical Ventilator 11/01/18 12:00 97.3 73 16 115/63 (80) 96 11/01/18 12:00 40 11/01/18 09:20 82 20 40 11/01/18 08:44 115 137/97 11/01/18 08:44 115 11/01/18 08:43 137/97 11/01/18 08:00 40 11/01/18 08:00 Mechanical Ventilator 11/01/18 08:00 99.9 115 22 137/97 (110) 97 11/01/18 07:35 109 11/01/18 07:25 99 16 100 Mechanical Ventilator 40 11/01/18 07:15 101 20 100 Mechanical Ventilator 40 11/01/18 07:13 99 21 40 7/17/19 05:14 101 20 40 11/01/18 04:00 99.1 100 21 145/87 (106) 98 11/01/18 04:00 100 11/01/18 04:00 40 11/01/18 04:00 Mechanical Ventilator 11/01/18 03:17 91 16 40 11/01/18 01:51 98.8 11/01/18 01:51 98.8 11/01/18 01:21 99.5 11/01/18 01:14 97 16 99 Mechanical Ventilator 40 11/01/18 00:58 88 16 100 Mechanical Ventilator 40 11/01/18 00:58 88 16 40 11/01/18 00:00 Mechanical Ventilator 11/01/18 00:00 98.8 85 16 125/76 (92) 98 11/01/18 00:00 40 10/31/18 23:20 86 10/31/18 23:01 85 16 40 10/31/18 20:40 83 16 40 10/31/18 20:38 82 17 98 Mechanical Ventilator 40 10/31/18 20:23 89 16 100 Mechanical Ventilator 40 10/31/18 20:12 96 135/80 10/31/18 20:09 98 16 40 10/31/18 20:00 Mechanical Ventilator 10/31/18 20:00 40 10/31/18 20:00 97 10/31/18 20:00 98.4 99 16 135/80 (98) 97 10/31/18 16:56 93 16 40 10/31/18 16:00 98.9 96 17 135/80 (98) 100 10/31/18 16:00 Mechanical Ventilator 10/31/18 16:00 40 10/31/18 15:24 93 10/31/18 14:45 90 16 40 10/31/18 13:15 83 17 40 Height (Feet): 5 Height (Inches): 1.00 Weight (Pounds): 120 Objective Objective Narrative Gen: Not responsive, On Vent HEENT: NCAT, MMM, PERRL, left face ulceration, Left ear ulceration NECK: supple, No LAD, No JVD, Trach ( No E/P) LUNGS: CTAB, No W/C, No Accessory muscle use CARDS: RRR, S1, S2, No M/R/G, ABD: Soft, NT, ND, No R/G, + BS, No HSM, No Masses, PED ( No E/P) : Deferred Ext: C/C/E, Pulses 2+ B/L (DP, Rad) NEURO: Not responsive, No spont movements SKIN: Warm/dry, No rashes, Unstagable Decubs Necrotic tissue Microbiology Date/Time Source Procedure Growth Status 10/31/18 05:30 Sputum Gram Stain - Final Resulted 10/31/18 05:30 Sputum Culture - Preliminary Gram Negative Edouard Resulted Laboratory Tests Test 11/01/18 11:00 Vancomycin Level Trough 3.3 ug/mL (5.0-12.0) L Current Medications Medications (Trade) Dose Ordered Sig/Reginaldo Route PRN Reason Start Time Stop Time Status Last Admin Dose Admin Acetaminophen (Tylenol) 650 mg Q4H PRN GT Mild Pain/Temp > 100.5 10/28/18 05:00 11/27/18 04:59 11/01/18 01:21 Albuterol/ Ipratropium (Albuterol/ Ipratropium) 3 ml Q3H PRN N Shortness of Breath 10/28/18 05:00 11/02/18 04:59 Albuterol/ Ipratropium (Albuterol/ Ipratropium) 3 ml Q6HRT HHN 11/01/18 01:00 11/02/18 06:59 11/01/18 07:15 Artificial Tears (Akwa-Tears) 1 drop TID BOTH EYES 10/28/18 09:00 11/27/18 08:59 11/01/18 12:12 Ascorbic Acid (Vitamin C) 250 mg TWICE A DAY ORAL 10/30/18 18:00 11/29/18 17:59 11/01/18 08:43 Digoxin (Lanoxin) 0.25 mg DAILY ORAL 10/29/18 09:00 11/28/18 08:59 11/01/18 08:44 Docusate Sodium (Colace) 100 mg DAILY GT 10/28/18 09:00 11/27/18 08:59 11/01/18 08:43 Lactobacillus Acidophilus (Culturelle) 1 tab DAILY GT 10/28/18 09:00 11/27/18 08:59 11/01/18 08:44 Lansoprazole (Prevacid) 30 mg BID GT 10/28/18 09:00 11/27/18 08:59 11/01/18 08:44 Levothyroxine Sodium (Synthroid) 75 mcg DAILY@0630 GT 10/28/18 06:30 11/27/18 06:29 11/01/18 05:30 Losartan Potassium (Cozaar) 12.5 mg DAILY GT 10/28/18 09:00 11/27/18 08:59 11/01/18 08:43 Magnesium Hydroxide (Mom) 30 ml HSPRN PRN GT Constipation 10/28/18 05:00 11/27/18 04:59 Metoclopramide HCl (Reglan) 10 mg Q6HR IVP 10/29/18 16:21 11/28/18 16:20 11/01/18 12:12 Metoprolol Tartrate (Lopressor) 5 mg Q1H PRN IVP spb more than 120 10/28/18 12:45 11/27/18 12:44 10/29/18 06:55 Metoprolol Tartrate (Lopressor) 50 mg Q12HR GT 10/28/18 21:00 11/27/18 20:59 11/01/18 08:44 Ondansetron HCl (Zofran) 4 mg Q4H PRN IVP Nausea & Vomiting 10/28/18 05:00 11/27/18 04:59 10/29/18 21:36 Piperacillin Sod/ Tazobactam Sod 3.375 gm/Sodium Chloride 110 ml @ 27.5 mls/hr EVERY 8 HOURS IVPB 10/29/18 14:00 11/03/18 13:59 11/01/18 05:30 Vancomycin HCl (Vanco rx to dose) 1 ea DAILY PRN MISC Per rx protocol 10/29/18 09:45 11/28/18 09:44 Vancomycin HCl 750 mg/Sodium Chloride 275 ml @ 183.333 mls/hr Q12HR@0000,1200 IVPB 11/01/18 12:00 11/06/18 11:59 11/01/18 12:13 Zinc Sulfate (Zinc Sulfate) 220 mg DAILY ORAL 10/31/18 09:00 11/10/18 08:59 11/01/18 08:43 Shauna Bobo M.D. Nov 01, 2018 13:02
--- NOTE | 2018-11-01 15:29 | NUR ---
RD ASSESSMENT & RECOMMENDATIONS SEE CARE ACTIVITY FOR COMPLETE ASSESSMENT DAILY ESTIMATED NEEDS: Needs based on Critical care, wound 45.5kg 25-30 kcals/kg 9292-4454 total kcals 1.5-2 g protein/kg 68-91 g total protein 25-30 mL/kg 8762-6407 total fluid mLs NUTRITION DIAGNOSIS: 1) Increased kcal and pro needs r/t wound healing as evidenced by pt w/ sacral wound stage 4, s/p excisional debridement, w/ L ear + L mandible ulcer. 2) Swallowing difficulty r/t respiratory status as evidenced by pt is trach and PEG dep. CURRENT TF:Glucerna 1.2 @65ml/hr x20 hrs + Prostat/ prosource ENTERAL NUTRITION RECOMMENDATIONS: Maintain current TF order of Glucerna 1.2 @65ml/hr x20 hrs + PS x1 to provide 1300ml, 1560 kcal, 78g + 11g pro, 1047ml free H2O - Maintain current TF as tolerated -> CONT TO INCREASE TF 10ML Q 4-6 HRS TOLERATED TO GOAL -> Provides 100% est needs at goal - Flush per MD. HOB over 30 degrees. ADDITIONAL RECOMMENDATIONS: 1) Monitor weight daily 2) Wound care: Add DAINA BID : Continue Vit C and ZnSO4 3) Check lytes daily, replete as needed (low K and mag) 4) Hypoglycemics/ niss for glycemic control .
[2018-11-01] MEDS ORDERED: NS 275ml ONE (15:36)
--- NOTE | 2018-11-01 15:36 | NUR ---
NURSE NOTES:WOUND CARE FOLLOW-UP NOTES: S/P excisional debridement of sacral wound. moderate amt of sanguineous exudate noted to drsg upon removal. Small amt sanguineous exudate noted during drsg change. Base of wound is more viable with clot noted at base of wound clockwise 6-8.periwound dark without erythema or induration. No odor noted. Wound provided . Wound cleansed with saline. Hydrogel impregnated Kerlix packing applied ,covered with ABD pad and secured with paper tape. Pt positioned on R side with pillow. Both heels are off-loaded with pillow. Dry scabs noted to L mandible . Wound L trachea resolving . base of wound pink and dry wirt scabbed area also noted. No new skin concerns noted. ++++++++++++++++++++++++++++++++++++++++++++++++++++++++++++++++++++++++++++++++++++++++++++ ++++++++++++++++++++++++++++++++++++++++++++++++++++++++++++++++++++++++++++++++++++++++++++ ++++++++++++++++++++++++++++++++++++++++++++++++++++++++++++++++++++++++++++++++++++++++++++ ++++++++++++++++++++++++++++++++++++++++++++++++++++++++++++++++++++++++++++++++
[2018-11-01 16:00] VITALS: BP 145/82
--- NOTE | 2018-11-01 16:05 | Surgery Progress Note ---
Surgery Progress Note Subjective Procedure Performed excisional debridement of sacral decubitus ulcer Symptoms: other Objective Last 24 Hour Vital Signs Date Time Temp Pulse Resp B/P (MAP) Pulse Ox O2 Delivery O2 Flow Rate FiO2 11/01/18 15:41 91 18 40 11/01/18 13:26 82 16 99 Mechanical Ventilator 40 11/01/18 13:17 74 17 40 11/01/18 13:16 79 20 98 Mechanical Ventilator 40 11/01/18 12:00 Mechanical Ventilator 11/01/18 12:00 97.3 73 16 115/63 (80) 96 11/01/18 12:00 40 11/01/18 11:16 74 16 40 11/01/18 09:20 82 20 40 11/01/18 08:44 115 137/97 11/01/18 08:44 115 11/01/18 08:43 137/97 11/01/18 08:00 40 11/01/18 08:00 Mechanical Ventilator 11/01/18 08:00 99.9 115 22 137/97 (110) 97 11/01/18 07:35 109 11/01/18 07:25 99 16 100 Mechanical Ventilator 40 11/01/18 07:15 101 20 100 Mechanical Ventilator 40 11/01/18 07:13 99 21 40 11/01/18 05:14 101 20 40 11/01/18 04:00 99.1 100 21 145/87 (106) 98 11/01/18 04:00 100 11/01/18 04:00 40 11/01/18 04:00 Mechanical Ventilator 11/01/18 03:17 91 16 40 11/01/18 01:51 98.8 11/01/18 01:51 98.8 11/01/18 01:21 99.5 11/01/18 01:14 97 16 99 Mechanical Ventilator 40 11/01/18 00:58 88 16 100 Mechanical Ventilator 40 11/01/18 00:58 88 16 40 11/01/18 00:00 Mechanical Ventilator 11/01/18 00:00 98.8 85 16 125/76 (92) 98 11/01/18 00:00 40 10/31/18 23:20 86 10/31/18 23:01 85 16 40 10/31/18 20:40 83 16 40 10/31/18 20:38 82 17 98 Mechanical Ventilator 40 10/31/18 20:23 89 16 100 Mechanical Ventilator 40 10/31/18 20:12 96 135/80 10/31/18 20:09 98 16 40 10/31/18 20:00 Mechanical Ventilator 10/31/18 20:00 40 10/31/18 20:00 97 10/31/18 20:00 98.4 99 16 135/80 (98) 97 10/31/18 16:56 93 16 40 I&O Intake and Output 10/31/18 11/01/18 19:00 07:00 Intake Total 1389.166 ml 425.0 ml Output Total 750 ml 500 ml Balance 639.166 ml -75.0 ml Intake Free Water 70 ml 30 ml IV Total 959.166 ml 110.0 ml Tube Feeding 360 ml 285 ml Output Urine Total 750 ml 500 ml # Bowel Movements 3 4 Dressing: saturated Wound: clean Cardiovascular: RSR Respiratory: clear, decreased breath sounds Abdomen: soft, present bowel sounds, non-distended Extremities: no cyanosis Laboratory Tests Test 11/01/18 11:00 Vancomycin Level Trough 3.3 ug/mL (5.0-12.0) L Assessment Post-op Diagnosis stage 4 sacral decubitus ulcer Plan Problems: (1) Sepsis Assessment & Plan: 72 year old female presented with sepsis. hypotension, tachycardic, leukocytosis. currently in [facility] under good care labs improving on iv abx responding to fluids cont with current care trend labs will follow with recs (2) ATN (acute tubular necrosis) (3) Respiratory failure, acute and chronic (4) Anemia, chronic disease (5) Dehydration Assessment & Plan: DAILY ESTIMATED NEEDS: Needs based on Critical care, wound 45.5kg 25-30 kcals/kg 6301-1782 total kcals 1.25-2 g protein/kg 57-91 g total protein 25-30 mL/kg 5437-7271 total fluid mLs NUTRITION DIAGNOSIS: 1) Increased kcal and pro needs r/t wound healing as evidenced by pt w/ unstageable sacral wound, w/ L ear + L mandible ulcer. 2) Swallowing difficulty r/t respiratory status as evidenced by pt is trach and PEG dep. CURRENT TF: Glucerna 1.2 @65ml/hr x20 hrs + Prostat/ prosource x1 daily ENTERAL NUTRITION RECOMMENDATIONS: Maintain current TF order of Glucerna 1.2 @65ml/hr x20 hrs + PS x1 to provide 1300ml, 1560 kcal, 78g + 11g pro, 1047ml free H2O - Maintain current TF as tolerated, provides 100% est needs - Flush per MD. HOB over 30 degrees. 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 S/P excisional debridement of sacral wound. moderate amt of sanguineous exudate noted to drsg upon removal. Small amt sanguineous exudate noted during drsg change. Base of wound is more viable with clot noted at base of wound clockwise 6-8.periwound dark without erythema or induration. No odor noted. Wound provided . Wound cleansed with saline. Hydrogel impregnated Kerlix packing applied ,covered with ABD pad and secured with paper tape. Pt positioned on R side with pillow. Both heels are off-loaded with pillow. Dry scabs noted to L mandible . Wound L trachea resolving . base of wound pink and dry wirt scabbed area also noted. No new skin concerns noted. Emory Tran Nov 01, 2018 16:05
[2018-11-01] MEDS: Ascorbic Acid 500mg tab GT SCH (17:22)
--- NOTE | 2018-11-01 17:44 | NUR ---
NURSE NOTES: attempted to call radiology dept regarding CXR 1V for his patient. not picking up. will attempt again later.
--- NOTE | 2018-11-01 19:26 | NUR ---
HAND-OFF: Report given to nkiunj blackwood.
--- NOTE | 2018-11-01 19:27 | NUR ---
NURSE NOTES: Received patient from Keyana RN, patient is obtunded. Receiving oxygen via trach to vent: Portex 7, AC 16, TV 500, FIO2 40%, PEEP 5. G-tube is patent and receiving Glucerna 1.2 at 30cc/hr, patient is tolerating well, no residuals. IV site is right hand 22g and right upper arm 24g, both IV sites are patent and asymptomatic. Bed is locked, placed in lowest position, side rails up x3, bed alarm on. Will continue to monitor.
[2018-11-01 20:00] VITALS: BP 138/78
[2018-11-02] VITALS: BP 129/77
[2018-11-02] MEDS: Albuterol/Ipratropium 3ml neb HHN SCH (01:17)
--- NOTE | 2018-11-02 03:30 | Progress Note ---
DATE: 11/01/2018 NOTE: POOR AUDIO. SUBJECTIVE: The patient is awake, alert, afebrile, and hemodynamically stable. Her eyes are open . PHYSICAL EXAMINATION: VITAL SIGNS: Blood pressure 138/78, pulse 108, respirations are 26, and temperature 99.0. HEENT: Eyes were normal. ENT, mucous membranes were moist and intact. NECK: Supple with no JVD without lymph nodes. Tracheostomy site is clean. LUNGS: Clear without rhonchi, rales, or wheezing. Secretions are small, thin, and duval. HEART: Normal sounds with regular beats. There is no S3, S4, or pericardial rub. ABDOMEN: Soft and nontender with normal bowel sounds. Gastrostomy site is clean. EXTREMITIES: Warm without cyanosis, clubbing, or edema. Family requested to have meeting regarding the plan of care, but in reality nothing available to discuss with the family in my office in [place] with rearrangement. LABORATORY AND DIAGNOSTIC DATA: Hemoglobin 6.7, hematocrit 21.4 with MCV of 94, WBC of 8.8, and platelets of 267. These are the values prior to the transfusion of 2 units of packed RBCs. Her BUN and creatinine are 17 and 0.5 respectively. Her sodium is 145. Potassium 2.7, chloride 108, CO2 is 21. The patient will receive 2 units of packed RBCs and potassium 40 mEq via G-tube. x-ray was taken on 11/01/2018. IMPRESSION: Repeat laboratory tests will be done in the a.m. Repeat chest x-ray will be done as well. The patient is afebrile and hemodynamically stable antibiotic. Che Frias M.D. DR: FRANK JOB#: [id number] CC:
[2018-11-02 04:00] VITALS: BP 139/90
[2018-11-02 05:01] LABS: HEMATOCRIT 23.9 % (37.0-47.0); HEMOGLOBIN 7.5 G/DL (12.0-16.0); MEAN CORPUSCULAR VOLUME 94 FL (80-99); PLATELET COUNT 217 K/UL (150-450); RED BLOOD COUNT 2.54 M/UL (4.20-5.40); RED CELL DISTRIBUTION WIDTH 17.1 % (11.6-14.8)
[2018-11-02 05:02] LABS: ANION GAP 8 mmol/L (5-15); BLOOD UREA NITROGEN 13 mg/dL (7-18); CALCIUM 8.6 MG/DL (8.5-10.1); CARBON DIOXIDE 30 MMOL/L (21-32); CHLORIDE 111 MMOL/L (98-107); CREATININE 0.4 MG/DL (0.55-1.30); POTASSIUM 2.8 MMOL/L (3.5-5.1); SODIUM 148 MMOL/L (136-145)
[2018-11-02] MEDS: Metoclopramide 10mg/2ml Inj IVP SCH ×3 (05:53→17:48)
[2018-11-02] MEDS: Piperacillin/Tazobactam 3.375 GM in NS 110 ML IVPB SCH ×3 (05:54→21:20)
--- NOTE | 2018-11-02 07:00 | NUR ---
RESPIRATORY NOTE: pt recieved on AC vent mode no SOB or discomfort noted HHN tx given sx PRN trach intact, sat is 100%,will continue to monitor the pt.
--- NOTE | 2018-11-02 07:15 | NUR ---
HAND-OFF: Report given to Ashleigh GODFREY.
--- NOTE | 2018-11-02 07:40 | NUR ---
NURSE NOTES: Received report from Flower Narvaez RN. Patient awake in bed, obtunded, unable to make needs known and follow commands. Trach to vent with settings of AC 16, TV 500, FiO2 40%, PEEP 5, respirations even and unlabored. GT feeding of Glucerna 1.2 on hold until 08:00. Ellis catheter patent and draining well. Right hand 22g and right upper arm 24g saline locks intact and asymptomatic. Bed locked in lowest position with side rails up x 3. All needs attended to. Will continue to monitor.
[2018-11-02 08:00] VITALS: BP 134/81
[2018-11-02] MEDS: Metoprolol Tartrate 50mg tab GT SCH ×2 (09:17→21:21)
[2018-11-02] MEDS: Lactobacillus-GG tablet GT SCH (09:17)
[2018-11-02] MEDS: Zinc Sulfate 220mg cap GT SCH (09:17)
[2018-11-02] MEDS: Docusate 100mg/10ml Liq GT SCH (09:17)
[2018-11-02] MEDS: Artificial Tears 1.4% Op Soln BOTH EYES SCH ×3 (09:17→17:49)
[2018-11-02] MEDS: Ascorbic Acid 500mg tab GT SCH ×2 (09:18→17:51)
[2018-11-02] MEDS: Losartan 25mg tab GT SCH (09:18)
--- NOTE | 2018-11-02 10:12 | NUR ---
SECOND RIGGERCRISIS MANAGER SI:SEPSIS VS: BP 134/81, P 80, T 98.8, RR 24, SpO2 96 WBC 11.0, RBC 2.54, H&H 7.5/23.9, NA 148, K 2.8, CR 0.4 IS:COZAAR 12.5mg PREVACID 30mg LOPRESSOR 50mg DIGOXIN 0.25mg K-DUR 40meq SYNTHROID 75mcg ZOSYN 110ml IVPB ALBUTEROL 3ml HHN PLAN: EXCISIONAL DEBRIDEMENT OF SACRAL DECUBITUS ULCER IV ABX SDU STATUS
[2018-11-02] MEDS: Acetaminophen 650mg/20.3ml GT PRN (10:24)
[2018-11-02 12:00] VITALS: BP 149/99
--- NOTE | 2018-11-02 12:00 | NUR ---
NURSE NOTES: Patient noted with fever of 100.0. PRN Tylenol already given at 10:24. Cooling measures placed. Will continue to monitor.
--- NOTE | 2018-11-02 13:49 | Infectious Diseases Prog Note ---
Assessment/Plan Assessment/Plan Assessment/Plan: Ms. Danielle is a 72 yo female with PMHx of head and neck cancer, S/P trach, vent dependent, Dysphagia s/p PEG and Encephalopathy who was sent to the ED from her [facility] on 10/28/18 for hypotension. She is not verbal so history was obtained from the chart. In the ED she was febrile up to 102. Had WBCs of 12. She also had Afib RVR. CXR shows Pneumonitis. She was also noted to have pressures ulcer on her bottom and left face. Sepsis PNA CXR possible Pneumonitis sp cx GNR Leukocytosis up to 13; mild recurent Fever up to 102; improving UA (-); ucx Rema Gram negative bacteremia -10/28 Bcx 1/4 GNR; 11/01 Bcx p Head and neck cancer S/P trach Vent dependent Dysphagia s/p PEG Encephalopathy PLAN - Cont empiric Zosyn #5 pending Sp and blood cx -11/01 SP IV Vancomycin #4 - 10/29/18 S/P Cefepime #1 and Levofloxacin - f/u Cultures - wound care - f/u surgery recs for debridement - Monitor CBC and Temps -f/u sp cx, repaet Bcx x2 -f/u CXR Thank you for this consult. We will continue to follow the patient during this hospitalization. Subjective Allergies: Coded Allergies: No Known Allergies (Unverified , 10/28/18) Subjective Tm 101.8 mild leukocytosis bacteremic GNR; repeat bcx p Objective Vital Signs Last 24 Hour Vital Signs Date Time Temp Pulse Resp B/P (MAP) Pulse Ox O2 Delivery O2 Flow Rate FiO2 11/02/18 12:00 40 11/02/18 12:00 100.0 88 24 149/99 (116) 96 11/02/18 12:00 Mechanical Ventilator 11/02/18 11:40 88 11/02/18 11:01 87 24 40 11/02/18 09:18 134/81 11/02/18 09:17 81 11/02/18 09:17 81 134/81 11/02/18 09:05 87 16 40 11/02/18 08:00 98.8 81 16 134/81 (98) 96 11/02/18 08:00 40 11/02/18 08:00 Mechanical Ventilator 11/02/18 07:44 80 11/02/18 07:10 83 24 97 Mechanical Ventilator 40 11/02/18 07:10 83 24 97 Mechanical Ventilator 40 11/02/18 07:10 84 16 40 11/02/18 05:21 85 16 40 11/02/18 04:00 40 11/02/18 04:00 Mechanical Ventilator 11/02/18 04:00 98.8 85 17 139/90 (106) 95 11/02/18 03:44 83 11/02/18 03:29 85 16 40 11/02/18 01:45 84 17 97 Mechanical Ventilator 40 11/02/18 01:19 72 16 40 11/02/18 01:18 78 26 98 Mechanical Ventilator 40 11/02/18 01:08 72 16 96 Mechanical Ventilator 40 11/02/18 00:00 Mechanical Ventilator 11/02/18 00:00 98.6 75 16 129/77 (94) 97 11/01/18 23:30 77 11/01/18 23:20 76 16 40 11/01/18 21:27 78 20 40 11/01/18 20:37 99 148/78 11/01/18 20:14 100 11/01/18 20:00 99.0 100 24 138/78 (98) 100 11/01/18 20:00 40 11/01/18 20:00 Mechanical Ventilator 11/01/18 19:19 108 26 98 Mechanical Ventilator 40 11/01/18 19:12 104 26 40 11/01/18 19:09 104 26 96 Mechanical Ventilator 40 11/01/18 17:57 99.3 11/01/18 17:25 84 16 40 11/01/18 16:00 101.8 84 16 145/82 (103) 97 11/01/18 16:00 Mechanical Ventilator 11/01/18 16:00 91 11/01/18 16:00 40 11/01/18 15:41 91 18 40 11/01/18 15:10 91 Height (Feet): 5 Height (Inches): 1.00 Weight (Pounds): 120 Objective Objective Narrative Gen: Not responsive, On Vent HEENT: NCAT, MMM, PERRL, left face ulceration, Left ear ulceration NECK: supple, No LAD, No JVD, Trach ( No E/P) LUNGS: CTAB, No W/C, No Accessory muscle use CARDS: RRR, S1, S2, No M/R/G, ABD: Soft, NT, ND, No R/G, + BS, No HSM, No Masses, PED ( No E/P) : Deferred Ext: C/C/E, Pulses 2+ B/L (DP, Rad) NEURO: Not responsive, No spont movements SKIN: Warm/dry, No rashes, Unstagable Decubs Necrotic tissue Microbiology Date/Time Source Procedure Growth Status 10/31/18 05:30 Sputum Gram Stain - Final Resulted 10/31/18 05:30 Sputum Culture - Preliminary Gram Negative Edouard Resulted Laboratory Tests Test 11/02/18 03:00 White Blood Count 11.0 K/UL (4.8-10.8) H Red Blood Count 2.54 M/UL (4.20-5.40) L Hemoglobin 7.5 G/DL (12.0-16.0) L Hematocrit 23.9 % (37.0-47.0) L Mean Corpuscular Volume 94 FL (80-99) Mean Corpuscular Hemoglobin 29.6 PG (27.0-31.0) Mean Corpuscular Hemoglobin Concent 31.4 G/DL (32.0-36.0) L Red Cell Distribution Width 17.1 % (11.6-14.8) H Platelet Count 217 K/UL (150-450) Mean Platelet Volume 5.8 FL (6.5-10.1) L Neutrophils (%) (Auto) % (45.0-75.0) Lymphocytes (%) (Auto) % (20.0-45.0) Monocytes (%) (Auto) % (1.0-10.0) Eosinophils (%) (Auto) % (0.0-3.0) Basophils (%) (Auto) % (0.0-2.0) Differential Total Cells Counted 100 Neutrophils % (Manual) 86 % (45-75) H Lymphocytes % (Manual) 8 % (20-45) L Monocytes % (Manual) 6 % (1-10) Eosinophils % (Manual) 0 % (0-3) Basophils % (Manual) 0 % (0-2) Band Neutrophils 0 % (0-8) Platelet Estimate Adequate Platelet Morphology Normal Hypochromasia 3+ Anisocytosis 1+ Sodium Level 148 MMOL/L (136-145) H Potassium Level 2.8 MMOL/L (3.5-5.1) L Chloride Level 111 MMOL/L (98-107) H Carbon Dioxide Level 30 MMOL/L (21-32) Anion Gap 8 mmol/L (5-15) Blood Urea Nitrogen 13 mg/dL (7-18) Creatinine 0.4 MG/DL (0.55-1.30) L Estimat Glomerular Filtration Rate mL/min (>60) Glucose Level 136 MG/DL (74-106) H Calcium Level 8.6 MG/DL (8.5-10.1) Current Medications Medications (Trade) Dose Ordered Sig/Reginaldo Route PRN Reason Start Time Stop Time Status Last Admin Dose Admin Acetaminophen (Tylenol) 650 mg Q4H PRN GT Mild Pain/Temp > 100.5 10/28/18 05:00 11/27/18 04:59 11/02/18 10:24 Artificial Tears (Akwa-Tears) 1 drop TID BOTH EYES 10/28/18 09:00 11/27/18 08:59 11/02/18 12:38 Ascorbic Acid (Vitamin C) 250 mg TWICE A DAY GT 11/01/18 18:00 11/29/18 17:59 11/02/18 09:18 Digoxin (Lanoxin) 0.25 mg DAILY GT 11/02/18 09:00 11/28/18 08:59 11/02/18 09:17 Docusate Sodium (Colace) 100 mg DAILY GT 10/28/18 09:00 11/27/18 08:59 11/02/18 09:17 Lactobacillus Acidophilus (Culturelle) 1 tab DAILY GT 10/28/18 09:00 11/27/18 08:59 11/02/18 09:17 Lansoprazole (Prevacid) 30 mg BID GT 10/28/18 09:00 11/27/18 08:59 11/02/18 09:17 Levothyroxine Sodium (Synthroid) 75 mcg DAILY@0630 GT 10/28/18 06:30 11/27/18 06:29 11/02/18 05:54 Losartan Potassium (Cozaar) 12.5 mg DAILY GT 10/28/18 09:00 11/27/18 08:59 11/02/18 09:18 Magnesium Hydroxide (Mom) 30 ml HSPRN PRN GT Constipation 10/28/18 05:00 11/27/18 04:59 Metoclopramide HCl (Reglan) 10 mg Q6HR IVP 10/29/18 16:21 11/28/18 16:20 11/02/18 12:38 Metoprolol Tartrate (Lopressor) 5 mg Q1H PRN IVP spb more than 120 10/28/18 12:45 11/27/18 12:44 10/29/18 06:55 Metoprolol Tartrate (Lopressor) 50 mg Q12HR GT 10/28/18 21:00 11/27/18 20:59 11/02/18 09:17 Ondansetron HCl (Zofran) 4 mg Q4H PRN IVP Nausea & Vomiting 10/28/18 05:00 11/27/18 04:59 10/29/18 21:36 Piperacillin Sod/ Tazobactam Sod 3.375 gm/Sodium Chloride 110 ml @ 27.5 mls/hr EVERY 8 HOURS IVPB 10/29/18 14:00 11/03/18 13:59 11/02/18 05:54 Zinc Sulfate (Zinc Sulfate) 220 mg DAILY GT 11/02/18 09:00 11/10/18 08:59 11/02/18 09:17 Shauna Bobo M.D. Nov 02, 2018 13:49
--- NOTE | 2018-11-02 14:01 | Diagnostic Imaging Report ---
Indication: Cough Comparison: 10/29/2018 A single view chest radiograph was obtained. Findings: Patchy interstitial densities are demonstrated throughout the lung reddy bilaterally. The findings appear relatively stable. It is difficult to completely exclude acute disease although the findings in retrospect may be largely chronic. Bones are osteopenic. Mild cardiomegaly noted. Mild thickening of the easily Versus small pleural effusions. IMPRESSION: No significant change from the last study. Acuity indeterminant interstitial opacities within the lungs. Small basilar effusions versus pleural thickening
--- NOTE | 2018-11-02 15:40 | Surgery Progress Note ---
Surgery Progress Note Subjective Procedure Performed excisional debridement of sacral decubitus ulcer Symptoms: other Objective Last 24 Hour Vital Signs Date Time Temp Pulse Resp B/P (MAP) Pulse Ox O2 Delivery O2 Flow Rate FiO2 11/02/18 12:45 89 23 40 11/02/18 12:00 40 11/02/18 12:00 100.0 88 24 149/99 (116) 96 11/02/18 12:00 Mechanical Ventilator 11/02/18 11:40 88 11/02/18 11:01 87 24 40 11/02/18 09:18 134/81 11/02/18 09:17 81 11/02/18 09:17 81 134/81 11/02/18 09:05 87 16 40 11/02/18 08:00 98.8 81 16 134/81 (98) 96 11/02/18 08:00 40 11/02/18 08:00 Mechanical Ventilator 11/02/18 07:44 80 11/02/18 07:10 83 24 97 Mechanical Ventilator 40 11/02/18 07:10 83 24 97 Mechanical Ventilator 40 11/02/18 07:10 84 16 40 11/02/18 05:21 85 16 40 11/02/18 04:00 40 11/02/18 04:00 Mechanical Ventilator 11/02/18 04:00 98.8 85 17 139/90 (106) 95 11/02/18 03:44 83 11/02/18 03:29 85 16 40 11/02/18 01:45 84 17 97 Mechanical Ventilator 40 11/02/18 01:19 72 16 40 11/02/18 01:18 78 26 98 Mechanical Ventilator 40 11/02/18 01:08 72 16 96 Mechanical Ventilator 40 11/02/18 00:00 Mechanical Ventilator 11/02/18 00:00 98.6 75 16 129/77 (94) 97 11/01/18 23:30 77 11/01/18 23:20 76 16 40 11/01/18 21:27 78 20 40 11/01/18 20:37 99 148/78 11/01/18 20:14 100 11/01/18 20:00 99.0 100 24 138/78 (98) 100 11/01/18 20:00 40 11/01/18 20:00 Mechanical Ventilator 11/01/18 19:19 108 26 98 Mechanical Ventilator 40 11/01/18 19:12 104 26 40 11/01/18 19:09 104 26 96 Mechanical Ventilator 40 11/01/18 17:57 99.3 11/01/18 17:25 84 16 40 11/01/18 16:00 101.8 84 16 145/82 (103) 97 11/01/18 16:00 Mechanical Ventilator 11/01/18 16:00 91 11/01/18 16:00 40 11/01/18 15:41 91 18 40 I&O Intake and Output 11/01/18 11/02/18 19:00 07:00 Intake Total 440 ml 407.500 ml Output Total 300 ml Balance 440 ml 107.500 ml Intake Free Water 110 ml IV Total 137.500 ml Tube Feeding 330 ml 270 ml Output Urine Total 300 ml # Bowel Movements 3 2 Dressing: saturated Wound: clean Cardiovascular: RSR Respiratory: clear Abdomen: soft, present bowel sounds Extremities: no cyanosis Laboratory Tests Test 11/02/18 03:00 White Blood Count 11.0 K/UL (4.8-10.8) H Red Blood Count 2.54 M/UL (4.20-5.40) L Hemoglobin 7.5 G/DL (12.0-16.0) L Hematocrit 23.9 % (37.0-47.0) L Mean Corpuscular Volume 94 FL (80-99) Mean Corpuscular Hemoglobin 29.6 PG (27.0-31.0) Mean Corpuscular Hemoglobin Concent 31.4 G/DL (32.0-36.0) L Red Cell Distribution Width 17.1 % (11.6-14.8) H Platelet Count 217 K/UL (150-450) Mean Platelet Volume 5.8 FL (6.5-10.1) L Neutrophils (%) (Auto) % (45.0-75.0) Lymphocytes (%) (Auto) % (20.0-45.0) Monocytes (%) (Auto) % (1.0-10.0) Eosinophils (%) (Auto) % (0.0-3.0) Basophils (%) (Auto) % (0.0-2.0) Differential Total Cells Counted 100 Neutrophils % (Manual) 86 % (45-75) H Lymphocytes % (Manual) 8 % (20-45) L Monocytes % (Manual) 6 % (1-10) Eosinophils % (Manual) 0 % (0-3) Basophils % (Manual) 0 % (0-2) Band Neutrophils 0 % (0-8) Platelet Estimate Adequate Platelet Morphology Normal Hypochromasia 3+ Anisocytosis 1+ Sodium Level 148 MMOL/L (136-145) H Potassium Level 2.8 MMOL/L (3.5-5.1) L Chloride Level 111 MMOL/L (98-107) H Carbon Dioxide Level 30 MMOL/L (21-32) Anion Gap 8 mmol/L (5-15) Blood Urea Nitrogen 13 mg/dL (7-18) Creatinine 0.4 MG/DL (0.55-1.30) L Estimat Glomerular Filtration Rate mL/min (>60) Glucose Level 136 MG/DL (74-106) H Calcium Level 8.6 MG/DL (8.5-10.1) Assessment Post-op Diagnosis stage 4 sacral decubitus ulcer Plan Problems: (1) Sepsis Assessment & Plan: 72 year old female presented with sepsis. hypotension, tachycardic, leukocytosis. currently in [facility] under good care labs improving on iv abx responding to fluids cont with current care trend labs will follow with recs (2) ATN (acute tubular necrosis) (3) Respiratory failure, acute and chronic (4) Anemia, chronic disease (5) Dehydration Assessment & Plan: DAILY ESTIMATED NEEDS: Needs based on Critical care, wound 45.5kg 25-30 kcals/kg 9447-4118 total kcals 1.25-2 g protein/kg 57-91 g total protein 25-30 mL/kg 0334-3959 total fluid mLs NUTRITION DIAGNOSIS: 1) Increased kcal and pro needs r/t wound healing as evidenced by pt w/ unstageable sacral wound, w/ L ear + L mandible ulcer. 2) Swallowing difficulty r/t respiratory status as evidenced by pt is trach and PEG dep. CURRENT TF: Glucerna 1.2 @65ml/hr x20 hrs + Prostat/ prosource x1 daily ENTERAL NUTRITION RECOMMENDATIONS: Maintain current TF order of Glucerna 1.2 @65ml/hr x20 hrs + PS x1 to provide 1300ml, 1560 kcal, 78g + 11g pro, 1047ml free H2O - Maintain current TF as tolerated, provides 100% est needs - Flush per MD. HOB over 30 degrees. 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 S/P excisional debridement of sacral wound. moderate amt of sanguineous exudate noted to drsg upon removal. Small amt sanguineous exudate noted during drsg change. Base of wound is more viable with clot noted at base of wound clockwise 6-8.periwound dark without erythema or induration. No odor noted. Wound provided . Wound cleansed with saline. Hydrogel impregnated Kerlix packing applied ,covered with ABD pad and secured with paper tape. Pt positioned on R side with pillow. Both heels are off-loaded with pillow. Dry scabs noted to L mandible . Wound L trachea resolving . base of wound pink and dry wirt scabbed area also noted. No new skin concerns noted. Emory Tran Nov 02, 2018 15:40
[2018-11-02 16:00] VITALS: BP 162/98
[2018-11-02] MEDS: Metoprolol 5mg/5ml Inj IVP PRN (16:07)
--- NOTE | 2018-11-02 16:33 | Pulmonolgy Critical Care Note ---
Critical Care - Asmt/Plan Problems: (1) Respiratory failure, acute and chronic (2) HCAP (healthcare-associated pneumonia) (3) Sepsis (4) ATN (acute tubular necrosis) (5) Atrial fibrillation (6) Anemia, chronic disease (7) Hypothyroidism (8) Neoplasm of esophagus, malignant (9) History of CHF (congestive heart failure) (10) Decubitus skin ulcer (11) History of sudden cardiac arrest Respiratory: monitor respiratory rate, adjust FIO2, CXR Cardiac: continue to monitor HR/BP Renal: check electrolytes Infectious Disease: check cultures Gastrointestinal: continue feedings/current rate, abdominal imaging Endocrine: monitor blood sugar Hematologic: monitor H/H Neurologic: PRN Morphine, keep patient comfortable Prophylaxis: Heparin 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 Critical Care - Objective Last 24 Hour Vital Signs Date Time Temp Pulse Resp B/P (MAP) Pulse Ox O2 Delivery O2 Flow Rate FiO2 11/02/18 16:07 74 162/98 11/02/18 14:35 82 20 40 11/02/18 12:45 89 23 40 11/02/18 12:00 40 11/02/18 12:00 100.0 88 24 149/99 (116) 96 11/02/18 12:00 Mechanical Ventilator 11/02/18 11:40 88 11/02/18 11:01 87 24 40 11/02/18 09:18 134/81 11/02/18 09:17 81 11/02/18 09:17 81 134/81 11/02/18 09:05 87 16 40 11/02/18 08:00 98.8 81 16 134/81 (98) 96 11/02/18 08:00 40 11/02/18 08:00 Mechanical Ventilator 11/02/18 07:44 80 11/02/18 07:10 83 24 97 Mechanical Ventilator 40 11/02/18 07:10 83 24 97 Mechanical Ventilator 40 11/02/18 07:10 84 16 40 11/02/18 05:21 85 16 40 11/02/18 04:00 40 11/02/18 04:00 Mechanical Ventilator 11/02/18 04:00 98.8 85 17 139/90 (106) 95 11/02/18 03:44 83 11/02/18 03:29 85 16 40 11/02/18 01:45 84 17 97 Mechanical Ventilator 40 11/02/18 01:19 72 16 40 11/02/18 01:18 78 26 98 Mechanical Ventilator 40 11/02/18 01:08 72 16 96 Mechanical Ventilator 40 11/02/18 00:00 Mechanical Ventilator 11/02/18 00:00 98.6 75 16 129/77 (94) 97 11/01/18 23:30 77 11/01/18 23:20 76 16 40 11/01/18 21:27 78 20 40 11/01/18 20:37 99 148/78 11/01/18 20:14 100 11/01/18 20:00 99.0 100 24 138/78 (98) 100 11/01/18 20:00 40 11/01/18 20:00 Mechanical Ventilator 11/01/18 19:19 108 26 98 Mechanical Ventilator 40 11/01/18 19:12 104 26 40 11/01/18 19:09 104 26 96 Mechanical Ventilator 40 11/01/18 17:57 99.3 11/01/18 17:25 84 16 40 Status: obtunded Condition: critical Neck: full ROM Abdomen: soft, feeding tube Micro: Microbiology Date/Time Source Procedure Growth Status 10/31/18 05:30 Sputum Gram Stain - Final Resulted 10/31/18 05:30 Sputum Culture - Preliminary Gram Negative Edouard Resulted Accucheck: 136 Critical Care - Subjective ROS Limited/Unobtainable: Yes Condition: critical EKG Rhythm: Sinus Rhythm FI02: 40 Vent Support Breath Rate: 16 Vent Support Mode: AC Vent Tidal Volume: 500 Sputum Amount: Small PEEP: 5.0 PIP: 36 I&O: Intake and Output 11/01/18 11/02/18 19:00 07:00 Intake Total 440 ml 407.500 ml Output Total 300 ml Balance 440 ml 107.500 ml Intake Free Water 110 ml IV Total 137.500 ml Tube Feeding 330 ml 270 ml Output Urine Total 300 ml # Bowel Movements 3 2 Labs: Laboratory Tests Test 11/02/18 03:00 White Blood Count 11.0 K/UL (4.8-10.8) H Red Blood Count 2.54 M/UL (4.20-5.40) L Hemoglobin 7.5 G/DL (12.0-16.0) L Hematocrit 23.9 % (37.0-47.0) L Mean Corpuscular Volume 94 FL (80-99) Mean Corpuscular Hemoglobin 29.6 PG (27.0-31.0) Mean Corpuscular Hemoglobin Concent 31.4 G/DL (32.0-36.0) L Red Cell Distribution Width 17.1 % (11.6-14.8) H Platelet Count 217 K/UL (150-450) Mean Platelet Volume 5.8 FL (6.5-10.1) L Neutrophils (%) (Auto) % (45.0-75.0) Lymphocytes (%) (Auto) % (20.0-45.0) Monocytes (%) (Auto) % (1.0-10.0) Eosinophils (%) (Auto) % (0.0-3.0) Basophils (%) (Auto) % (0.0-2.0) Differential Total Cells Counted 100 Neutrophils % (Manual) 86 % (45-75) H Lymphocytes % (Manual) 8 % (20-45) L Monocytes % (Manual) 6 % (1-10) Eosinophils % (Manual) 0 % (0-3) Basophils % (Manual) 0 % (0-2) Band Neutrophils 0 % (0-8) Platelet Estimate Adequate Platelet Morphology Normal Hypochromasia 3+ Anisocytosis 1+ Sodium Level 148 MMOL/L (136-145) H Potassium Level 2.8 MMOL/L (3.5-5.1) L Chloride Level 111 MMOL/L (98-107) H Carbon Dioxide Level 30 MMOL/L (21-32) Anion Gap 8 mmol/L (5-15) Blood Urea Nitrogen 13 mg/dL (7-18) Creatinine 0.4 MG/DL (0.55-1.30) L Estimat Glomerular Filtration Rate mL/min (>60) Glucose Level 136 MG/DL (74-106) H Calcium Level 8.6 MG/DL (8.5-10.1) Belem Brooke MD Nov 02, 2018 16:33
--- NOTE | 2018-11-02 19:17 | NUR ---
HAND-OFF: Report given to Sergio Mckeon RN.
--- NOTE | 2018-11-02 19:18 | NUR ---
NURSE NOTES: BEDSIDE REPORT RECEIVED FROM EPIFANIO MAHONEY. PT IS OBTUNDED, RESPONDS TO DEEP PAIN. 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 PT IS ON VENT P#7 AC 16 TV 500 FIO2 40 PEEP 5; SATING @ 100%. SKIN IS CLEAN, DRY, DRESSINGS INTACT. GTF GLU 1.2 @ 30; TOLERATING WELL. WALLS NOTED W/ CLEAR YELLOW OCCASIONAL SEDIMENT. RAC 18 ASYMPTOMATIC. BED IS LOCKED IN LOWEST POSITION, SR X3, CALL BECKWITH W/ IN REACH, BED ALARM ON. WILL CONTINUE TO MONITOR AND FOLLOW W/ PLAN OF CARE.
[2018-11-02 20:00] VITALS: BP 154/101
--- NOTE | 2018-11-02 20:18 | Cardiology Progress Note ---
Assessment/Plan Assessment/Plan 1. Paroxysmal atrial fibrillation, currently in SR. Continue metoprolol and digoxin. Keep K above 4.0 to avoid digoxin toxicity. 2. Ventilatory-drive respiratory failure, status post tracheostomy tube placement. 3. Dysphagia, status post PEG placement. 4. Head and neck cancer. 5. Hypothyroidism, on thyroid supplementation. 6. History of hypertension. 7. Electrolyte disturbance, keep K >4.0, Mg >2.5. Subjective Subjective Sinus rhythm at rate of 75. Objective Last 24 Hour Vital Signs Date Time Temp Pulse Resp B/P (MAP) Pulse Ox O2 Delivery O2 Flow Rate FiO2 11/02/18 19:22 75 16 40 11/02/18 17:25 78 20 40 11/02/18 16:07 74 162/98 11/02/18 16:00 86 11/02/18 16:00 Mechanical Ventilator 11/02/18 16:00 40 11/02/18 16:00 99.0 86 22 162/98 (119) 97 11/02/18 14:35 82 20 40 11/02/18 12:45 89 23 40 11/02/18 12:00 40 11/02/18 12:00 100.0 88 24 149/99 (116) 96 11/02/18 12:00 Mechanical Ventilator 11/02/18 11:40 88 11/02/18 11:01 87 24 40 11/02/18 09:18 134/81 11/02/18 09:17 81 11/02/18 09:17 81 134/81 11/02/18 09:05 87 16 40 11/02/18 08:00 98.8 81 16 134/81 (98) 96 11/02/18 08:00 40 11/02/18 08:00 Mechanical Ventilator 11/02/18 07:44 80 11/02/18 07:10 83 24 97 Mechanical Ventilator 40 11/02/18 07:10 83 24 97 Mechanical Ventilator 40 11/02/18 07:10 84 16 40 11/02/18 05:21 85 16 40 11/02/18 04:00 40 11/02/18 04:00 Mechanical Ventilator 11/02/18 04:00 98.8 85 17 139/90 (106) 95 11/02/18 03:44 83 11/02/18 03:29 85 16 40 11/02/18 01:45 84 17 97 Mechanical Ventilator 40 11/02/18 01:19 72 16 40 11/02/18 01:18 78 26 98 Mechanical Ventilator 40 11/02/18 01:08 72 16 96 Mechanical Ventilator 40 11/02/18 00:00 Mechanical Ventilator 11/02/18 00:00 98.6 75 16 129/77 (94) 97 11/01/18 23:30 77 11/01/18 23:20 76 16 40 11/01/18 21:27 78 20 40 11/01/18 20:37 99 148/78 Intake and Output 11/01/18 11/02/18 18:59 06:59 Intake Total 360 ml 487.500 ml Output Total 300 ml Balance 360 ml 187.500 ml Intake Free Water 60 ml 50 ml IV Total 137.500 ml Tube Feeding 300 ml 300 ml Output Urine Total 300 ml # Bowel Movements 3 2 2D Echo: LVEF 60%, Mild LVH, RADHA 1.9 cm2, Mod AR, RVSP 50 mmHg, Mild MR, Pleural Eff Laboratory Tests Test 11/02/18 03:00 White Blood Count 11.0 K/UL (4.8-10.8) H Red Blood Count 2.54 M/UL (4.20-5.40) L Hemoglobin 7.5 G/DL (12.0-16.0) L Hematocrit 23.9 % (37.0-47.0) L Mean Corpuscular Volume 94 FL (80-99) Mean Corpuscular Hemoglobin 29.6 PG (27.0-31.0) Mean Corpuscular Hemoglobin Concent 31.4 G/DL (32.0-36.0) L Red Cell Distribution Width 17.1 % (11.6-14.8) H Platelet Count 217 K/UL (150-450) Mean Platelet Volume 5.8 FL (6.5-10.1) L Neutrophils (%) (Auto) % (45.0-75.0) Lymphocytes (%) (Auto) % (20.0-45.0) Monocytes (%) (Auto) % (1.0-10.0) Eosinophils (%) (Auto) % (0.0-3.0) Basophils (%) (Auto) % (0.0-2.0) Differential Total Cells Counted 100 Neutrophils % (Manual) 86 % (45-75) H Lymphocytes % (Manual) 8 % (20-45) L Monocytes % (Manual) 6 % (1-10) Eosinophils % (Manual) 0 % (0-3) Basophils % (Manual) 0 % (0-2) Band Neutrophils 0 % (0-8) Platelet Estimate Adequate Platelet Morphology Normal Hypochromasia 3+ Anisocytosis 1+ Sodium Level 148 MMOL/L (136-145) H Potassium Level 2.8 MMOL/L (3.5-5.1) L Chloride Level 111 MMOL/L (98-107) H Carbon Dioxide Level 30 MMOL/L (21-32) Anion Gap 8 mmol/L (5-15) Blood Urea Nitrogen 13 mg/dL (7-18) Creatinine 0.4 MG/DL (0.55-1.30) L Estimat Glomerular Filtration Rate mL/min (>60) Glucose Level 136 MG/DL (74-106) H Calcium Level 8.6 MG/DL (8.5-10.1) Microbiology Date/Time Source Procedure Growth Status 10/31/18 05:30 Sputum Gram Stain - Final Resulted 10/31/18 05:30 Sputum Culture - Preliminary Gram Negative Edouard Resulted Objective HEENT: Atraumatic. Bitemporal wasting. Pupils are equal, round, and reactive to light and accommodation. Conjunctiva pallor. NECK: JVP cannot be assessed as the patient in positive respiratory inspiration. CVS: Normal S1 and S2. Regular rate and rhythm. Tachycardic. No murmurs, gallops, or rubs. LUNGS: Clear to auscultation bilaterally. ABDOMEN: Soft, nontender, and nondistended. Positive G-tube in place. EXTREMITIES: Decerebrate posture, wasted lower extremity muscles. No edema. Stephan Kincaid MD Nov 02, 2018 20:17
[2018-11-02] MEDS ORDERED: Sodium Chloride for KCL Premix x 2hrs IV SCH (20:30)
[2018-11-03] VITALS: BP 152/85
[2018-11-03] MEDS: Metoclopramide 10mg/2ml Inj IVP SCH ×2 (00:29→05:31)
[2018-11-03 04:00] VITALS: BP 141/93
[2018-11-03 04:40] LABS: HEMATOCRIT 23.6 % (37.0-47.0); HEMOGLOBIN 7.5 G/DL (12.0-16.0); MEAN CORPUSCULAR VOLUME 94 FL (80-99); PLATELET COUNT 185 K/UL (150-450); RED BLOOD COUNT 2.51 M/UL (4.20-5.40); RED CELL DISTRIBUTION WIDTH 16.8 % (11.6-14.8); WHITE BLOOD COUNT 12.2 K/UL (4.8-10.8)
--- NOTE | 2018-11-03 04:45 | Progress Note ---
DATE: 11/02/2018 SUBJECTIVE: The patient is awake, alert, afebrile, and hemodynamically stable. PHYSICAL EXAMINATION: VITAL SIGNS: Blood pressure 154/101, pulse is 79, respirations of 18, and temperature was 98.8. HEENT: Eyes were normal. ENT, mucous membranes were moist and intact. NECK: Supple with no JVD without lymph nodes. Tracheostomy site is clean. LUNGS: Clear without rhonchi, rales, or wheezing. Secretions are small, thin, and duval. HEART: Normal sounds with regular beats. There are no S3, S4, or pericardial rub. ABDOMEN: Soft and nontender with normal bowel sounds. Gastrostomy site is clean. EXTREMITIES: Warm without cyanosis, clubbing, or edema. LABORATORY AND DIAGNOSTIC DATA: Hemoglobin is 7.5, hematocrit 23.9 with MCV of 94, WBC of 11, and platelets are 217,000. Her BUN and creatinine are 13 and 0.4 respectively. Her sodium is 148, potassium 2.8, chloride 111, and CO2 is 30. Chest x-ray reveals no significant change from previous study interstitial opacity in both lungs pleural effusion. IMPRESSION: The patient has hypokalemia. She will receive 40 mEq of KCl. The patient has pneumonia. She is on piperacillin and tazobactam 3.375 g IV piggyback q.8 h. Repeat laboratory tests will be done in the a.m. Che Frias M.D. DR: JANICE JOB#: [id number] CC:
[2018-11-03 05:22] LABS: ANION GAP 9 mmol/L (5-15); BLOOD UREA NITROGEN 11 mg/dL (7-18); CALCIUM 8.4 MG/DL (8.5-10.1); CARBON DIOXIDE 27 MMOL/L (21-32); CHLORIDE 112 MMOL/L (98-107); CREATININE 0.2 MG/DL (0.55-1.30); POTASSIUM 3.6 MMOL/L (3.5-5.1); SODIUM 148 MMOL/L (136-145)
[2018-11-03] MEDS: Piperacillin/Tazobactam 3.375 GM in NS 110 ML IVPB SCH (05:31)
--- NOTE | 2018-11-03 07:05 | NUR ---
NURSE NOTES: Received report from Sergio Mckeon RN. Patient asleep in bed, obtunded and nonverbal, responsive to deep pain. Trach to vent with settings of AC 16, TV 500, FiO2 40%, PEEP 5, no s/s of respiratory distress noted. GT feeding of Glucerna 1.2 on hold until 08:00. HoB elevated. Ellis catheter patent and draining well. Right AC 24g saline lock intact and asymptomatic. Bed locked in lowest position with side rails up x 3. All needs attended to. Will continue to monitor.
--- NOTE | 2018-11-03 07:21 | NUR ---
HAND-OFF: Report given to EPIFANIO MAHONEY.
[2018-11-03 08:00] VITALS: BP 131/82
[2018-11-03] MEDS: Zinc Sulfate 220mg cap GT SCH (08:46)
[2018-11-03] MEDS: Lactobacillus-GG tablet GT SCH (08:47)
[2018-11-03] MEDS: Artificial Tears 1.4% Op Soln BOTH EYES SCH ×3 (08:47→18:12)
[2018-11-03] MEDS: Docusate 100mg/10ml Liq GT SCH (08:47)
[2018-11-03] MEDS: Metoprolol Tartrate 50mg tab GT SCH (08:47)
[2018-11-03] MEDS: Ascorbic Acid 500mg tab GT SCH (08:47)
[2018-11-03] MEDS: Losartan 25mg tab GT SCH (08:47)
--- NOTE | 2018-11-03 10:56 | Pulmonolgy Critical Care Note ---
Critical Care - Asmt/Plan Problems: (1) Respiratory failure, acute and chronic (2) HCAP (healthcare-associated pneumonia) (3) Sepsis (4) ATN (acute tubular necrosis) (5) Atrial fibrillation (6) Anemia, chronic disease (7) Hypothyroidism (8) Neoplasm of esophagus, malignant (9) History of CHF (congestive heart failure) (10) Decubitus skin ulcer (11) History of sudden cardiac arrest Assessment/Plan: will start the pt on Morphine drip, She will get 10 mg of IV morphine and taken off the respiratory. Pt will be send to medical floor . Critical Care - Objective Last 24 Hour Vital Signs Date Time Temp Pulse Resp B/P (MAP) Pulse Ox O2 Delivery O2 Flow Rate FiO2 11/03/18 09:30 76 18 40 11/03/18 08:47 84 11/03/18 08:47 84 131/82 11/03/18 08:47 131/82 11/03/18 08:00 40 11/03/18 08:00 Mechanical Ventilator 11/03/18 08:00 98.2 84 16 131/82 (98) 97 11/03/18 07:45 81 11/03/18 07:08 83 17 40 11/03/18 05:26 90 19 40 11/03/18 04:00 86 11/03/18 04:00 98.6 94 19 141/93 (109) 99 11/03/18 04:00 Mechanical Ventilator 11/03/18 04:00 40 11/03/18 02:53 83 21 40 11/03/18 01:23 80 20 40 11/03/18 00:00 40 11/03/18 00:00 76 11/03/18 00:00 99.6 82 18 152/85 (107) 98 11/03/18 00:00 Mechanical Ventilator 11/02/18 23:30 78 16 40 11/02/18 21:21 79 154/101 11/02/18 21:20 80 16 40 11/02/18 20:00 77 11/02/18 20:00 Mechanical Ventilator 11/02/18 20:00 40 11/02/18 20:00 98.8 79 18 154/101 (118) 96 11/02/18 19:22 75 16 40 11/02/18 17:25 78 20 40 11/02/18 16:07 74 162/98 11/02/18 16:00 86 11/02/18 16:00 Mechanical Ventilator 11/02/18 16:00 40 11/02/18 16:00 99.0 86 22 162/98 (119) 97 11/02/18 14:35 82 20 40 11/02/18 12:45 89 23 40 11/02/18 12:00 40 11/02/18 12:00 100.0 88 24 149/99 (116) 96 11/02/18 12:00 Mechanical Ventilator 11/02/18 11:40 88 11/02/18 11:01 87 24 40 Status: obtunded HEENT: atraumatic Lungs: rales, rhonchi Heart: HR/BP stable Abdomen: soft, non-tender, feeding tube Extremities: no C/C/E Micro: Microbiology Date/Time Source Procedure Growth Status 11/01/18 15:20 Blood Blood Culture - Preliminary NO GROWTH AFTER 24 HOURS Resulted 11/01/18 15:10 Blood Blood Culture - Preliminary NO GROWTH AFTER 24 HOURS Resulted Accucheck: 129 Critical Care - Subjective ROS Limited/Unobtainable: No Interval Events: all family members are at bed site, asking for her to taken off the respirator. Condition: critical FI02: 40 Vent Support Breath Rate: 16 Vent Support Mode: AC Vent Tidal Volume: 500 Sputum Amount: Moderate PEEP: 5.0 PIP: 34 Tube Feeding Amount: 30 I&O: Intake and Output 11/02/18 11/03/18 19:00 07:00 Intake Total 692.5 ml 1277.5 ml Output Total 400 ml 300 ml Balance 292.5 ml 977.5 ml Intake Free Water 50 ml 180 ml IV Total 192.5 ml 737.5 ml Tube Feeding 330 ml 360 ml Other 120 ml Output Urine Total 400 ml 300 ml # Bowel Movements 2 Belem Brooke MD Nov 03, 2018 10:56
[2018-11-03] MEDS ORDERED: Artificial Tears 1.4% Op Soln BOTH EYES PRN (11:00)
[2018-11-03] MEDS ORDERED: Glycopyrrolate 0.2mg/ml 1ml Vial IV PRN ×2 (11:00→12:00)
[2018-11-03] MEDS ORDERED: Prochlorperazine 10mg tab ORAL PRN ×2 (11:00→12:00)
[2018-11-03] MEDS ORDERED: Haloperidol 5mg/ml Inj IM PRN ×2 (11:00→12:00)
[2018-11-03] MEDS ORDERED: Morphine Sulfate 10mg/ml Inj IVP SCH ×2 (11:30→13:30)
--- NOTE | 2018-11-03 11:30 | NUR ---
RESPIRATORY NOTE:Per Dr. Brooke's order pt was terminally extubated. Pt was transferred to 405.
--- NOTE | 2018-11-03 11:41 | NUR ---
TRANSFER TO FLOOR: Patient transferred to med-surg 4E room 405-2, per Dr. Brooke. Report given to EPIFANIO Upton. Family at bedside during time of transfer. Patient is s/p extubation. Nurse aware of comfort care plan.
[2018-11-03 12:00] VITALS: BP 169/86
[2018-11-03] MEDS ORDERED: Acetaminophen 650mg/20.3ml GT PRN (12:00)
[2018-11-03] MEDS ORDERED: PCA Morphine 1mg/ml 30 ML IV PRN ×4 (12:00→13:30)
[2018-11-03] MEDS ORDERED: Rate Change Narcotic Drip MISC PRN ×2 (12:00)
--- NOTE | 2018-11-03 13:22 | NUR ---
NURSE NOTES: DR OROSCO AT BEDSIDE WITH NEW ORDER TO CHANGE CONTINUOUS ENVIRONMENTAL ADVISOR MORPHINE TO 10MG/H AND ONE TIME IV MORPHINE 10MG NOW. ORDERS ENTERED.
[2018-11-03] MEDS: PCA Morphine 1mg/ml 30 ML IV PRN ×3 (13:35→22:27)
--- NOTE | 2018-11-03 15:50 | Infectious Diseases Prog Note ---
Assessment/Plan Assessment/Plan Assessment/Plan: Ms. Danielle is a 72 yo female with PMHx of head and neck cancer, S/P trach, vent dependent, Dysphagia s/p PEG and Encephalopathy who [facility] for hypotension. She is not verbal so history was obtained from the chart. In the ED she was febrile up to 102. Had WBCs of 12. She also had Afib RVR. CXR shows Pneumonitis. She was also noted to have pressures ulcer on her bottom and left face. Sepsis PNA CXR possible Pneumonitis sp cx GNR Leukocytosis up to 13; mild recurent Fever up to 102; improving UA (-); ucx Erma Gram negative bacteremia -10/28 Bcx 1/4 GNR; 11/01 Bcx p Head and neck cancer S/P trach Vent dependent Dysphagia s/p PEG Encephalopathy PLAN - Patient made comfort care per family request, abx were discontinued -11/03 SP ZOsyn #6 -11/01 SP IV Vancomycin #4 - 10/29/18 S/P Cefepime #1 and Levofloxacin ID WILL SIGN OFF NOW. PLEASE CALL BACK IF NEEDED. Subjective Allergies: Coded Allergies: No Known Allergies (Unverified , 10/28/18) Subjective family decided towards comfort care abx were discontinued Objective Vital Signs Last 24 Hour Vital Signs Date Time Temp Pulse Resp B/P (MAP) Pulse Ox O2 Delivery O2 Flow Rate FiO2 11/03/18 12:00 100.3 98 19 169/86 (113) 97 11/03/18 11:36 98.2 11/03/18 09:30 76 18 40 11/03/18 08:47 84 11/03/18 08:47 84 131/82 11/03/18 08:47 131/82 11/03/18 08:00 40 11/03/18 08:00 Mechanical Ventilator 11/03/18 08:00 98.2 84 16 131/82 (98) 97 11/03/18 07:45 81 11/03/18 07:08 83 17 40 11/03/18 05:26 90 19 40 11/03/18 04:00 86 11/03/18 04:00 98.6 94 19 141/93 (109) 99 11/03/18 04:00 Mechanical Ventilator 11/03/18 04:00 40 11/03/18 02:53 83 21 40 11/03/18 01:23 80 20 40 11/03/18 00:00 40 11/03/18 00:00 76 11/03/18 00:00 99.6 82 18 152/85 (107) 98 11/03/18 00:00 Mechanical Ventilator 11/02/18 23:30 78 16 40 11/02/18 21:21 79 154/101 11/02/18 21:20 80 16 40 11/02/18 20:00 77 11/02/18 20:00 Mechanical Ventilator 11/02/18 20:00 40 11/02/18 20:00 98.8 79 18 154/101 (118) 96 11/02/18 19:22 75 16 40 11/02/18 17:25 78 20 40 11/02/18 16:07 74 162/98 11/02/18 16:00 86 11/02/18 16:00 Mechanical Ventilator 11/02/18 16:00 40 11/02/18 16:00 99.0 86 22 162/98 (119) 97 Height (Feet): 5 Height (Inches): 1.00 Weight (Pounds): 120 Objective Objective Narrative Gen: Not responsive, On Vent HEENT: NCAT, MMM, PERRL, left face ulceration, Left ear ulceration NECK: supple, No LAD, No JVD, Trach ( No E/P) LUNGS: CTAB, No W/C, No Accessory muscle use CARDS: RRR, S1, S2, No M/R/G, ABD: Soft, NT, ND, No R/G, + BS, No HSM, No Masses, PED ( No E/P) : Deferred Ext: C/C/E, Pulses 2+ B/L (DP, Rad) NEURO: Not responsive, No spont movements SKIN: Warm/dry, No rashes, Unstagable Decubs Necrotic tissue Microbiology Date/Time Source Procedure Growth Status 11/01/18 15:20 Blood Blood Culture - Preliminary NO GROWTH AFTER 24 HOURS Resulted 11/01/18 15:10 Blood Blood Culture - Preliminary NO GROWTH AFTER 24 HOURS Resulted Laboratory Tests Test 11/03/18 03:10 11/03/18 05:00 White Blood Count 12.2 K/UL (4.8-10.8) H Red Blood Count 2.51 M/UL (4.20-5.40) L Hemoglobin 7.5 G/DL (12.0-16.0) L Hematocrit 23.6 % (37.0-47.0) L Mean Corpuscular Volume 94 FL (80-99) Mean Corpuscular Hemoglobin 29.8 PG (27.0-31.0) Mean Corpuscular Hemoglobin Concent 31.7 G/DL (32.0-36.0) L Red Cell Distribution Width 16.8 % (11.6-14.8) H Platelet Count 185 K/UL (150-450) Mean Platelet Volume 5.5 FL (6.5-10.1) L Neutrophils (%) (Auto) % (45.0-75.0) Lymphocytes (%) (Auto) % (20.0-45.0) Monocytes (%) (Auto) % (1.0-10.0) Eosinophils (%) (Auto) % (0.0-3.0) Basophils (%) (Auto) % (0.0-2.0) Differential Total Cells Counted 100 Neutrophils % (Manual) 82 % (45-75) H Lymphocytes % (Manual) 14 % (20-45) L Monocytes % (Manual) 4 % (1-10) Eosinophils % (Manual) 0 % (0-3) Basophils % (Manual) 0 % (0-2) Band Neutrophils 0 % (0-8) Platelet Estimate Adequate Platelet Morphology Normal Hypochromasia 1+ Anisocytosis 1+ Digoxin Level 1.6 NG/ML (0.9-2.0) Sodium Level 148 MMOL/L (136-145) H Potassium Level 3.6 MMOL/L (3.5-5.1) Chloride Level 112 MMOL/L (98-107) H Carbon Dioxide Level 27 MMOL/L (21-32) Anion Gap 9 mmol/L (5-15) Blood Urea Nitrogen 11 mg/dL (7-18) Creatinine 0.2 MG/DL (0.55-1.30) L Estimat Glomerular Filtration Rate mL/min (>60) Glucose Level 139 MG/DL (74-106) H Calcium Level 8.4 MG/DL (8.5-10.1) L Current Medications Medications (Trade) Dose Ordered Sig/Reginaldo Route PRN Reason Start Time Stop Time Status Last Admin Dose Admin Acetaminophen (Tylenol) 650 mg Q4H PRN GT Temp > 100.5 11/03/18 12:00 11/27/18 11:59 Artificial Tears (Akwa-Tears) 1 drop QIDPRN PRN BOTH EYES Dry Eyes 11/04/18 11:00 12/03/18 10:59 Artificial Tears (Akwa-Tears) 1 drop TID BOTH EYES 11/03/18 13:00 11/27/18 08:59 11/03/18 13:37 Glycopyrrolate (Robinul) 0.1 mg Q6H PRN IV excessive secretions 11/03/18 12:00 12/03/18 11:59 Haloperidol Lactate (Haldol) 1 mg Q30M PRN IM Agitation 11/03/18 12:00 12/03/18 10:59 Miscellaneous Medication (Narcotic Drip Rate Change) 1 ea DAILY PRN MISC To Patient Comfort 11/03/18 12:00 11/08/18 11:59 Miscellaneous Medication (Narcotic Shift Volume) 1 ea Q12HR@0700,1900 MISC 11/03/18 19:00 12/03/18 18:59 Morphine Sulfate 30 ml @ 7 mls/hr BETTING CLERK Protocol PRN IV For Pain 11/03/18 13:30 11/05/18 13:29 Prochlorperazine (Compazine) 10 mg Q6H PRN ORAL Nausea & Vomiting 11/03/18 12:00 12/03/18 11:59 Shauna Bobo M.D. Nov 03, 2018 15:50
--- NOTE | 2018-11-03 15:51 | NUR ---
NURSE NOTES: RN TRIED PROGRAMMING CONTINUOUS COAT CUTTER MORPHINE AT 10CC/H ORDERED, BUT MAX LIMIT OF COAT CUTTER PUMP IS 7MG/HR. RN SPOKE TO LAYNE IN PHARMACY, UNABLE TO OVERRIDE COAT CUTTER PUMP. RN MADE DR OROSCO AWARE, AND NEW ORDER RECEIVED TO CHANGE COAT CUTTER CONTINUOUS MORPHINE TO 7MG/HR.
[2018-11-03 16:00] VITALS: BP 98/59
--- NOTE | 2018-11-03 18:26 | NUR ---
NURSE NOTES: RN DENZEL STATED THEY DID 1 DRESSING CHANGE IN THE MORNING. RN CHANGED DRESSINGS SECOND TIME. PER JUDITH (GRAND-DAUGHTER), FAMILY ONLY WANTS DRESSING CHANGE DONE ONCE A DAY AND UPON SOILAGE. FINISHER TAILOR APPRENTICE CONTINUOUS MORPHINE WAS CHANGED. FIRST SYRINGE EMPTY. RN CALLED PHARMACY AND PER PHARMACY, NO NEED TO CHECK IN WITH PHARMACY TO DISCARD SYRINGE IF IT IS EMPTY. PT IN NO APPARENT DISTRESS AT THIS TIME. WILL CONTINUE TO MONITOR.
[2018-11-03] MEDS ORDERED: Narcotic Shift Volume MISC SCH ×2 (19:00)
--- NOTE | 2018-11-03 19:25 | NUR ---
HAND-OFF: Report given to Flower DASILVA RN.
--- NOTE | 2018-11-03 19:52 | NUR ---
NURSE NOTES: Received patient obtunded,on comfort measures,and on CERAMICS INSTRUCTOR morphine at 7 mg per hour as ordered.
[2018-11-03 20:04] VITALS: BP 143/90
--- NOTE | 2018-11-03 20:11 | Cardiology Progress Note ---
Assessment/Plan Assessment/Plan 1. Paroxysmal atrial fibrillation, currently in SR. Continue metoprolol and digoxin. Keep K above 4.0 to avoid digoxin toxicity. 2. Ventilatory-drive respiratory failure, status post tracheostomy tube placement. 3. Dysphagia, status post PEG placement. 4. Head and neck cancer. 5. Hypothyroidism, on thyroid supplementation. 6. History of hypertension. 7. Electrolyte disturbance, K level better today. Subjective Subjective Sinus rhythm at rate of 79. Objective Last 24 Hour Vital Signs Date Time Temp Pulse Resp B/P (MAP) Pulse Ox O2 Delivery O2 Flow Rate FiO2 11/03/18 20:04 102.7 79 17 143/90 (107) 92 11/03/18 18:00 20 11/03/18 17:46 20 11/03/18 17:16 20 11/03/18 17:01 20 11/03/18 16:46 20 11/03/18 16:31 20 11/03/18 16:00 99.8 94 20 98/59 (72) 90 11/03/18 12:00 100.3 98 19 169/86 (113) 97 11/03/18 11:36 98.2 11/03/18 09:30 76 18 40 11/03/18 08:47 84 11/03/18 08:47 84 131/82 11/03/18 08:47 131/82 11/03/18 08:00 40 11/03/18 08:00 Mechanical Ventilator 11/03/18 08:00 98.2 84 16 131/82 (98) 97 11/03/18 07:45 81 11/03/18 07:08 83 17 40 11/03/18 05:26 90 19 40 11/03/18 04:00 86 11/03/18 04:00 98.6 94 19 141/93 (109) 99 11/03/18 04:00 Mechanical Ventilator 11/03/18 04:00 40 11/03/18 02:53 83 21 40 11/03/18 01:23 80 20 40 11/03/18 00:00 40 11/03/18 00:00 76 11/03/18 00:00 99.6 82 18 152/85 (107) 98 11/03/18 00:00 Mechanical Ventilator 11/02/18 23:30 78 16 40 11/02/18 21:21 79 154/101 11/02/18 21:20 80 16 40 Intake and Output 11/02/18 11/03/18 19:00 07:00 Intake Total 692.5 ml 1277.5 ml Output Total 400 ml 300 ml Balance 292.5 ml 977.5 ml Intake Free Water 50 ml 180 ml IV Total 192.5 ml 737.5 ml Tube Feeding 330 ml 360 ml Other 120 ml Output Urine Total 400 ml 300 ml # Bowel Movements 2 2D Echo: LVEF 60%, Mild LVH, RADHA 1.9 cm2, Mod AR, RVSP 50 mmHg, Mild MR, Pleural Ef Laboratory Tests Test 11/03/18 03:10 11/03/18 05:00 White Blood Count 12.2 K/UL (4.8-10.8) H Red Blood Count 2.51 M/UL (4.20-5.40) L Hemoglobin 7.5 G/DL (12.0-16.0) L Hematocrit 23.6 % (37.0-47.0) L Mean Corpuscular Volume 94 FL (80-99) Mean Corpuscular Hemoglobin 29.8 PG (27.0-31.0) Mean Corpuscular Hemoglobin Concent 31.7 G/DL (32.0-36.0) L Red Cell Distribution Width 16.8 % (11.6-14.8) H Platelet Count 185 K/UL (150-450) Mean Platelet Volume 5.5 FL (6.5-10.1) L Neutrophils (%) (Auto) % (45.0-75.0) Lymphocytes (%) (Auto) % (20.0-45.0) Monocytes (%) (Auto) % (1.0-10.0) Eosinophils (%) (Auto) % (0.0-3.0) Basophils (%) (Auto) % (0.0-2.0) Differential Total Cells Counted 100 Neutrophils % (Manual) 82 % (45-75) H Lymphocytes % (Manual) 14 % (20-45) L Monocytes % (Manual) 4 % (1-10) Eosinophils % (Manual) 0 % (0-3) Basophils % (Manual) 0 % (0-2) Band Neutrophils 0 % (0-8) Platelet Estimate Adequate Platelet Morphology Normal Hypochromasia 1+ Anisocytosis 1+ Digoxin Level 1.6 NG/ML (0.9-2.0) Sodium Level 148 MMOL/L (136-145) H Potassium Level 3.6 MMOL/L (3.5-5.1) Chloride Level 112 MMOL/L (98-107) H Carbon Dioxide Level 27 MMOL/L (21-32) Anion Gap 9 mmol/L (5-15) Blood Urea Nitrogen 11 mg/dL (7-18) Creatinine 0.2 MG/DL (0.55-1.30) L Estimat Glomerular Filtration Rate mL/min (>60) Glucose Level 139 MG/DL (74-106) H Calcium Level 8.4 MG/DL (8.5-10.1) L Microbiology Date/Time Source Procedure Growth Status 11/01/18 15:20 Blood Blood Culture - Preliminary NO GROWTH AFTER 24 HOURS Resulted 11/01/18 15:10 Blood Blood Culture - Preliminary NO GROWTH AFTER 24 HOURS Resulted Objective HEENT: Atraumatic. Bitemporal wasting. Pupils are equal, round, and reactive to light and accommodation. Conjunctiva pallor. NECK: JVP cannot be assessed as the patient in positive respiratory inspiration. CVS: Normal S1 and S2. Regular rate and rhythm. Tachycardic. No murmurs, gallops, or rubs. LUNGS: Clear to auscultation bilaterally. ABDOMEN: Soft, nontender, and nondistended. Positive G-tube in place. EXTREMITIES: Decerebrate posture, wasted lower extremity muscles. No edema. Stephan Kincaid MD Nov 03, 2018 20:11
--- NOTE | 2018-11-03 20:21 | NUR ---
CASE MANAGEMENT: REVIEW SI: PRESSURE WOUND . HCAP . DEHYDRATION EXCISIONAL DEBRIDEMENT OF SACRAL DECUBITUS ULCER 11/02 T 102.7 HR 79 HR 17 BP 143/90 SAT 92% MECH/VENT FIO2 40 IS: KCl 10 mEq IVF @100ML/HR NS IVF @100ML/HR MED/SURG STATUS DCP: PATIENT IS FROM [facility]
[2018-11-03] MEDS ORDERED: Sodium Chloride for KCL Premix x 2hrs IV SCH (21:00)
[2018-11-04] VITALS: BP 102/58
--- NOTE | 2018-11-04 00:30 | Progress Note ---
DATE: 11/03/2018 SUBJECTIVE: The patient is conservative. The patient was extubated today and was transferred to room. PHYSICAL EXAMINATION: VITAL SIGNS: Blood pressure 123/90, pulse is 79, respirations of 17, and temperature was 102.7. HEENT: Eyes were normal. ENT, mucous membranes were moist and intact. Tongue is moderately coated. NECK: Supple with no JVD without lymph nodes. Tracheostomy site is clean. LUNGS: Clear without rhonchi or rales. No wheezing. Secretions are small, thin, and whitish. HEART: Normal sounds with regular heart beats. ABDOMEN: Soft and nontender with normal bowel sounds. Gastrostomy site is clean. EXTREMITIES: Warm without cyanosis, clubbing, or edema. LABORATORY AND DIAGNOSTIC DATA: Hemoglobin is 7.5, hematocrit 23.3, MCV of 94, WBC of 12.2, and platelets is 185. Her BUN and creatinine is 11 and 0.2 respectively. Her sodium is 148, potassium 3.6, chloride 112, CO2 27. His calcium is 8.4. IMPRESSION AND PLAN: The patient appeared to be . She is on morphine drip at 7 mg/hr. Che Frias M.D. DR: Mateus JOB#: [id number] CC:
[2018-11-04] MEDS: PCA Morphine 1mg/ml 30 ML IV PRN (03:01)
[2018-11-04 04:00] VITALS: BP 95/53
[2018-11-04] MEDS ORDERED: Tubing IV Secondary IV ONE (06:21)
[2018-11-04] MEDS ORDERED: NS 275ml ONE (06:21)
--- NOTE | 2018-11-04 06:24 | NUR ---
PRONOUNCEMENT: No Code. Called to pronounce patient. Absence of spontaneous respirations, no cardiac or breath sounds on auscultation. Pupils fixed and dilated. No carotid pulse or chest movement. Patient at 0622. DR Frias notified PER Kandace GODFREY.
--- NOTE | 2018-11-04 06:30 | NUR ---
NURSE NOTES: Patient at 06,pronounced by Nursing Sensor Specialist Roberta.Dr Frias and family notified.
--- NOTE | 2018-11-04 07:30 | NUR ---
NURSE NOTES: Received pt , clean and covered. family on bed side. waiting for mortuary.
--- NOTE | 2018-11-04 07:50 | Discharge Summary ---
Discharge Summary Discharge Summary _ SUMMARY DATE OF ADMISSION: 10/28/2018 DATE OF EXPIRATION: 11/04/2018 REASON FOR ADMISSION: 72 years old female with history of sudden cardiac arrest, anoxic encephalopathy , head and neck cancer, status post tracheostomy, status post PEG, hypertension , CHF, COPD, hypothyroidism, on total life support in subacute unit, was brought to emergency department with chief complaint of worsening mental status and being less responsive , possible pneumonia. Laboratory work-up revealed leukocytosis WBC 12.1, anemia with hemoglobin 8.4 , evidence of dehydration with BUN 50 creatinine 0.6., Lactic acid 1.9. AST 80, ALT 39. Troponin negative . EKG revealed sinus rhythm, no acute ischemic changes. Urinalysis revealed +1 protein , +1 leukocyte esterase, occasional yeast. Chest x-ray demonstrated prominent interstitium of the lungs. Suspected chronic disease versus fibroids fibrosis. Superimposed pneumonitis or mild CHF. Possible left lower lung infiltrate. Tracheostomy. Patient was admitted to [facility] for further management. CONSULTANTS: paper slitter Dr. Kincaid pulmonary Dr. Brooke ID specialist Dr. Bobo surgery Dr. Tran [facility] COURSE: Patient admitted to [facility]. Ventilator support and tracheostomy care provided. Pulmonary toilet provided. Patient was followed-up with ABG and chest x-ray. Patient started on empiric antibiotic as per ID specialist recommendations. Blood culture revealed bacteroides , likely contaminant ; repeated blood culture were negative. Urine culture revealed Rema. Sputum culture revealed Acinetobacter , Pseudomonas, Achromobacter. Patient had stage 4 large sacral decubitus ulcer. Surgeon followed. Patient subsequently undergone on 10/30 excisional debridement of sacral decubitus ulcer with plan for potential flap or graft in future. Wound care provided as per surgeon recommendations. Cap Maker followed. Patient had history of paroxysmal atrial fibrillation. She had one episode of atrial flutter with mild tachycardia. Patient was on beta-yg and digoxin. Digoxin level therapeutic. No anticoagulation given anemia, multiply comorbidities and poor prognosis. Patient spontaneously converted to sinus rhythm without further recurrence . Electrolytes were closely monitored, nephrotoxins were avoided. Potassium and magnesium were replaced. With IV fluids BUN down to 11, creatinine down to 0.2. Hemoglobin and hematocrit were closely monitored with goal to keep hemoglobin above 7. Anemia work-up was consistent with anemia of chronic disease. Stool for occult blood was positive. Patient required transfusion of 1 unit of packed red blood cells for hemoglobin 6.7. Patient continued to be unresponsive . Per family wishes on 11/03 patient was made DNR /DNI status and placed on dying protocol with comfort care. Patient was subsequently disconnected from ventilator. All treatment and medications stopped . Patient was placed on morphine drip and transferred to medical surgical floor. Supplemental oxygen provided via tracheostomy collar. Comfort measures provided. Patient condition was rapidly deteriorating. She was pronounced at 6:22 on 11/04 . Cause of : cardiopulmonary arrest FINAL DIAGNOSES Sepsis Healthcare associated pneumonia Acute on chronic respiratory failure Tracheostomy status Paroxysmal atrial fibrillation Anemia of chronic disease Head and neck CA Congestive heart failure Multiple decubitus ulcers, present on admission, including stage 4 sacral decubitus ulcer Status post excisional debridement of sacral decubitus 10/30 History of sudden cardiac arrest Dysphagia status post PEG Anoxic encephalopathy ATN -resolved I have been assigned to dictate discharge summary for this account. I was not involved in the patient's management. Melody Ambrocio NP Nov 04, 2018 07:50
--- NOTE | 2018-11-04 07:58 | NUR ---
HAND-OFF: Report given to Meek Crenshaw RN. Awaiting mortuary as per family.
[2018-11-04] MEDS ORDERED: Artificial Tears 1.4% Op Soln BOTH EYES PRN (11:00)
--- NOTE | 2018-11-04 13:56 | NUR ---
NURSE NOTES: mortuary picked pt with accompany of the family.
--- NOTE | 2018-11-05 12:57 | Cardiology Report ---
APPROVED REPORT EXAM: Two-dimensional and M-mode echocardiogram with Doppler and color Doppler. INDICATION LV FUNCTION M-Mode DIMENSIONS IVSd0.7 (0.7-1.1cm)Left Atrium (MM)2.8 (1.6-4.0cm) LVDd3.8 (3.5-5.6cm)Aortic Root1.9 (2.0-3.7cm) PWd0.9 (0.7-1.1cm)Aortic Cusp Exc.1.0 (1.5-2.0cm) IVSs1.0 cm LVDs3.8 (2.5-4.0cm) PWs0.9 cm Normal left ventricular chamber size, systolic function and wall motion . Left ventricular ejection fraction estimated to be 60-65 %. Mild left ventricular hypertrophy by 2-D. Anterior Echo-free space, may be due to pericardial fat or effusion. Pleural effusion present . All other chamber sizes is within normal limits. Aortic valve calcification with decreased cusp excursion c/w aortic stenosis. Thickened mitral valve leaflets with normal excursion. Mitral annulus and aortic root calcification, echogenic material noted on posterior mitral valve leaflet . Normal pulmonic valve structure. Normal tricuspid valve structure. IVC at normal size without physiologic collapse. A color flow and spectral Doppler study was performed and revealed: Moderate aortic regurgitation. Peak aortic valve gradient of 16 mm Hg and a mean of 9 mmHg. Aortic valve area 1.9 cm2 calculated by continuity equation. Mild mitral regurgitation. Left ventricular diastolic function is not diagnostic due to arrhythmia . Moderate tricuspid regurgitation. Tricuspid systolic velocities suggests peak right ventricular systolic pressure of 50 mmHg,consistent with moderate pulmonary hypertension. Pulmonic regurgitation present .
--- NOTE | 2018-11-09 00:31 | Coder Physician Query ---
Clarification is required for compliance, coding accuracy, and to reflect severity of illness for this patient Dear Dr. Tran Date:11/08/18 Because there is documentation in the medical record of "Excisional Debridement, " clarification is needed. Per your operative report, "Excisional debridement of sacral decubitus ulcer with plans for potential flap or graft in future" was documented. Please document the depth of tissue in this debridement. [] Skin [] Subcutaneous tissue and Fascia [] Muscle [XX] Bone Present on Admission: [X] Yes [] No [] Clinically Undetermined Physician signature Date Please also document in your Progress Notes and/or Discharge Summary and indicate if the condition was present on admission. YANNI
--- NOTE | 2018-11-09 00:40 | Coder Physician Query ---
Clarification is required for compliance, coding accuracy, and to reflect severity of illness for this patient Dear Dr. Tran Date:11/08/18 Because there is documentation in the medical record of "Debridement," clarification is needed. Your operative report states, "Excisional debridement of sacral decubitus ulcer with plans for potential flap or graft in future." For documentation and coding clarity, please document the depth of tissue debrided. [] Skin [] Subcutaneous tissue and Fascia [] Muscle [XX] Bone Present on Admission: [X] Yes [] No [] Clinically Undetermined Physician signature Date Please also document in your Progress Notes and/or Discharge Summary and indicate if the condition was present on admission. YANNI
== END 2018-11-04 06:22 | disposition expired | DRG 853 ==
LOC: EDBD 00:53 → EMR 02:19 → 2W 02:23 → EDBEDREQ 02:24 → 4E 11-03 11:44
PROC: 5A1955Z Respiratory Ventilation, Greater than 96 Consecutive Hours (ICD-10-PCS; principal; 2018-10-28)
PROC: 0QB10ZZ Excision of Sacrum, Open Approach (ICD-10-PCS; 2018-10-30)
DX: A41.9 Sepsis, unspecified organism (principal); L89.154 Pressure ulcer of sacral region, stage 4; J96.20 Acute and chronic respiratory failure, unspecified whether with hypoxia or hypercapnia; N17.0 Acute kidney failure with tubular necrosis; J18.9 Pneumonia, unspecified organism; Z99.11 Dependence on respirator [ventilator] status; G93.1 Anoxic brain damage, not elsewhere classified; N39.0 Urinary tract infection, site not specified; C15.9 Malignant neoplasm of esophagus, unspecified; Z93.0 Tracheostomy status; E86.0 Dehydration; I50.9 Heart failure, unspecified; I48.0 Paroxysmal atrial fibrillation; Y95 Nosocomial condition; Z93.1 Gastrostomy status; Z86.74 Personal history of sudden cardiac arrest; I11.0 Hypertensive heart disease with heart failure; E03.9 Hypothyroidism, unspecified; D64.9 Anemia, unspecified; R13.10 Dysphagia, unspecified; Z51.5 Encounter for palliative care
CPT/HCPCS: 36415; 71045; 76770; 80048; 80053; 80162; 80202; 81001; 81003; 82043; 82270; 82306; 82378; 82550; 82553; 82607; 82746; 82962; 83036; 83540; 83550; 83605; 83615; 83735; 83880; 83935; 84100; 84300; 84450; 84460; 84484; 84550; 85007; 85025; 85044; 85060; 85610; 85651; 85730; 86850; 86900; 86901; 86920; 87040; 87070; 87081; 87086; 87181; 87205; 89050; 93306; 94002; 94003; 94640; 94664; 96361; 96365; 96367; 99285; J2405; J2765; J7620; J8499